=== PATIENT | female | born 1950 | race African-American/Black ===

== ENCOUNTER 2016-11-18 20:04 | Inpatient (IN) | payer MEDICAID ==
[~2016-11-18] VITALS: Ht 167.6 cm; Wt 60.0 kg
[~2016-11-18 20:04] MED LIST: BENZ1TAB10 PO; DIVA500T35 PO; ESCI20TA36 PO; GABA-533 PO; LOSA100T29 PO; MIRT30TA6 PO; OLAN15TA18 PO; OXCA300T PO; SIMV10TA6 PO
[2016-11-18] MEDS ORDERED: CEPH500 PO (20:32)
[2016-11-18] MEDS ORDERED: CLON.1 PO (20:32)
[2016-11-18] MEDS ORDERED: FERR-89 PO (20:32)
[2016-11-18 21:22] LABS: ADD UA MICROSCOPIC YES; APPEARANCE,URINE CLOUDY (CLEAR); GLUCOSE, URINE (UA) NEGATIVE (NEGATIVE); KETONES,URINE NEGATIVE (NEGATIVE); LEUKOCYTE ESTERASE ,URINE MODERATE (NEGATIVE); OCCULT BLOOD,URINE LARGE (NEGATIVE); PH,URINE 5.5 (5.0-8.0); PROTEIN,URINE SEE CONFIRM (NEGATIVE)
[2016-11-18 21:39] LABS: SULFOSALICYLIC ACID,URINE 2+ (Negative)
[2016-11-18 21:40] LABS: SQUAMOUS EPITHELIAL CELL,UR Moderate /LPF (None Seen)
[2016-11-18 21:41] LABS: RBC,URINE 51-100 /HPF (0-2); WBC,URINE 26-50 /HPF (0-5)
[2016-11-18 21:42] LABS: CREATININE 1.41 mg/dL (0.60-1.30); POTASSIUM 3.6 mmol/L (3.5-5.1)
[2016-11-18 21:50] LABS: ALBUMIN 3.2 g/dL (3.4-5.0); BILIRUBIN,TOTAL 0.1 mg/dL (0.1-1.0); TOTAL PROTEIN, SERUM 8.3 g/dL (6.4-8.2)
[2016-11-18 21:51] LABS: BASOPHILS % (AUTO) 0.1 % (0.0-2.0); EOSINOPHILS # (AUTO) 0.08 K/uL (0.00-0.70); EOSINOPHILS % (AUTO) 1.57 % (1.0-6.0); HEMATOCRIT 33.4 % (36-46); HEMOGLOBIN 10.5 g/dL (12.0-16.0); LYMPHOCYTES # (AUTO) 2.6 K/uL (1.0-4.8); LYMPHOCYTES % (AUTO) 48.9 % (22.0-44.0); MEAN CORPUSCULAR HGB CONC 31.5 G/dL (31.0-37.0); MEAN CORPUSCULAR VOLUME 70 fL (80-100); MONOCYTES # (AUTO) 0.4 K/uL (0.1-1.0); MONOCYTES % (AUTO) 8.3 % (2.0-9.0); NEUTROPHILS # (AUTO) 2.2 K/uL (1.8-7.7); NEUTROPHILS % (AUTO) 41.2 % (40.0-70.0); PLATELET COUNT (AUTO) 141 K/uL (150-450); RED BLOOD CELL COUNT(AUTO) 4.77 MIL/uL (4.00-5.20); RED CELL DISTRIBUTION WIDTH 21.5 % (11.5-14.5); WHITE BLOOD COUNT (AUTO) 5.3 K/uL (4.5-11.0)
[2016-11-18] MEDS ORDERED: 0.9% SODIUM CHLORIDE 10 ML SYRINGE IVP PRN (23:45)
[2016-11-18] MEDS ORDERED: LORazepam 2 MG/ML VIAL IVP ONE (23:45)
[2016-11-18] MEDS ORDERED: ACETAMINOPHEN 325 MG TABLET PO PRN (23:45)
[2016-11-18] MEDS ORDERED: CefTRIAXone 1 GM/DEXTROSE 50 ML IV ONE (23:45)
[2016-11-18] MEDS ORDERED: ONDANSETRON HCL 4 MG/2 ML VIAL IVP PRN (23:45)
[2016-11-19] VITALS (7 sets, daily range): BP systolic 110–150; BP diastolic 67–80
[2016-11-19] MEDS ORDERED: IPRATROPIUM BROMIDE 0.5 MG/2.5 ML NEB SOLUTION NEB PRN (00:30)
[2016-11-19] MEDS ORDERED: ALBUTEROL SULFATE 2.5 MG/0.5 ML NEB SOLUTION NEB PRN (00:30)
[2016-11-19] MEDS ORDERED: ACETAMINOPHEN 325 MG TABLET PO PRN (00:30)
[2016-11-19] MEDS ORDERED: BISACODYL 10 MG RECTAL RECTAL SUPPOSITORY PR PRN (00:30)
[2016-11-19] MEDS: ZOLPIDEM TARTRATE 5 MG TABLET PO PRN (00:57)
[2016-11-19] MEDS: SODIUM CHLORIDE 0.9% 1,000 ML IV SCH ×2 (00:58→14:52)
[2016-11-19] MEDS: GABAPENTIN 400 MG CAPSULE PO SCH ×3 (08:04→19:39)
[2016-11-19] MEDS: HYDROCODONE/ACETAMINOPHEN 5-325 MG TABLET PO PRN ×3 (08:05→19:40)
[2016-11-19] MEDS: BENZTROPINE MESYLATE 1 MG TABLET PO SCH ×2 (08:05→19:39)
[2016-11-19] MEDS: DIVALPROEX SODIUM 500 MG DR TABLET PO SCH ×3 (08:05→19:40)
[2016-11-19] MEDS: ESCITALOPRAM OXALATE 20 MG TABLET PO SCH (08:05)
[2016-11-19] MEDS: PANTOPRAZOLE SODIUM 40 MG DR TABLET PO SCH (08:06)
[2016-11-19] MEDS: OXcarbazepine 300 MG TABLET PO SCH (08:06)
[2016-11-19] MEDS: HEPARIN SODIUM,PORCINE 5,000 UNITS/ML VIAL SQ SCH ×2 (08:06→19:40)
[2016-11-19] MEDS ORDERED: PHENAZOPYRIDINE HCL 200 MG TABLET PO PRN (17:45)
[2016-11-19] MEDS: MIRTAZAPINE 30 MG TABLET PO SCH (19:41)
[2016-11-19] MEDS: CefTRIAXone 1 GM/DEXTROSE 50 ML IV SCH (23:21)
[2016-11-20] VITALS (7 sets, daily range): BP systolic 139–157; BP diastolic 69–85
[2016-11-20] MEDS: SODIUM CHLORIDE 0.9% 1,000 ML IV SCH ×3 (05:15→15:45)
[2016-11-20 05:54] LABS: BASOPHILS # (AUTO) 0.03 K/uL (0.00-0.20); BASOPHILS % (AUTO) 0.7 % (0.0-2.0); EOSINOPHILS # (AUTO) 0.07 K/uL (0.00-0.70); EOSINOPHILS % (AUTO) 1.51 % (1.0-6.0); HEMATOCRIT 30.6 % (36-46); HEMOGLOBIN 9.5 g/dL (12.0-16.0); LYMPHOCYTES # (AUTO) 3.1 K/uL (1.0-4.8); LYMPHOCYTES % (AUTO) 69.5 % (22.0-44.0); MEAN CORPUSCULAR HEMOGLOBIN 21.8 pg (26.0-34.0); MEAN CORPUSCULAR HGB CONC 30.9 G/dL (31.0-37.0); MEAN CORPUSCULAR VOLUME 71 fL (80-100); MONOCYTES # (AUTO) 0.3 K/uL (0.1-1.0); NEUTROPHILS % (AUTO) 21.3 % (40.0-70.0); PLATELET COUNT (AUTO) 113 K/uL (150-450); RED BLOOD CELL COUNT(AUTO) 4.33 MIL/uL (4.00-5.20); RED CELL DISTRIBUTION WIDTH 21.4 % (11.5-14.5); WHITE BLOOD COUNT (AUTO) 4.5 K/uL (4.5-11.0)
[2016-11-20 06:12] LABS: ALBUMIN 2.5 g/dL (3.4-5.0); BILIRUBIN,TOTAL 0.2 mg/dL (0.1-1.0); CALCIUM, TOTAL 8.3 mg/dL (8.8-10.5); CREATININE 1.14 mg/dL (0.60-1.30); MAGNESIUM 1.6 mg/dL (1.80-2.40); POTASSIUM 4.1 mmol/L (3.5-5.1); TOTAL PROTEIN, SERUM 6.8 g/dL (6.4-8.2)
[2016-11-20] MEDS: HEPARIN SODIUM,PORCINE 5,000 UNITS/ML VIAL SQ SCH ×2 (08:39→20:12)
[2016-11-20] MEDS: DIVALPROEX SODIUM 500 MG DR TABLET PO SCH ×3 (08:39→20:11)
[2016-11-20] MEDS: PANTOPRAZOLE SODIUM 40 MG DR TABLET PO SCH (08:39)
[2016-11-20] MEDS: BENZTROPINE MESYLATE 1 MG TABLET PO SCH ×2 (08:39→20:11)
[2016-11-20] MEDS: GABAPENTIN 400 MG CAPSULE PO SCH ×3 (08:39→20:11)
[2016-11-20] MEDS: ESCITALOPRAM OXALATE 20 MG TABLET PO SCH (08:39)
[2016-11-20] MEDS: OXcarbazepine 300 MG TABLET PO SCH (08:39)
[2016-11-20 09:35] LABS: RBC MORPHOLOGY COMMENT ABNORMAL RBC MORPH
[2016-11-20] MEDS: PHENAZOPYRIDINE HCL 200 MG TABLET PO SCH ×3 (10:29→20:11)
[2016-11-20] MEDS: HYDROCODONE/ACETAMINOPHEN 5-325 MG TABLET PO PRN (10:29)
[2016-11-20] MEDS: MIRTAZAPINE 30 MG TABLET PO SCH (20:12)
[2016-11-20] MEDS: CefTRIAXone 1 GM/DEXTROSE 50 ML IV SCH (22:02)
[2016-11-20] MEDS: ZOLPIDEM TARTRATE 5 MG TABLET PO PRN (22:02)
[2016-11-21 04:32] VITALS: BP 127/70
[2016-11-21 08:08] VITALS: BP 135/78
[2016-11-21] MEDS: DIVALPROEX SODIUM 500 MG DR TABLET PO SCH ×3 (08:17→20:12)
[2016-11-21] MEDS: ESCITALOPRAM OXALATE 20 MG TABLET PO SCH (08:17)
[2016-11-21] MEDS: HEPARIN SODIUM,PORCINE 5,000 UNITS/ML VIAL SQ SCH ×2 (08:17→20:13)
[2016-11-21] MEDS: PHENAZOPYRIDINE HCL 200 MG TABLET PO SCH ×3 (08:17→20:13)
[2016-11-21] MEDS: OXcarbazepine 300 MG TABLET PO SCH (08:17)
[2016-11-21] MEDS: GABAPENTIN 400 MG CAPSULE PO SCH ×3 (08:17→20:13)
[2016-11-21] MEDS: PANTOPRAZOLE SODIUM 40 MG DR TABLET PO SCH (08:17)
[2016-11-21] MEDS: BENZTROPINE MESYLATE 1 MG TABLET PO SCH ×2 (08:17→20:13)
[2016-11-21 08:44] LABS: EOSINOPHILS % (AUTO) 1.9 % (1.0-6.0); HEMATOCRIT 33.5 % (36-46); HEMOGLOBIN 10.3 g/dL (12.0-16.0); LYMPHOCYTES # (AUTO) 2.6 K/uL (1.0-4.8); LYMPHOCYTES % (AUTO) 72.6 % (22.0-44.0); MEAN CORPUSCULAR HEMOGLOBIN 21.7 pg (26.0-34.0); MEAN CORPUSCULAR HGB CONC 30.8 G/dL (31.0-37.0); MEAN CORPUSCULAR VOLUME 71 fL (80-100); MONOCYTES # (AUTO) 0.4 K/uL (0.1-1.0); MONOCYTES % (AUTO) 10.1 % (2.0-9.0); NEUTROPHILS # (AUTO) 0.6 K/uL (1.8-7.7); NEUTROPHILS % (AUTO) 15.4 % (40.0-70.0); PLATELET COUNT (AUTO) 118 K/uL (150-450); RED BLOOD CELL COUNT(AUTO) 4.73 MIL/uL (4.00-5.20); WHITE BLOOD COUNT (AUTO) 3.6 K/uL (4.5-11.0)
[2016-11-21 08:57] LABS: CALCIUM, TOTAL 9.1 mg/dL (8.8-10.5); CREATININE 1.26 mg/dL (0.60-1.30); POTASSIUM 4.1 mmol/L (3.5-5.1)
[2016-11-21 09:03] LABS: ALBUMIN 2.9 g/dL (3.4-5.0); BILIRUBIN,TOTAL 0.2 mg/dL (0.1-1.0); TOTAL PROTEIN, SERUM 7.6 g/dL (6.4-8.2)
[2016-11-21] MEDS: ONDANSETRON HCL 4 MG/2 ML VIAL IVP PRN ×2 (09:33→18:33)
[2016-11-21 09:52] LABS: RBC MORPHOLOGY COMMENT ABNORMAL RBC MORPH
[2016-11-21 11:25] VITALS: BP 142/68
[2016-11-21] MEDS: SODIUM CHLORIDE 0.9% 1,000 ML IV SCH (13:11)
[2016-11-21 15:13] VITALS: BP 120/72
[2016-11-21 19:55] VITALS: BP 151/62
[2016-11-21] MEDS: MIRTAZAPINE 30 MG TABLET PO SCH (20:14)
[2016-11-21] MEDS: HYDROCODONE/ACETAMINOPHEN 5-325 MG TABLET PO PRN (20:15)
[2016-11-21] MEDS: ZOLPIDEM TARTRATE 5 MG TABLET PO PRN (22:02)
[2016-11-21] MEDS: CefTRIAXone 1 GM/DEXTROSE 50 ML IV SCH (23:22)
[2016-11-21 23:30] VITALS: BP 134/70
[2016-11-22] MEDS ORDERED: PROPOFOL 1% 20 ML VIAL IVP ONE (01:02)
[2016-11-22] MEDS ORDERED: NEOSTIGMINE METHYLSULFATE 1 MG/ML 10 ML VIAL IVP ONE (01:02)
[2016-11-22] MEDS ORDERED: PHENYLEPHRINE HCL 10 MG/ML VIAL IVP ONE (01:02)
[2016-11-22] MEDS ORDERED: GLYCOPYRROLATE 0.2 MG/ML VIAL IM ONE (01:02)
[2016-11-22] MEDS ORDERED: ONDANSETRON HCL 4 MG/2 ML VIAL IVP ONE (01:02)
[2016-11-22] MEDS ORDERED: FentaNYL CITRATE-PF 100 MCG/2 ML VIAL IVP ONE (01:02)
[2016-11-22] MEDS ORDERED: KETOROLAC TROMETHAMINE 60 MG/2 ML VIAL IM ONE (01:02)
[2016-11-22] MEDS ORDERED: ROCURONIUM BROMIDE 10 MG/ML 5 ML VIAL IVP ONE (01:02)
[2016-11-22] MEDS ORDERED: LIDOCAINE HCL/PF 2% 5 ML VIAL IM ONE (01:02)
[2016-11-22] MEDS ORDERED: MIDAZOLAM HCL 2 MG/2 ML VIAL IVP ONE (01:02)
[2016-11-22] MEDS ORDERED: EPHEDrine SULFATE 50 MG/ML VIAL IM ONE (01:02)
[2016-11-22] MEDS: SODIUM CHLORIDE 0.9% 1,000 ML IV SCH (02:27)
[2016-11-22 04:56] VITALS: BP 145/81
[2016-11-22] MEDS ORDERED: RINGERS SOLUTION,LACTATED 1,000 ML IV ONE (06:30)
[2016-11-22] MEDS ORDERED: IOHEXOL 240 MG/ML 20 ML VIAL ONE ×2 (06:50)
[2016-11-22] MEDS ORDERED: SODIUM CL IRRIG SOLN BAG 3,000 ML IRRIG ONE (06:50)
[2016-11-22 06:53] LABS: HEMATOCRIT 28.9 % (36-46); HEMOGLOBIN 9.2 g/dL (12.0-16.0); MEAN CORPUSCULAR HEMOGLOBIN 22.1 pg (26.0-34.0); MEAN CORPUSCULAR HGB CONC 31.8 G/dL (31.0-37.0); MEAN CORPUSCULAR VOLUME 69 fL (80-100); PLATELET COUNT (AUTO) 121 K/uL (150-450); RED BLOOD CELL COUNT(AUTO) 4.16 MIL/uL (4.00-5.20); RED CELL DISTRIBUTION WIDTH 21.3 % (11.5-14.5); WHITE BLOOD COUNT (AUTO) 3.8 K/uL (4.5-11.0)
[2016-11-22 07:14] LABS: ALBUMIN 2.5 g/dL (3.4-5.0); CALCIUM, TOTAL 8.7 mg/dL (8.8-10.5); CREATININE 1.35 mg/dL (0.60-1.30); POTASSIUM 4.4 mmol/L (3.5-5.1); TOTAL PROTEIN, SERUM 6.8 g/dL (6.4-8.2)
[2016-11-22 07:46] LABS: BILIRUBIN,TOTAL 0.1 mg/dL (0.1-1.0)
[2016-11-22] MEDS ORDERED: RINGERS SOLUTION,LACTATED 500 ML IV ONE (09:02)
[2016-11-22] MEDS ORDERED: FentaNYL CITRATE-PF 100 MCG/2 ML VIAL IVP PRN (09:15)
[2016-11-22] MEDS ORDERED: MEPERIDINE-PF 25 MG/ML SYRINGE IVP PRN (09:15)
[2016-11-22] MEDS ORDERED: OXYGEN THERAPY IH SCH (09:26)
[2016-11-22] MEDS: DIVALPROEX SODIUM 500 MG DR TABLET PO SCH ×3 (10:05→20:46)
[2016-11-22] MEDS: GABAPENTIN 400 MG CAPSULE PO SCH ×3 (10:05→20:46)
[2016-11-22] MEDS: PANTOPRAZOLE SODIUM 40 MG DR TABLET PO SCH (10:06)
[2016-11-22] MEDS: BENZTROPINE MESYLATE 1 MG TABLET PO SCH ×2 (10:06→20:46)
[2016-11-22] MEDS: ESCITALOPRAM OXALATE 20 MG TABLET PO SCH (10:06)
[2016-11-22] MEDS: OXcarbazepine 300 MG TABLET PO SCH (10:06)
[2016-11-22] MEDS: HEPARIN SODIUM,PORCINE 5,000 UNITS/ML VIAL SQ SCH ×2 (10:06→20:46)
[2016-11-22] MEDS: FERROUS SULFATE 325 MG EC TABLET PO SCH ×3 (10:06→20:45)
[2016-11-22] MEDS: CloNIDine HCL 0.1 MG TABLET PO SCH ×2 (10:06→20:45)
[2016-11-22] MEDS: PHENAZOPYRIDINE HCL 200 MG TABLET PO SCH ×3 (10:07→20:45)
[2016-11-22] MEDS: HYDROCODONE/ACETAMINOPHEN 5-325 MG TABLET PO PRN (10:18)
[2016-11-22 10:48] LABS: BAND NEUTROPHILS % (MANUAL) 7 % (1-5); LYMPHOCYTES % (MANUAL) 57 % (22-44); RBC MORPHOLOGY COMMENT ABNORMAL RBC MORPH; TOTAL CELLS COUNTED 100
[2016-11-22 11:06] VITALS: BP 184/87
[2016-11-22 15:09] VITALS: BP 169/92
[2016-11-22 16:22] VITALS: BP 147/82
[2016-11-22 19:29] VITALS: BP 133/61
[2016-11-22] MEDS: SIMVASTATIN 10 MG TABLET PO SCH (20:45)
[2016-11-22] MEDS: MIRTAZAPINE 30 MG TABLET PO SCH (20:46)
[2016-11-22] MEDS: CefTRIAXone 1 GM/DEXTROSE 50 ML IV SCH (22:52)
[2016-11-22 22:58] VITALS: BP 148/74
[2016-11-23 05:20] VITALS: BP 124/74
[2016-11-23] MEDS: HYDROCODONE/ACETAMINOPHEN 5-325 MG TABLET PO PRN ×3 (05:39→20:37)
[2016-11-23] MEDS: SODIUM CHLORIDE 0.9% 1,000 ML IV SCH ×2 (05:39→15:49)
[2016-11-23 06:51] LABS: HEMATOCRIT 27.3 % (36-46); HEMOGLOBIN 8.7 g/dL (12.0-16.0); MEAN CORPUSCULAR HEMOGLOBIN 22.4 pg (26.0-34.0); MEAN CORPUSCULAR HGB CONC 31.9 G/dL (31.0-37.0); MEAN CORPUSCULAR VOLUME 70 fL (80-100); PLATELET COUNT (AUTO) 88 K/uL (150-450); RED BLOOD CELL COUNT(AUTO) 3.89 MIL/uL (4.00-5.20); RED CELL DISTRIBUTION WIDTH 21.4 % (11.5-14.5); WHITE BLOOD COUNT (AUTO) 4.3 K/uL (4.5-11.0)
[2016-11-23 07:15] VITALS: BP 131/78
[2016-11-23 07:19] LABS: ALBUMIN 2.5 g/dL (3.4-5.0); BILIRUBIN,TOTAL 0.2 mg/dL (0.1-1.0); CALCIUM, TOTAL 8.5 mg/dL (8.8-10.5); CREATININE 1.29 mg/dL (0.60-1.30); POTASSIUM 4.3 mmol/L (3.5-5.1); TOTAL PROTEIN, SERUM 6.5 g/dL (6.4-8.2)
[2016-11-23 08:03] LABS: BAND NEUTROPHILS % (MANUAL) 9 % (1-5); LYMPHOCYTES % (MANUAL) 62 % (22-44); RBC MORPHOLOGY COMMENT ABNORMAL RBC MORPH; TOTAL CELLS COUNTED 100
[2016-11-23] MEDS: HEPARIN SODIUM,PORCINE 5,000 UNITS/ML VIAL SQ SCH ×2 (08:35→21:12)
[2016-11-23] MEDS: GABAPENTIN 400 MG CAPSULE PO SCH ×3 (08:35→20:38)
[2016-11-23] MEDS: FERROUS SULFATE 325 MG EC TABLET PO SCH ×4 (08:35→20:38)
[2016-11-23] MEDS: ESCITALOPRAM OXALATE 20 MG TABLET PO SCH (08:36)
[2016-11-23] MEDS: PANTOPRAZOLE SODIUM 40 MG DR TABLET PO SCH (08:36)
[2016-11-23] MEDS: DIVALPROEX SODIUM 500 MG DR TABLET PO SCH ×3 (08:36→20:38)
[2016-11-23] MEDS: BENZTROPINE MESYLATE 1 MG TABLET PO SCH ×2 (08:36→20:38)
[2016-11-23] MEDS: PHENAZOPYRIDINE HCL 200 MG TABLET PO SCH ×3 (08:36→20:38)
[2016-11-23] MEDS: CloNIDine HCL 0.1 MG TABLET PO SCH ×2 (08:37→20:38)
[2016-11-23] MEDS: OXcarbazepine 300 MG TABLET PO SCH (08:37)
[2016-11-23 11:27] VITALS: BP 134/66
[2016-11-23 15:15] VITALS: BP 142/65
[2016-11-23] MEDS: MAGNESIUM HYDROXIDE SUSPENSION 30 ML UDCUP PO PRN (17:21)
[2016-11-23 20:01] VITALS: BP 148/73
[2016-11-23] MEDS: SIMVASTATIN 10 MG TABLET PO SCH (20:38)
[2016-11-23] MEDS: MIRTAZAPINE 30 MG TABLET PO SCH (20:38)
[2016-11-23] MEDS: CefTRIAXone 1 GM/DEXTROSE 50 ML IV SCH (22:30)
[2016-11-24 00:05] VITALS: BP 142/74
[2016-11-24] MEDS: HYDROCODONE/ACETAMINOPHEN 5-325 MG TABLET PO PRN ×2 (00:34→08:03)
[2016-11-24] MEDS: ZOLPIDEM TARTRATE 5 MG TABLET PO PRN (00:34)
[2016-11-24] MEDS: SODIUM CHLORIDE 0.9% 1,000 ML IV SCH (00:34)
[2016-11-24 06:14] VITALS: BP 142/71
[2016-11-24 07:09] LABS: HEMATOCRIT 28.8 % (36-46); HEMOGLOBIN 8.9 g/dL (12.0-16.0); MEAN CORPUSCULAR VOLUME 71 fL (80-100); PLATELET COUNT (AUTO) 92 K/uL (150-450); RED BLOOD CELL COUNT(AUTO) 4.06 MIL/uL (4.00-5.20); RED CELL DISTRIBUTION WIDTH 20.6 % (11.5-14.5)
[2016-11-24 08:01] LABS: ALBUMIN 2.7 g/dL (3.4-5.0); BILIRUBIN,TOTAL 0.2 mg/dL (0.1-1.0); CALCIUM, TOTAL 8.6 mg/dL (8.8-10.5); CREATININE 1.25 mg/dL (0.60-1.30); POTASSIUM 4.5 mmol/L (3.5-5.1)
[2016-11-24] MEDS: FERROUS SULFATE 325 MG EC TABLET PO SCH ×2 (08:03→11:22)
[2016-11-24] MEDS: DIVALPROEX SODIUM 500 MG DR TABLET PO SCH (08:03)
[2016-11-24] MEDS: PHENAZOPYRIDINE HCL 200 MG TABLET PO SCH (08:03)
[2016-11-24] MEDS: BENZTROPINE MESYLATE 1 MG TABLET PO SCH (08:03)
[2016-11-24] MEDS: PANTOPRAZOLE SODIUM 40 MG DR TABLET PO SCH (08:03)
[2016-11-24] MEDS: HEPARIN SODIUM,PORCINE 5,000 UNITS/ML VIAL SQ SCH (08:03)
[2016-11-24] MEDS: CloNIDine HCL 0.1 MG TABLET PO SCH (08:03)
[2016-11-24] MEDS: GABAPENTIN 400 MG CAPSULE PO SCH (08:03)
[2016-11-24] MEDS: OXcarbazepine 300 MG TABLET PO SCH (08:04)
[2016-11-24] MEDS: ESCITALOPRAM OXALATE 20 MG TABLET PO SCH (08:04)
[2016-11-24 08:06] VITALS: BP 144/80
[2016-11-24 08:48] LABS: LYMPHOCYTES % (MANUAL) 53 % (22-44); TOTAL CELLS COUNTED 100
[2016-11-24] MEDS: MAGNESIUM HYDROXIDE SUSPENSION 30 ML UDCUP PO PRN (11:22)
[2016-11-24 12:08] VITALS: BP 148/77
[2016-11-24] MEDS ORDERED: FERR-89 PO (14:33)
[2016-11-29 09:33] LABS: STONE COLOR RED; STONE COMMENT Comment:
[2017-03-19] MEDS ORDERED: QUET25TA PO (13:59)
[2017-03-19] MEDS ORDERED: DIVA500T35 PO (13:59)
[2017-03-19] MEDS ORDERED: CLON.1 PO (14:00)
[2017-03-19] MEDS ORDERED: CIP250 PO (14:01)
[2017-03-19] MEDS ORDERED: AMLO-511 PO (14:02)
[2017-03-19] MEDS ORDERED: FERR-89 PO (14:02)
[2017-03-19] MEDS ORDERED: PROP10 PO (14:02)
== END 2016-11-24 15:25 | disposition home or self-care (01) | DRG 710 ==
LOC: EMS 20:08 → 6N 23:49
PROVIDERS: ADMIT Internal Medicine; ATTEND Internal Medicine
PROC: BT1F1ZZ Fluoroscopy of Left Kidney, Ureter and Bladder using Low Osmolar Contrast (ICD-10-PCS; 2016-11-22)
PROC: 0T778DZ Dilation of Left Ureter with Intraluminal Device, Via Natural or Artificial Opening Endoscopic (ICD-10-PCS; 2016-11-22)
PROC: 0TP98DZ Removal of Intraluminal Device from Ureter, Via Natural or Artificial Opening Endoscopic (ICD-10-PCS; 2016-11-22)
PROC: 0TC78ZZ Extirpation of Matter from Left Ureter, Via Natural or Artificial Opening Endoscopic (ICD-10-PCS; principal; 2016-11-22 07:30)
DX: A41.9 Sepsis, unspecified organism (principal); N17.9 Acute kidney failure, unspecified; E44.1 Mild protein-calorie malnutrition; J44.9 Chronic obstructive pulmonary disease, unspecified; N20.2 Calculus of kidney with calculus of ureter; N13.9 Obstructive and reflux uropathy, unspecified; N39.0 Urinary tract infection, site not specified; I10 Essential (primary) hypertension; M19.90 Unspecified osteoarthritis, unspecified site; K59.00 Constipation, unspecified; D64.9 Anemia, unspecified; E78.00 Pure hypercholesterolemia, unspecified; E78.5 Hyperlipidemia, unspecified; F17.210 Nicotine dependence, cigarettes, uncomplicated; I25.10 Atherosclerotic heart disease of native coronary artery without angina pectoris; F41.8 Other specified anxiety disorders; Z96.649 Presence of unspecified artificial hip joint; Z59.0 Homelessness; Z87.442 Personal history of urinary calculi; Z90.710 Acquired absence of both cervix and uterus; Z98.890 Other specified postprocedural states; Z68.21 Body mass index [BMI] 21.0-21.9, adult; Z88.0 Allergy status to penicillin; Z88.8 Allergy status to other drugs, medicaments and biological substances; Z79.899 Other long term (current) drug therapy; Z87.440 Personal history of urinary (tract) infections; Z71.6 Tobacco abuse counseling
CPT/HCPCS: 70450; 74000; 74010; 74176; 74430; 83735; 84100; 87040; 87086; 88300; 93005; 96365; 96375; 99285; J0696; J1644; J1885; J2060; J2250; J2370; J2405; J2704; J3010; J3490; J7030; J7120; Q9966

== ENCOUNTER 2016-11-26 13:29 | Emergency (ER) | payer MEDICAID ==
[~2016-11-26] VITALS: Ht 165.1 cm; Wt 54.5 kg
[~2016-11-26 13:29] MED LIST changes: +CLON.1 PO; +FERR-89 PO
[2016-11-26 16:39] VITALS: BP 140/80
[2016-11-26] MEDS ORDERED: LORazepam 2 MG TABLET PO ONE (16:45)
[2017-03-19] MEDS ORDERED: DIVA500T35 PO (13:59)
[2017-03-19] MEDS ORDERED: QUET25TA PO (13:59)
[2017-03-19] MEDS ORDERED: CLON.1 PO (14:00)
[2017-03-19] MEDS ORDERED: CIP250 PO (14:01)
[2017-03-19] MEDS ORDERED: PROP10 PO (14:02)
[2017-03-19] MEDS ORDERED: FERR-89 PO (14:02)
[2017-03-19] MEDS ORDERED: AMLO-511 PO (14:02)
== END 2016-11-26 17:37 | disposition home or self-care (01) ==
LOC: EMS 13:31
DX: F41.9 Anxiety disorder, unspecified (principal); M79.2 Neuralgia and neuritis, unspecified; E78.00 Pure hypercholesterolemia, unspecified; I10 Essential (primary) hypertension; F17.210 Nicotine dependence, cigarettes, uncomplicated; F11.90 Opioid use, unspecified, uncomplicated; Z88.5 Allergy status to narcotic agent; Z88.0 Allergy status to penicillin
CPT/HCPCS: 99283

== ENCOUNTER 2016-12-04 13:05 | Emergency (ER) | payer MEDICAID ==
[~2016-12-04] VITALS: Ht 167.6 cm; Wt 66.0 kg
[2016-12-04 13:30] VITALS: BP 120/87
[2016-12-04] MEDS ORDERED: HydrOXYzine PAMOATE 50 MG CAPSULE PO ONE (15:45)
[2017-03-19] MEDS ORDERED: DIVA500T35 PO (13:59)
[2017-03-19] MEDS ORDERED: QUET25TA PO (13:59)
[2017-03-19] MEDS ORDERED: CLON.1 PO (14:00)
[2017-03-19] MEDS ORDERED: CIP250 PO (14:01)
[2017-03-19] MEDS ORDERED: FERR-89 PO (14:02)
[2017-03-19] MEDS ORDERED: PROP10 PO (14:02)
[2017-03-19] MEDS ORDERED: AMLO-511 PO (14:02)
== END 2016-12-04 18:09 | disposition home or self-care (01) ==
LOC: EMS 13:06
DX: F41.9 Anxiety disorder, unspecified (principal); I10 Essential (primary) hypertension; E78.00 Pure hypercholesterolemia, unspecified; F17.210 Nicotine dependence, cigarettes, uncomplicated; F11.90 Opioid use, unspecified, uncomplicated; Z88.8 Allergy status to other drugs, medicaments and biological substances; Z88.0 Allergy status to penicillin
CPT/HCPCS: 99283; 99284

== ENCOUNTER 2016-12-27 09:11 | Emergency (ER) | payer MEDICAID ==
[~2016-12-27] VITALS: Ht 167.6 cm; Wt 59.1 kg
[~2016-12-27 09:11] MED LIST changes: -FERR-89 PO; +FERS325 PO
[2016-12-27] MEDS ORDERED: LORazepam 2 MG/ML VIAL IM ONE (09:30)
[2016-12-27 11:19] VITALS: BP 139/90
== END 2016-12-27 11:20 | disposition home or self-care (01) ==
LOC: EMS 09:13
DX: F41.9 Anxiety disorder, unspecified (principal); I10 Essential (primary) hypertension; E78.00 Pure hypercholesterolemia, unspecified; F17.210 Nicotine dependence, cigarettes, uncomplicated; Z88.0 Allergy status to penicillin; Z88.8 Allergy status to other drugs, medicaments and biological substances
CPT/HCPCS: 96372; 99284; 99406; J2060

== ENCOUNTER 2016-12-29 08:00 | Emergency (ER) | payer MEDICAID ==
[~2016-12-29] VITALS: Ht 167.6 cm; Wt 63.6 kg
[~2016-12-29 08:00] MED LIST changes: +FERR-89 PO; -FERS325 PO
[2016-12-29] MEDS ORDERED: LORazepam 2 MG/ML VIAL IM ONE (08:30)
[2016-12-29 09:23] VITALS: BP 116/76
[2017-03-19] MEDS ORDERED: DIVA500T35 PO (13:59)
[2017-03-19] MEDS ORDERED: QUET25TA PO (13:59)
[2017-03-19] MEDS ORDERED: CLON.1 PO (14:00)
[2017-03-19] MEDS ORDERED: CIP250 PO (14:01)
[2017-03-19] MEDS ORDERED: PROP10 PO (14:02)
[2017-03-19] MEDS ORDERED: AMLO-511 PO (14:02)
[2017-03-19] MEDS ORDERED: FERR-89 PO (14:02)
== END 2016-12-29 09:28 | disposition home or self-care (01) ==
LOC: EMS 08:01
DX: F41.9 Anxiety disorder, unspecified (principal); E78.00 Pure hypercholesterolemia, unspecified; I10 Essential (primary) hypertension; F17.210 Nicotine dependence, cigarettes, uncomplicated; F11.90 Opioid use, unspecified, uncomplicated; Z88.0 Allergy status to penicillin; Z88.5 Allergy status to narcotic agent
CPT/HCPCS: 96372; 99284; J2060

== ENCOUNTER 2016-12-30 09:24 | Emergency (ER) | payer MEDICAID ==
[~2016-12-30] VITALS: Ht 167.6 cm; Wt 63.6 kg
[2016-12-30] MEDS ORDERED: LORazepam 2 MG TABLET PO ONE (10:30)
[2016-12-30 10:45] LABS: APPEARANCE,URINE TURBID (CLEAR); GLUCOSE, URINE (UA) NEGATIVE (NEGATIVE); KETONES,URINE TRACE mg/dL (NEGATIVE); LEUKOCYTE ESTERASE ,URINE SMALL (NEGATIVE); OCCULT BLOOD,URINE LARGE (NEGATIVE); PH,URINE 5.5 (5.0-8.0); PROTEIN,URINE SEE CONFIRM (NEGATIVE)
[2016-12-30 11:04] LABS: SULFOSALICYLIC ACID,URINE 2+ (Negative)
[2016-12-30 11:06] LABS: RBC,URINE >100 /HPF (0-2)
[2016-12-30 11:07] LABS: SQUAMOUS EPITHELIAL CELL,UR Few /LPF (None Seen)
[2016-12-30] MEDS ORDERED: CIPROFLOXACIN HCL 250 MG TABLET PO ONE (11:45)
[2016-12-30 12:01] VITALS: BP 148/78
[2017-03-19] MEDS ORDERED: QUET25TA PO (13:59)
[2017-03-19] MEDS ORDERED: DIVA500T35 PO (13:59)
[2017-03-19] MEDS ORDERED: CLON.1 PO (14:00)
[2017-03-19] MEDS ORDERED: CIP250 PO (14:01)
[2017-03-19] MEDS ORDERED: PROP10 PO (14:02)
[2017-03-19] MEDS ORDERED: FERR-89 PO (14:02)
[2017-03-19] MEDS ORDERED: AMLO-511 PO (14:02)
== END 2016-12-30 12:06 | disposition home or self-care (01) ==
LOC: EMS 09:26
DX: F41.9 Anxiety disorder, unspecified (principal); N39.0 Urinary tract infection, site not specified; I10 Essential (primary) hypertension; E78.00 Pure hypercholesterolemia, unspecified; F17.210 Nicotine dependence, cigarettes, uncomplicated; F11.90 Opioid use, unspecified, uncomplicated; Z88.0 Allergy status to penicillin; Z88.8 Allergy status to other drugs, medicaments and biological substances
CPT/HCPCS: 87086; 93005; 99285

== ENCOUNTER 2016-12-31 10:32 | Emergency (ER) | payer MEDICAID ==
[~2016-12-31] VITALS: Ht 167.6 cm; Wt 63.6 kg
[~2016-12-31 10:32] MED LIST changes: -FERR-89 PO; +FERS325 PO
[2016-12-31] MEDS ORDERED: LORazepam 2 MG TABLET PO ONE (12:30)
[2016-12-31 13:12] LABS: BASOPHILS % (AUTO) 0.3 % (0.0-2.0); EOSINOPHILS % (AUTO) 0.5 % (1.0-6.0); HEMATOCRIT 32.8 % (36-46); HEMOGLOBIN 10.2 g/dL (12.0-16.0); MEAN CORPUSCULAR HEMOGLOBIN 21.7 pg (26.0-34.0); MEAN CORPUSCULAR VOLUME 70 fL (80-100); MONOCYTES # (AUTO) 0.3 K/uL (0.1-1.0); MONOCYTES % (AUTO) 6.4 % (2.0-9.0); NEUTROPHILS # (AUTO) 2.7 K/uL (1.8-7.7); NEUTROPHILS % (AUTO) 53.8 % (40.0-70.0); PLATELET COUNT (AUTO) 198 K/uL (150-450); RED BLOOD CELL COUNT(AUTO) 4.69 MIL/uL (4.00-5.20); RED CELL DISTRIBUTION WIDTH 20.7 % (11.5-14.5); WHITE BLOOD COUNT (AUTO) 5.1 K/uL (4.5-11.0)
[2016-12-31 13:13] LABS: RBC MORPHOLOGY COMMENT ABNORMAL RBC MORPH
[2016-12-31 13:22] LABS: ANION GAP 8 mmol/L (8-16); CALCIUM, TOTAL 9.3 mg/dL (8.8-10.5); CARBON DIOXIDE 29 mmol/L (22-29); CHLORIDE 105 mmol/L (98-107); CREATININE 1.32 mg/dL (0.60-1.30); GLOMERULAR FILTR. RATE CALC 49 mL/min (>60); SODIUM SERUM 142 mmol/L (136-145); UREA NITROGEN, BLOOD 25 mg/dL (7-18)
[2016-12-31 13:28] LABS: ALANINE AMINOTRANSFERASE 14 U/L (12-78); ALBUMIN 3.1 g/dL (3.4-5.0); ASPARTATE AMINOTRANSFERASE 16 U/L (15-37); BILIRUBIN,TOTAL 0.2 mg/dL (0.1-1.0); TOTAL PROTEIN, SERUM 8.3 g/dL (6.4-8.2)
[2016-12-31 15:42] VITALS: BP 120/65
== END 2016-12-31 15:51 | disposition home or self-care (01) ==
LOC: EMS 10:37
DX: F41.9 Anxiety disorder, unspecified (principal); I10 Essential (primary) hypertension; F17.210 Nicotine dependence, cigarettes, uncomplicated; F11.90 Opioid use, unspecified, uncomplicated; Z88.0 Allergy status to penicillin; Z88.8 Allergy status to other drugs, medicaments and biological substances
CPT/HCPCS: 36415; 80053; 85025; 99284; G0480

== ENCOUNTER 2017-01-01 14:08 | Emergency (ER) | payer MEDICAID ==
[~2017-01-01] VITALS: Ht 167.6 cm; Wt 59.1 kg
[~2017-01-01 14:08] MED LIST changes: +FERR-89 PO; -FERS325 PO
[2017-01-01] MEDS ORDERED: LORazepam 1 MG TABLET PO ONE (15:00)
[2017-01-01 16:22] VITALS: BP 117/71
[2017-03-19] MEDS ORDERED: QUET25TA PO (13:59)
[2017-03-19] MEDS ORDERED: DIVA500T35 PO (13:59)
[2017-03-19] MEDS ORDERED: CLON.1 PO (14:00)
[2017-03-19] MEDS ORDERED: CIP250 PO (14:01)
[2017-03-19] MEDS ORDERED: FERR-89 PO (14:02)
[2017-03-19] MEDS ORDERED: PROP10 PO (14:02)
[2017-03-19] MEDS ORDERED: AMLO-511 PO (14:02)
== END 2017-01-01 16:23 | disposition home or self-care (01) ==
LOC: EMS 14:10
DX: F41.1 Generalized anxiety disorder (principal); F31.9 Bipolar disorder, unspecified; F17.210 Nicotine dependence, cigarettes, uncomplicated; E78.00 Pure hypercholesterolemia, unspecified; I10 Essential (primary) hypertension; Z87.442 Personal history of urinary calculi; Z88.0 Allergy status to penicillin; Z88.1 Allergy status to other antibiotic agents
CPT/HCPCS: 99284; 99406

== ENCOUNTER 2017-01-03 08:17 | Emergency (ER) | payer MEDICAID ==
[~2017-01-03] VITALS: Ht 167.6 cm; Wt 59.0 kg
[~2017-01-03 08:17] MED LIST changes: -FERR-89 PO; +FERS325 PO
[2017-01-03] MEDS ORDERED: LORazepam 2 MG/ML VIAL IM ONE (11:00)
[2017-01-03 11:20] VITALS: BP 122/83
== END 2017-01-03 11:44 | disposition home or self-care (01) ==
LOC: EMS 08:19
DX: F41.9 Anxiety disorder, unspecified (principal); I10 Essential (primary) hypertension; G89.29 Other chronic pain; E78.00 Pure hypercholesterolemia, unspecified; F17.210 Nicotine dependence, cigarettes, uncomplicated; F11.90 Opioid use, unspecified, uncomplicated; F13.20 Sedative, hypnotic or anxiolytic dependence, uncomplicated; Z88.5 Allergy status to narcotic agent; Z88.0 Allergy status to penicillin
CPT/HCPCS: 96372; 99284; J2060

== ENCOUNTER 2017-01-04 06:30 | Emergency (ER) | payer MEDICAID ==
[~2017-01-04] VITALS: Ht 167.6 cm; Wt 63.0 kg
[2017-01-04 07:22] LABS: ANION GAP 9 mmol/L (8-16); CALCIUM, TOTAL 9.5 mg/dL (8.8-10.5); CARBON DIOXIDE 29 mmol/L (22-29); CHLORIDE 106 mmol/L (98-107); CREATININE 1.13 mg/dL (0.60-1.30); GLOMERULAR FILTR. RATE CALC 59 mL/min (>60); POTASSIUM 3.7 mmol/L (3.5-5.1); SODIUM SERUM 144 mmol/L (136-145); UREA NITROGEN, BLOOD 17 mg/dL (7-18)
[2017-01-04 07:27] LABS: ALANINE AMINOTRANSFERASE 15 U/L (12-78); ALBUMIN 3.4 g/dL (3.4-5.0); ASPARTATE AMINOTRANSFERASE 18 U/L (15-37); BILIRUBIN,TOTAL 0.2 mg/dL (0.1-1.0); TOTAL PROTEIN, SERUM 8.6 g/dL (6.4-8.2)
[2017-01-04 07:28] LABS: EOSINOPHILS % (AUTO) 0.8 % (1.0-6.0); HEMATOCRIT 34.3 % (36-46); HEMOGLOBIN 10.5 g/dL (12.0-16.0); LYMPHOCYTES # (AUTO) 1.2 K/uL (1.0-4.8); LYMPHOCYTES % (AUTO) 31.5 % (22.0-44.0); MEAN CORPUSCULAR HEMOGLOBIN 21.7 pg (26.0-34.0); MEAN CORPUSCULAR HGB CONC 30.7 G/dL (31.0-37.0); MEAN CORPUSCULAR VOLUME 71 fL (80-100); MONOCYTES # (AUTO) 0.3 K/uL (0.1-1.0); MONOCYTES % (AUTO) 9.2 % (2.0-9.0); NEUTROPHILS # (AUTO) 2.2 K/uL (1.8-7.7); NEUTROPHILS % (AUTO) 58.5 % (40.0-70.0); PLATELET COUNT (AUTO) 137 K/uL (150-450); RED BLOOD CELL COUNT(AUTO) 4.85 MIL/uL (4.00-5.20); RED CELL DISTRIBUTION WIDTH 21.4 % (11.5-14.5); WHITE BLOOD COUNT (AUTO) 3.7 K/uL (4.5-11.0)
[2017-01-04 07:50] LABS: RBC MORPHOLOGY COMMENT ABNORMAL RBC MORPH
[2017-01-04] MEDS ORDERED: LORazepam 1 MG TABLET PO ONE (08:00)
[2017-01-04 09:10] VITALS: BP 141/62
[2017-01-04] MEDS ORDERED: LORazepam 2 MG/ML VIAL IM ONE (09:15)
[2017-01-04] MEDS ORDERED: HALOPERIDOL LACTATE 5 MG/ML VIAL IM ONE (09:15)
== END 2017-01-04 10:45 | disposition home or self-care (01) ==
LOC: EMS 06:31
DX: F41.9 Anxiety disorder, unspecified (principal); Z88.0 Allergy status to penicillin; F17.210 Nicotine dependence, cigarettes, uncomplicated; F11.10 Opioid abuse, uncomplicated; E78.00 Pure hypercholesterolemia, unspecified; I10 Essential (primary) hypertension; Z87.442 Personal history of urinary calculi
CPT/HCPCS: 36415; 80053; 80307; 85025; 96372; 99284; G0480; J1630; J2060

== ENCOUNTER 2017-01-05 10:17 | Emergency (ER) | payer MEDICAID ==
[~2017-01-05] VITALS: Ht 167.6 cm; Wt 63.6 kg
[2017-01-05 11:17] LABS: HEMATOCRIT 33.4 % (36-46); HEMOGLOBIN 10.7 g/dL (12.0-16.0); MEAN CORPUSCULAR HEMOGLOBIN 22.2 pg (26.0-34.0); MEAN CORPUSCULAR HGB CONC 32.1 G/dL (31.0-37.0); MEAN CORPUSCULAR VOLUME 69 fL (80-100); PLATELET COUNT (AUTO) 118 K/uL (150-450); RED BLOOD CELL COUNT(AUTO) 4.83 MIL/uL (4.00-5.20); RED CELL DISTRIBUTION WIDTH 21.9 % (11.5-14.5); WHITE BLOOD COUNT (AUTO) 3.2 K/uL (4.5-11.0)
[2017-01-05 11:33] LABS: APPEARANCE,URINE CLOUDY (CLEAR); GLUCOSE, URINE (UA) NEGATIVE (NEGATIVE); KETONES,URINE NEGATIVE (NEGATIVE); LEUKOCYTE ESTERASE ,URINE SMALL (NEGATIVE); OCCULT BLOOD,URINE MODERATE (NEGATIVE); PROTEIN,URINE SEE CONFIRM (NEGATIVE)
[2017-01-05 11:34] LABS: ADD UA MICROSCOPIC YES
[2017-01-05 11:38] LABS: SULFOSALICYLIC ACID,URINE 2+ (Negative)
[2017-01-05 11:38] LABS: LYMPHOCYTES % (MANUAL) 28 % (22-44); REACTIVE LYMPHOCYTES 1 % (0-0); TOTAL CELLS COUNTED 100
[2017-01-05 11:39] LABS: SQUAMOUS EPITHELIAL CELL,UR Few /LPF (None Seen); WBC,URINE 26-50 /HPF (0-5)
[2017-01-05 11:40] LABS: CALCIUM OXALATE CRYSTALS,UR Few /LPF (None Seen)
[2017-01-05 11:42] LABS: ANION GAP 8 mmol/L (8-16); CALCIUM, TOTAL 9.4 mg/dL (8.8-10.5); CARBON DIOXIDE 29 mmol/L (22-29); CHLORIDE 106 mmol/L (98-107); CREATININE 1.06 mg/dL (0.60-1.30); GLOMERULAR FILTR. RATE CALC > 60 mL/min (>60); POTASSIUM 3.7 mmol/L (3.5-5.1); SODIUM SERUM 143 mmol/L (136-145); UREA NITROGEN, BLOOD 12 mg/dL (7-18)
[2017-01-05 11:47] LABS: ALANINE AMINOTRANSFERASE 16 U/L (12-78); ALBUMIN 3.3 g/dL (3.4-5.0); ASPARTATE AMINOTRANSFERASE 21 U/L (15-37); BILIRUBIN,TOTAL 0.2 mg/dL (0.1-1.0); TOTAL PROTEIN, SERUM 8.3 g/dL (6.4-8.2)
[2017-01-05] MEDS ORDERED: IBUPROFEN 600 MG TABLET PO ONE (13:00)
[2017-01-05] MEDS ORDERED: LORazepam 1 MG TABLET PO ONE (13:00)
[2017-01-05] MEDS ORDERED: LEVOFLOXACIN 500 MG TABLET PO ONE (13:00)
[2017-01-05 14:41] VITALS: BP 150/78
== END 2017-01-05 14:52 | disposition home or self-care (01) ==
LOC: EMS 10:18
DX: N39.0 Urinary tract infection, site not specified (principal); F11.10 Opioid abuse, uncomplicated; F17.210 Nicotine dependence, cigarettes, uncomplicated; F41.9 Anxiety disorder, unspecified; I10 Essential (primary) hypertension; E78.00 Pure hypercholesterolemia, unspecified; Z87.442 Personal history of urinary calculi; Z88.0 Allergy status to penicillin; Z88.1 Allergy status to other antibiotic agents; Z91.19 Patient's noncompliance with other medical treatment and regimen
CPT/HCPCS: 87086; 99284

== ENCOUNTER 2017-01-09 09:19 | Emergency (ER) | payer MEDICAID ==
[~2017-01-09] VITALS: Ht 167.6 cm; Wt 63.6 kg
[2017-01-09] MEDS ORDERED: CefTRIAXone 1 GM/DEXTROSE 50 ML IV ONE (11:45)
[2017-01-09] MEDS ORDERED: PHENAZOPYRIDINE HCL 100 MG TABLET PO ONE (11:45)
[2017-01-09] MEDS ORDERED: CefTRIAXone SODIUM 1 GM/VIAL IM ONE (11:45)
[2017-01-09] MEDS ORDERED: KETOROLAC TROMETHAMINE 30 MG/ML VIAL IVP ONE (11:45)
[2017-01-09] MEDS ORDERED: LIDOCAINE HCL/PF 1% 2 ML VIAL IM ONE (11:45)
[2017-01-09 12:50] VITALS: BP 163/89
== END 2017-01-09 12:55 | disposition home or self-care (01) ==
LOC: EMS 09:21
DX: N39.0 Urinary tract infection, site not specified (principal); I10 Essential (primary) hypertension; E78.00 Pure hypercholesterolemia, unspecified; F17.210 Nicotine dependence, cigarettes, uncomplicated; Z88.0 Allergy status to penicillin; Z88.8 Allergy status to other drugs, medicaments and biological substances
CPT/HCPCS: 96365; 96375; 99284; J0696; J1885; J3490

== ENCOUNTER 2017-01-11 07:38 | Emergency (ER) | payer MEDICAID ==
[~2017-01-11] VITALS: Ht 177.8 cm; Wt 77.3 kg
[~2017-01-11 07:38] MED LIST changes: +FERR-89 PO; -FERS325 PO
[2017-01-11] MEDS ORDERED: PHEN-853 PO (08:08)
[2017-01-11] MEDS ORDERED: CEFU250T87 PO (08:08)
[2017-01-11] MEDS ORDERED: KETOROLAC TROMETHAMINE 30 MG/ML VIAL IVP ONE (08:15)
[2017-01-11] MEDS ORDERED: SODIUM CHLORIDE 0.9% 1,000 ML IV ONE (08:15)
[2017-01-11 08:57] LABS: ANION GAP 10 mmol/L (8-16); CALCIUM, TOTAL 9.4 mg/dL (8.8-10.5); CARBON DIOXIDE 29 mmol/L (22-29); CHLORIDE 106 mmol/L (98-107); GLOMERULAR FILTR. RATE CALC > 60 mL/min (>60); SODIUM SERUM 145 mmol/L (136-145); UREA NITROGEN, BLOOD 17 mg/dL (7-18)
[2017-01-11 09:04] LABS: ALANINE AMINOTRANSFERASE 14 U/L (12-78); ALBUMIN 3.8 g/dL (3.4-5.0); ASPARTATE AMINOTRANSFERASE 17 U/L (15-37); BILIRUBIN,TOTAL 0.2 mg/dL (0.1-1.0); TOTAL PROTEIN, SERUM 8.6 g/dL (6.4-8.2)
[2017-01-11 09:07] LABS: HEMATOCRIT 37.8 % (36-46); HEMOGLOBIN 11.5 g/dL (12.0-16.0); MEAN CORPUSCULAR HEMOGLOBIN 21.6 pg (26.0-34.0); MEAN CORPUSCULAR HGB CONC 30.4 G/dL (31.0-37.0); MEAN CORPUSCULAR VOLUME 71 fL (80-100); PLATELET COUNT (AUTO) 123 K/uL (150-450); RED BLOOD CELL COUNT(AUTO) 5.34 MIL/uL (4.00-5.20); RED CELL DISTRIBUTION WIDTH 21.9 % (11.5-14.5); WHITE BLOOD COUNT (AUTO) 3.1 K/uL (4.5-11.0)
[2017-01-11 09:18] LABS: APPEARANCE,URINE CLOUDY (CLEAR); GLUCOSE, URINE (UA) NEGATIVE (NEGATIVE); KETONES,URINE NEGATIVE (NEGATIVE); LEUKOCYTE ESTERASE ,URINE NEGATIVE (NEGATIVE); OCCULT BLOOD,URINE SMALL (NEGATIVE); PH,URINE 5.5 (5.0-8.0); PROTEIN,URINE SEE CONFIRM (NEGATIVE)
[2017-01-11 09:19] LABS: ADD UA MICROSCOPIC YES
[2017-01-11 09:22] LABS: SULFOSALICYLIC ACID,URINE 2+ (Negative)
[2017-01-11 09:26] LABS: SQUAMOUS EPITHELIAL CELL,UR Few /LPF (None Seen)
[2017-01-11 09:27] LABS: EOSINOPHILS % (MANUAL) 2 % (1-6); LYMPHOCYTES % (MANUAL) 38 % (22-44); TOTAL CELLS COUNTED 100
[2017-01-11 09:42] LABS: VALPROIC ACID < 3 mcg/mL (50-100)
[2017-01-11] MEDS ORDERED: POTASSIUM CHLORIDE 20 MEQ ER TABLET PO ONE (11:15)
[2017-01-11] MEDS ORDERED: CefTRIAXone 1 GM/DEXTROSE 50 ML IV ONE (11:15)
[2017-01-11 11:52] VITALS: BP 153/89
[2017-03-19] MEDS ORDERED: QUET25TA PO (13:59)
[2017-03-19] MEDS ORDERED: DIVA500T35 PO (13:59)
[2017-03-19] MEDS ORDERED: CLON.1 PO (14:00)
[2017-03-19] MEDS ORDERED: CIP250 PO (14:01)
[2017-03-19] MEDS ORDERED: FERR-89 PO (14:02)
[2017-03-19] MEDS ORDERED: AMLO-511 PO (14:02)
[2017-03-19] MEDS ORDERED: PROP10 PO (14:02)
== END 2017-01-11 12:11 | disposition home or self-care (01) ==
LOC: EMS 07:39
DX: N39.0 Urinary tract infection, site not specified (principal); F41.9 Anxiety disorder, unspecified; F11.90 Opioid use, unspecified, uncomplicated; F19.90 Other psychoactive substance use, unspecified, uncomplicated; F17.210 Nicotine dependence, cigarettes, uncomplicated; Z88.0 Allergy status to penicillin; Z88.8 Allergy status to other drugs, medicaments and biological substances
CPT/HCPCS: 36415; 80053; 80164; 80307; 81001; 81002; 85025; 87086; 96361; 96365; 96375; 99285; J0696; J1885; J7030

== ENCOUNTER 2017-01-12 09:43 | Emergency (ER) | payer MEDICAID ==
[~2017-01-12] VITALS: Ht 162.6 cm; Wt 64.0 kg
[~2017-01-12 09:43] MED LIST changes: +CEFU250T87 PO; -FERR-89 PO; +FERS325 PO; +PHEN-853 PO
[2017-01-12 09:54] VITALS: BP 134/81
== END 2017-01-12 10:01 | disposition left against medical advice (07) ==
LOC: EMS 09:46
DX: F41.9 Anxiety disorder, unspecified (principal); N39.0 Urinary tract infection, site not specified; I10 Essential (primary) hypertension; E78.00 Pure hypercholesterolemia, unspecified; F17.210 Nicotine dependence, cigarettes, uncomplicated; F11.90 Opioid use, unspecified, uncomplicated; F19.90 Other psychoactive substance use, unspecified, uncomplicated; Z88.0 Allergy status to penicillin; Z88.8 Allergy status to other drugs, medicaments and biological substances
CPT/HCPCS: 99284; 99406

== ENCOUNTER 2017-01-17 08:29 | Emergency (ER) | payer MEDICAID ==
[~2017-01-17] VITALS: Ht 167.6 cm; Wt 63.6 kg
[2017-01-17] MEDS ORDERED: LORazepam 2 MG/ML VIAL IM ONE (08:45)
[2017-01-17] MEDS ORDERED: KETOROLAC TROMETHAMINE 30 MG/ML VIAL IVP ONE (09:00)
[2017-01-17] MEDS ORDERED: SODIUM CHLORIDE 0.9% 1,000 ML IV ONE (09:00)
[2017-01-17] MEDS ORDERED: ONDANSETRON HCL 4 MG/2 ML VIAL IVP ONE (09:00)
[2017-01-17 09:32] LABS: HEMATOCRIT 33.7 % (36-46); HEMOGLOBIN 10.3 g/dL (12.0-16.0); MEAN CORPUSCULAR HEMOGLOBIN 21.8 pg (26.0-34.0); MEAN CORPUSCULAR HGB CONC 30.5 G/dL (31.0-37.0); MEAN CORPUSCULAR VOLUME 71 fL (80-100); PLATELET COUNT (AUTO) 142 K/uL (150-450); RED BLOOD CELL COUNT(AUTO) 4.73 MIL/uL (4.00-5.20); RED CELL DISTRIBUTION WIDTH 21.7 % (11.5-14.5); WHITE BLOOD COUNT (AUTO) 5.9 K/uL (4.5-11.0)
[2017-01-17 09:41] LABS: CALCIUM, TOTAL 9.4 mg/dL (8.8-10.5); CREATININE 1.21 mg/dL (0.60-1.30); POTASSIUM 3.6 mmol/L (3.5-5.1)
[2017-01-17 09:47] LABS: ALBUMIN 3.5 g/dL (3.4-5.0); BILIRUBIN,TOTAL 0.1 mg/dL (0.1-1.0); TOTAL PROTEIN, SERUM 7.7 g/dL (6.4-8.2)
[2017-01-17] MEDS ORDERED: LORazepam 2 MG/ML VIAL IVP ONE (10:00)
[2017-01-17 10:43] LABS: APPEARANCE,URINE CLOUDY (CLEAR); GLUCOSE, URINE (UA) NEGATIVE (NEGATIVE); KETONES,URINE NEGATIVE (NEGATIVE); LEUKOCYTE ESTERASE ,URINE MODERATE (NEGATIVE); OCCULT BLOOD,URINE LARGE (NEGATIVE); PROTEIN,URINE SEE CONFIRM (NEGATIVE)
[2017-01-17 10:45] VITALS: BP 136/55
[2017-01-17 10:46] LABS: EOSINOPHILS % (MANUAL) 1 % (1-6); LYMPHOCYTES % (MANUAL) 30 % (22-44); TOTAL CELLS COUNTED 100
[2017-01-17 10:48] LABS: RBC MORPHOLOGY COMMENT ABNORMAL R
[2017-01-17 10:59] LABS: RBC,URINE 26-50 /HPF (0-2)
[2017-01-17 11:00] LABS: WBC,URINE 51-100 /HPF (0-5)
[2017-01-17 11:01] LABS: SQUAMOUS EPITHELIAL CELL,UR Moderate /LPF (None Seen); SULFOSALICYLIC ACID,URINE 3+ (Negative)
[2017-01-17] MEDS ORDERED: PHENAZOPYRIDINE HCL 100 MG TABLET PO ONE (11:15)
== END 2017-01-17 11:39 | disposition home or self-care (01) ==
LOC: EMS 08:30
DX: F41.9 Anxiety disorder, unspecified (principal); N39.0 Urinary tract infection, site not specified; I10 Essential (primary) hypertension; E78.00 Pure hypercholesterolemia, unspecified; F17.210 Nicotine dependence, cigarettes, uncomplicated; F11.90 Opioid use, unspecified, uncomplicated; Z88.0 Allergy status to penicillin; Z88.8 Allergy status to other drugs, medicaments and biological substances
CPT/HCPCS: 36415; 80053; 81001; 81002; 83690; 85025; 87086; 96361; 96374; 96375; 99285; J1885; J2060; J2405; J7030

== ENCOUNTER 2017-01-18 08:14 | Emergency (ER) | payer MEDICAID ==
[~2017-01-18] VITALS: Ht 167.6 cm; Wt 63.6 kg
[2017-01-18] MEDS ORDERED: HYDROCODONE/ACETAMINOPHEN 5-325 MG TABLET PO ONE (09:00)
[2017-01-18 09:25] LABS: ADD UA MICROSCOPIC YES; APPEARANCE,URINE CLOUDY (CLEAR); GLUCOSE, URINE (UA) NEGATIVE (NEGATIVE); KETONES,URINE NEGATIVE (NEGATIVE); LEUKOCYTE ESTERASE ,URINE MODERATE (NEGATIVE); OCCULT BLOOD,URINE MODERATE (NEGATIVE); PH,URINE 5.5 (5.0-8.0)
[2017-01-18] MEDS ORDERED: LORazepam 1 MG TABLET PO ONE (09:30)
[2017-01-18 09:31] LABS: WBC,URINE 26-50 /HPF (0-5)
[2017-01-18 09:32] LABS: SQUAMOUS EPITHELIAL CELL,UR Moderate /LPF (None Seen)
[2017-01-18 09:34] LABS: PROTEIN,URINE SEE CONFIRM (NEGATIVE)
[2017-01-18] MEDS ORDERED: CefTRIAXone SODIUM 1 GM/VIAL IM ONE (10:00)
[2017-01-18] MEDS ORDERED: LIDOCAINE HCL/PF 1% 2 ML VIAL IM ONE (10:00)
[2017-01-18 10:50] VITALS: BP 175/97
== END 2017-01-18 11:07 | disposition home or self-care (01) ==
LOC: EMS 08:15
DX: N39.0 Urinary tract infection, site not specified (principal); I10 Essential (primary) hypertension; E78.00 Pure hypercholesterolemia, unspecified; F11.90 Opioid use, unspecified, uncomplicated; F19.90 Other psychoactive substance use, unspecified, uncomplicated; F17.210 Nicotine dependence, cigarettes, uncomplicated; Z88.0 Allergy status to penicillin; Z88.8 Allergy status to other drugs, medicaments and biological substances
CPT/HCPCS: 81001; 87086; 96372; 99284; J0696; J3490

== ENCOUNTER 2017-01-19 08:09 | Emergency (ER) | payer MEDICAID ==
[~2017-01-19] VITALS: Ht 167.6 cm; Wt 63.0 kg
[~2017-01-19 08:09] MED LIST changes: +FERR-89 PO; -FERS325 PO
[2017-01-19] MEDS ORDERED: CloNIDine HCL 0.2 MG TABLET PO ONE (08:45)
[2017-01-19] MEDS ORDERED: LORazepam 2 MG TABLET PO ONE (08:45)
[2017-01-19 09:44] LABS: APPEARANCE,URINE TURBID (CLEAR); GLUCOSE, URINE (UA) NEGATIVE (NEGATIVE); KETONES,URINE TRACE mg/dL (NEGATIVE); LEUKOCYTE ESTERASE ,URINE MODERATE (NEGATIVE); OCCULT BLOOD,URINE LARGE (NEGATIVE); PROTEIN,URINE SEE CONFIRM (NEGATIVE)
[2017-01-19 09:46] LABS: ADD UA MICROSCOPIC YES
[2017-01-19 09:49] LABS: SULFOSALICYLIC ACID,URINE 4+ (Negative)
[2017-01-19 09:52] LABS: RBC,URINE Full Field /HPF (0-2); SQUAMOUS EPITHELIAL CELL,UR Few /LPF (None Seen)
[2017-01-19 10:03] LABS: HEMATOCRIT 33.8 % (36-46); HEMOGLOBIN 10.4 g/dL (12.0-16.0); MEAN CORPUSCULAR HEMOGLOBIN 21.7 pg (26.0-34.0); MEAN CORPUSCULAR HGB CONC 30.7 G/dL (31.0-37.0); MEAN CORPUSCULAR VOLUME 71 fL (80-100); PLATELET COUNT (AUTO) 136 K/uL (150-450); RED BLOOD CELL COUNT(AUTO) 4.78 MIL/uL (4.00-5.20); RED CELL DISTRIBUTION WIDTH 21.4 % (11.5-14.5)
[2017-01-19 10:08] LABS: WHITE BLOOD COUNT (AUTO) 3.3 K/uL (4.5-11.0)
[2017-01-19 10:13] LABS: ANION GAP 13 mmol/L (8-16); CALCIUM, TOTAL 9.1 mg/dL (8.8-10.5); CARBON DIOXIDE 26 mmol/L (22-29); CHLORIDE 105 mmol/L (98-107); CREATININE 1.09 mg/dL (0.60-1.30); GLOMERULAR FILTR. RATE CALC > 60 mL/min (>60); POTASSIUM 3.6 mmol/L (3.5-5.1); SODIUM SERUM 144 mmol/L (136-145); UREA NITROGEN, BLOOD 20 mg/dL (7-18)
[2017-01-19 10:16] LABS: PROTHROMBIN TIME 10.8 SEC (9.4-11.6)
[2017-01-19 10:21] LABS: LYMPHOCYTES % (MANUAL) 25 % (22-44); TOTAL CELLS COUNTED 100
[2017-01-19 10:33] LABS: B-TYPE NATRIURETIC PEPTIDE 76 pg/mL (0-100)
[2017-01-19 10:38] LABS: ALANINE AMINOTRANSFERASE 15 U/L (12-78); ALBUMIN 3.7 g/dL (3.4-5.0); ASPARTATE AMINOTRANSFERASE 17 U/L (15-37); BILIRUBIN,TOTAL 0.2 mg/dL (0.1-1.0); CREATINE KINASE MB 1.5 ng/mL (0-5); CREATINE KINASE, TOTAL 227 U/L (26-192)
[2017-01-19] MEDS ORDERED: BARIUM SULFATE 0.1% SUSPENSION 450 ML BOTTLE PO ONE (10:45)
[2017-01-19] MEDS ORDERED: HYDROCODONE/ACETAMINOPHEN 5-325 MG TABLET PO ONE (12:00)
[2017-01-19] MEDS ORDERED: SODIUM CHLORIDE 0.9% 100 ML ONE (12:01)
[2017-01-19] MEDS ORDERED: IOVERSOL 350 MG/ML 100 ML VIAL ONE (12:01)
[2017-01-19 13:04] VITALS: BP 127/87
[2017-01-19] MEDS ORDERED: LEVOFLOXACIN 500 MG/D5% WATER 100 ML IV ONE (14:15)
[2017-03-19] MEDS ORDERED: DIVA500T35 PO (13:59)
[2017-03-19] MEDS ORDERED: QUET25TA PO (13:59)
[2017-03-19] MEDS ORDERED: CLON.1 PO (14:00)
[2017-03-19] MEDS ORDERED: CIP250 PO (14:01)
[2017-03-19] MEDS ORDERED: AMLO-511 PO (14:02)
[2017-03-19] MEDS ORDERED: PROP10 PO (14:02)
[2017-03-19] MEDS ORDERED: FERR-89 PO (14:02)
== END 2017-01-19 15:12 | disposition home or self-care (01) ==
LOC: EMS 08:10
DX: N39.0 Urinary tract infection, site not specified (principal); F41.9 Anxiety disorder, unspecified; I10 Essential (primary) hypertension; E78.00 Pure hypercholesterolemia, unspecified; F17.210 Nicotine dependence, cigarettes, uncomplicated; F11.90 Opioid use, unspecified, uncomplicated; F13.20 Sedative, hypnotic or anxiolytic dependence, uncomplicated; Z88.0 Allergy status to penicillin; Z88.5 Allergy status to narcotic agent
CPT/HCPCS: 36415; 51702; 71010; 74177; 80053; 81001; 81002; 82550; 82553; 83690; 83880; 84484; 85025; 85610; 85730; 86850; 86900; 86901; 87086; 93005; 96365; 99285; J1956; J7050; Q9967; Z7610

== ENCOUNTER 2017-01-24 12:56 | Emergency (ER) | payer MEDICAID ==
[~2017-01-24] VITALS: Ht 167.6 cm; Wt 63.6 kg
[~2017-01-24 12:56] MED LIST changes: -FERR-89 PO; +FERS325 PO
[2017-01-24 13:47] LABS: HEMATOCRIT 35.6 % (36-46); HEMOGLOBIN 10.9 g/dL (12.0-16.0); MEAN CORPUSCULAR HGB CONC 30.7 G/dL (31.0-37.0); MEAN CORPUSCULAR VOLUME 72 fL (80-100); PLATELET COUNT (AUTO) 223 K/uL (150-450); RED BLOOD CELL COUNT(AUTO) 4.96 MIL/uL (4.00-5.20); WHITE BLOOD COUNT (AUTO) 3.9 K/uL (4.5-11.0)
[2017-01-24 13:53] LABS: ANION GAP 8 mmol/L (8-16); CALCIUM, TOTAL 8.7 mg/dL (8.8-10.5); CARBON DIOXIDE 31 mmol/L (22-29); CHLORIDE 110 mmol/L (98-107); CREATININE 1.01 mg/dL (0.60-1.30); GLOMERULAR FILTR. RATE CALC > 60 mL/min (>60); POTASSIUM 3.6 mmol/L (3.5-5.1); SODIUM SERUM 149 mmol/L (136-145); UREA NITROGEN, BLOOD 17 mg/dL (7-18)
[2017-01-24 14:01] LABS: ALANINE AMINOTRANSFERASE 10 U/L (12-78); ALBUMIN 3.4 g/dL (3.4-5.0); ASPARTATE AMINOTRANSFERASE 12 U/L (15-37); BILIRUBIN,TOTAL 0.2 mg/dL (0.1-1.0); TOTAL PROTEIN, SERUM 7.5 g/dL (6.4-8.2); VALPROIC ACID 53 mcg/mL (50-100)
[2017-01-24 14:17] LABS: BAND NEUTROPHILS % (MANUAL) 1 % (1-5); LYMPHOCYTES % (MANUAL) 24 % (22-44); TOTAL CELLS COUNTED 100
[2017-01-24 14:18] LABS: RBC MORPHOLOGY COMMENT ABNORMAL R
[2017-01-24] MEDS ORDERED: LORazepam 2 MG TABLET PO ONE (15:00)
[2017-01-24 15:30] VITALS: BP 144/88
[2017-01-25] MEDS ORDERED: DOXY100C PO (16:12)
[2017-01-25] MEDS ORDERED: LEVO500 PO (16:12)
[2017-01-25] MEDS ORDERED: VIST50 PO (16:12)
[2017-01-25] MEDS ORDERED: MACR100 PO (16:12)
== END 2017-01-24 16:34 | disposition home or self-care (01) ==
LOC: EMS 12:57
DX: F41.9 Anxiety disorder, unspecified (principal); I10 Essential (primary) hypertension; E78.00 Pure hypercholesterolemia, unspecified; F17.210 Nicotine dependence, cigarettes, uncomplicated; F11.90 Opioid use, unspecified, uncomplicated; Z88.0 Allergy status to penicillin; Z88.8 Allergy status to other drugs, medicaments and biological substances
CPT/HCPCS: 36415; 80053; 80164; 80307; 85025; 99284; G0480

== ENCOUNTER 2017-01-25 16:03 | Emergency (ER) | payer MEDICAID ==
[~2017-01-25] VITALS: Ht 167.6 cm; Wt 63.0 kg
[~2017-01-25 16:03] MED LIST changes: +FERR-89 PO; -FERS325 PO
[2017-01-25] MEDS ORDERED: MACR100 PO (16:12)
[2017-01-25] MEDS ORDERED: DOXY100C PO (16:12)
[2017-01-25] MEDS ORDERED: VIST50 PO (16:12)
[2017-01-25] MEDS ORDERED: LEVO500 PO (16:12)
[2017-01-25] MEDS ORDERED: LORazepam 2 MG TABLET PO ONE (18:30)
[2017-01-25 18:38] LABS: APPEARANCE,URINE CLOUDY (CLEAR); GLUCOSE, URINE (UA) NEGATIVE (NEGATIVE); KETONES,URINE NEGATIVE (NEGATIVE); LEUKOCYTE ESTERASE ,URINE MODERATE (NEGATIVE); OCCULT BLOOD,URINE SMALL (NEGATIVE); PROTEIN,URINE POS 1+ (NEGATIVE)
[2017-01-25 18:45] LABS: ADD UA MICROSCOPIC YES
[2017-01-25 18:48] LABS: RBC,URINE 0-2 /HPF (0-2); SQUAMOUS EPITHELIAL CELL,UR Rare /LPF (None Seen)
[2017-01-25 19:23] VITALS: BP 117/74
[2017-03-19] MEDS ORDERED: QUET25TA PO (13:59)
[2017-03-19] MEDS ORDERED: DIVA500T35 PO (13:59)
[2017-03-19] MEDS ORDERED: CLON.1 PO (14:00)
[2017-03-19] MEDS ORDERED: CIP250 PO (14:01)
[2017-03-19] MEDS ORDERED: AMLO-511 PO (14:02)
[2017-03-19] MEDS ORDERED: PROP10 PO (14:02)
[2017-03-19] MEDS ORDERED: FERR-89 PO (14:02)
== END 2017-01-25 19:24 | disposition home or self-care (01) ==
LOC: EMS 16:04
DX: K59.00 Constipation, unspecified (principal); F41.9 Anxiety disorder, unspecified; I10 Essential (primary) hypertension; E78.00 Pure hypercholesterolemia, unspecified; F17.210 Nicotine dependence, cigarettes, uncomplicated; Z88.0 Allergy status to penicillin; Z88.8 Allergy status to other drugs, medicaments and biological substances
CPT/HCPCS: 87086; 99284

== ENCOUNTER 2017-01-28 10:37 | Emergency (ER) | payer MEDICAID ==
[~2017-01-28] VITALS: Ht 167.6 cm; Wt 63.6 kg
[~2017-01-28 10:37] MED LIST changes: -CEFU250T87 PO; +DOXY100C PO; -FERR-89 PO; +FERS325 PO; +LEVO500 PO; +MACR100 PO; -OLAN15TA18 PO; -OXCA300T PO; -PHEN-853 PO; -SIMV10TA6 PO; +VIST50 PO
[2017-01-28 11:12] LABS: APPEARANCE,URINE CLOUDY (CLEAR); GLUCOSE, URINE (UA) NEGATIVE (NEGATIVE); KETONES,URINE NEGATIVE (NEGATIVE); LEUKOCYTE ESTERASE ,URINE MODERATE (NEGATIVE); OCCULT BLOOD,URINE LARGE (NEGATIVE); PH,URINE 6.5 (5.0-8.0); PROTEIN,URINE SEE CONFIRM (NEGATIVE)
[2017-01-28 11:19] LABS: HEMATOCRIT 34.3 % (36-46); HEMOGLOBIN 10.7 g/dL (12.0-16.0); MEAN CORPUSCULAR HEMOGLOBIN 22.6 pg (26.0-34.0); MEAN CORPUSCULAR HGB CONC 31.2 G/dL (31.0-37.0); MEAN CORPUSCULAR VOLUME 72 fL (80-100); PLATELET COUNT (AUTO) 167 K/uL (150-450); RED BLOOD CELL COUNT(AUTO) 4.74 MIL/uL (4.00-5.20); RED CELL DISTRIBUTION WIDTH 21.7 % (11.5-14.5)
[2017-01-28 11:19] LABS: ADD UA MICROSCOPIC YES
[2017-01-28 11:22] LABS: ANION GAP 9 mmol/L (8-16); CALCIUM, TOTAL 8.9 mg/dL (8.8-10.5); CARBON DIOXIDE 30 mmol/L (22-29); CHLORIDE 108 mmol/L (98-107); GLOMERULAR FILTR. RATE CALC > 60 mL/min (>60); POTASSIUM 3.8 mmol/L (3.5-5.1); SODIUM SERUM 147 mmol/L (136-145); UREA NITROGEN, BLOOD 19 mg/dL (7-18)
[2017-01-28 11:27] LABS: SULFOSALICYLIC ACID,URINE 3+ (Negative)
[2017-01-28 11:28] LABS: RBC,URINE 26-50 /HPF (0-2); SQUAMOUS EPITHELIAL CELL,UR Few /LPF (None Seen)
[2017-01-28 11:29] LABS: ALANINE AMINOTRANSFERASE 15 U/L (12-78); ALBUMIN 3.4 g/dL (3.4-5.0); ASPARTATE AMINOTRANSFERASE 11 U/L (15-37); BILIRUBIN,TOTAL 0.2 mg/dL (0.1-1.0); TOTAL PROTEIN, SERUM 7.8 g/dL (6.4-8.2); VALPROIC ACID 78 mcg/mL (50-100)
[2017-01-28 11:41] LABS: WHITE BLOOD COUNT (AUTO) 3.3 K/uL (4.5-11.0)
[2017-01-28 11:54] LABS: TOTAL CELLS COUNTED 100
[2017-01-28 11:55] LABS: EOSINOPHILS % (MANUAL) 1 % (1-6); LYMPHOCYTES % (MANUAL) 36 % (22-44); RBC MORPHOLOGY COMMENT ABNORMAL RBC MORPH
[2017-01-28] MEDS ORDERED: NITROFURANTOIN/NITROFURAN MAC 100 MG CAPSULE [MACROBID] PO ONE (12:00)
[2017-01-28] MEDS ORDERED: ONDANSETRON HCL 4 MG TABLET PO ONE (12:00)
[2017-01-28 12:26] VITALS: BP 155/75
== END 2017-01-28 12:41 | disposition home or self-care (01) ==
LOC: EMS 10:44
DX: F41.9 Anxiety disorder, unspecified (principal); N39.0 Urinary tract infection, site not specified; F17.210 Nicotine dependence, cigarettes, uncomplicated; E78.00 Pure hypercholesterolemia, unspecified; I10 Essential (primary) hypertension; F11.90 Opioid use, unspecified, uncomplicated; F13.90 Sedative, hypnotic, or anxiolytic use, unspecified, uncomplicated; Z88.0 Allergy status to penicillin; Z88.5 Allergy status to narcotic agent
CPT/HCPCS: 36415; 80053; 80164; 80307; 81001; 81002; 85025; 87086; 99284; 99406; G0480; Q0162

== ENCOUNTER 2017-02-12 11:34 | Emergency (ER) | payer MEDICAID ==
[~2017-02-12] VITALS: Ht 167.6 cm; Wt 63.6 kg
[~2017-02-12 11:34] MED LIST changes: +FERR-89 PO; -FERS325 PO
[2017-02-12] MEDS ORDERED: HydrOXYzine HCL 25 MG TABLET PO ONE (14:00)
[2017-02-12] MEDS ORDERED: ZINC OXIDE PASTE 60 GM TUBE TP ONE (14:00)
[2017-02-12 14:58] VITALS: BP 119/63
[2017-03-19] MEDS ORDERED: QUET25TA PO (13:59)
[2017-03-19] MEDS ORDERED: DIVA500T35 PO (13:59)
[2017-03-19] MEDS ORDERED: CLON.1 PO (14:00)
[2017-03-19] MEDS ORDERED: CIP250 PO (14:01)
[2017-03-19] MEDS ORDERED: PROP10 PO (14:02)
[2017-03-19] MEDS ORDERED: AMLO-511 PO (14:02)
[2017-03-19] MEDS ORDERED: FERR-89 PO (14:02)
== END 2017-02-12 15:00 | disposition home or self-care (01) ==
LOC: EEVIPCON 11:36 → EMS 11:36
DX: S30.23XA Contusion of vagina and vulva, initial encounter (principal); F41.9 Anxiety disorder, unspecified; I10 Essential (primary) hypertension; E78.00 Pure hypercholesterolemia, unspecified; F11.90 Opioid use, unspecified, uncomplicated; F19.90 Other psychoactive substance use, unspecified, uncomplicated; F17.210 Nicotine dependence, cigarettes, uncomplicated; Z88.0 Allergy status to penicillin; Z88.8 Allergy status to other drugs, medicaments and biological substances; W19.XXXA Unspecified fall, initial encounter; Y93.89 Activity, other specified; Y92.89 Other specified places as the place of occurrence of the external cause; Y99.8 Other external cause status
CPT/HCPCS: 99284

== ENCOUNTER 2017-02-13 13:11 | Emergency (ER) | payer MEDICAID ==
[~2017-02-13] VITALS: Ht 167.6 cm; Wt 54.5 kg
[2017-02-13] MEDS: LORazepam 2 MG TABLET PO ONE (13:51)
[2017-02-13] MEDS: IBUPROFEN 600 MG TABLET PO ONE (13:51)
[2017-02-13 14:04] LABS: BASOPHILS % (AUTO) 0.1 % (0.0-2.0); EOSINOPHILS % (AUTO) 0.5 % (1.0-6.0); HEMATOCRIT 34.8 % (36-46); HEMOGLOBIN 10.7 g/dL (12.0-16.0); LYMPHOCYTES # (AUTO) 1.2 K/uL (1.0-4.8); LYMPHOCYTES % (AUTO) 30.5 % (22.0-44.0); MEAN CORPUSCULAR HEMOGLOBIN 22.2 pg (26.0-34.0); MEAN CORPUSCULAR HGB CONC 30.8 G/dL (31.0-37.0); MEAN CORPUSCULAR VOLUME 72 fL (80-100); MONOCYTES # (AUTO) 0.2 K/uL (0.1-1.0); MONOCYTES % (AUTO) 5.3 % (2.0-9.0); NEUTROPHILS # (AUTO) 2.5 K/uL (1.8-7.7); NEUTROPHILS % (AUTO) 63.6 % (40.0-70.0); RED BLOOD CELL COUNT(AUTO) 4.82 MIL/uL (4.00-5.20); RED CELL DISTRIBUTION WIDTH 19.3 % (11.5-14.5); WHITE BLOOD COUNT (AUTO) 3.9 K/uL (4.5-11.0)
[2017-02-13 14:12] LABS: CALCIUM, TOTAL 9.2 mg/dL (8.8-10.5); CREATININE 1.35 mg/dL (0.60-1.30); POTASSIUM 4.1 mmol/L (3.5-5.1)
[2017-02-13 14:19] LABS: ALBUMIN 3.4 g/dL (3.4-5.0); BILIRUBIN,TOTAL 0.2 mg/dL (0.1-1.0); TOTAL PROTEIN, SERUM 7.7 g/dL (6.4-8.2)
[2017-02-13 14:24] LABS: PLATELET COUNT (AUTO) 106 K/uL (150-450); RBC MORPHOLOGY COMMENT ABNORMAL RBC MORPH
[2017-02-13 16:13] LABS: APPEARANCE,URINE TURBID (CLEAR); GLUCOSE, URINE (UA) NEGATIVE (NEGATIVE); KETONES,URINE NEGATIVE (NEGATIVE); LEUKOCYTE ESTERASE ,URINE LARGE (NEGATIVE); OCCULT BLOOD,URINE LARGE (NEGATIVE); PROTEIN,URINE SEE CONFIRM (NEGATIVE)
[2017-02-13 16:21] LABS: ADD UA MICROSCOPIC YES; RBC,URINE 26-50 /HPF (0-2); SQUAMOUS EPITHELIAL CELL,UR Moderate /LPF (None Seen); SULFOSALICYLIC ACID,URINE 2+ (Negative); WBC,URINE >100 /HPF (0-5)
[2017-02-13] MEDS: CefTRIAXone SODIUM 1 GM/VIAL IM ONE (16:39)
[2017-02-13] MEDS: LIDOCAINE HCL/PF 1% 2 ML VIAL IM ONE (16:39)
[2017-02-13 17:00] VITALS: BP 136/82
== END 2017-02-13 17:12 | disposition home or self-care (01) ==
LOC: EMS 13:13
DX: N39.0 Urinary tract infection, site not specified (principal); F41.9 Anxiety disorder, unspecified; R07.89 Other chest pain; I10 Essential (primary) hypertension; E78.00 Pure hypercholesterolemia, unspecified; F17.210 Nicotine dependence, cigarettes, uncomplicated; F11.90 Opioid use, unspecified, uncomplicated; Z88.0 Allergy status to penicillin; Z88.8 Allergy status to other drugs, medicaments and biological substances
CPT/HCPCS: 36415; 71010; 80053; 81001; 81002; 83880; 84484; 85025; 87077; 87086; 93005; 96372; 99285; J0696; J3490

== ENCOUNTER 2017-02-17 10:24 | Emergency (ER) | payer MEDICAID ==
[~2017-02-17] VITALS: Ht 167.6 cm; Wt 63.6 kg
[~2017-02-17 10:24] MED LIST changes: -DOXY100C PO; -LEVO500 PO; -MACR100 PO
[2017-02-17] MEDS ORDERED: PHEN-857 PO (10:49)
[2017-02-17 11:48] LABS: BASOPHILS % (AUTO) 0.2 % (0.0-2.0); EOSINOPHILS % (AUTO) 0.3 % (1.0-6.0); HEMATOCRIT 37.7 % (36-46); HEMOGLOBIN 11.4 g/dL (12.0-16.0); LYMPHOCYTES # (AUTO) 1.4 K/uL (1.0-4.8); LYMPHOCYTES % (AUTO) 29.7 % (22.0-44.0); MEAN CORPUSCULAR HEMOGLOBIN 21.8 pg (26.0-34.0); MEAN CORPUSCULAR HGB CONC 30.3 G/dL (31.0-37.0); MEAN CORPUSCULAR VOLUME 72 fL (80-100); MONOCYTES # (AUTO) 0.2 K/uL (0.1-1.0); MONOCYTES % (AUTO) 5.4 % (2.0-9.0); NEUTROPHILS % (AUTO) 64.4 % (40.0-70.0); PLATELET COUNT (AUTO) 130 K/uL (150-450); RED BLOOD CELL COUNT(AUTO) 5.24 MIL/uL (4.00-5.20); RED CELL DISTRIBUTION WIDTH 18.8 % (11.5-14.5); WHITE BLOOD COUNT (AUTO) 4.6 K/uL (4.5-11.0)
[2017-02-17 12:41] LABS: RBC MORPHOLOGY COMMENT ABNORMAL RBC MORPH
[2017-02-17 12:58] VITALS: BP 175/85
[2017-02-17] MEDS ORDERED: OxyCODONE HCL/ACETAMINOPHEN 5-325 MG TABLET PO ONE (13:00)
== END 2017-02-17 13:45 | disposition home or self-care (01) ==
LOC: EMS 10:26
DX: R30.0 Dysuria (principal); R31.9 Hematuria, unspecified; I10 Essential (primary) hypertension; E78.00 Pure hypercholesterolemia, unspecified; F11.90 Opioid use, unspecified, uncomplicated; F19.90 Other psychoactive substance use, unspecified, uncomplicated; F17.210 Nicotine dependence, cigarettes, uncomplicated; Z88.0 Allergy status to penicillin; Z88.8 Allergy status to other drugs, medicaments and biological substances
CPT/HCPCS: 99283

== ENCOUNTER 2017-02-17 15:31 | Emergency (ER) | payer MEDICAID ==
[~2017-02-17] VITALS: Ht 167.6 cm; Wt 63.0 kg
[~2017-02-17 15:31] MED LIST changes: +PHEN-857 PO
[2017-02-17 16:57] VITALS: BP 136/70
[2017-02-17 18:29] LABS: APPEARANCE,URINE CLOUDY (CLEAR); GLUCOSE, URINE (UA) NEGATIVE (NEGATIVE); KETONES,URINE 15 mg/dL (NEGATIVE); LEUKOCYTE ESTERASE ,URINE LARGE (NEGATIVE); OCCULT BLOOD,URINE LARGE (NEGATIVE); PROTEIN,URINE SEE CONFIRM (NEGATIVE)
[2017-02-17 19:11] LABS: ADD UA MICROSCOPIC YES
[2017-02-17 19:12] LABS: RBC,URINE 26-50 /HPF (0-2); SULFOSALICYLIC ACID,URINE 4+ (Negative); WBC,URINE 26-50 /HPF (0-5)
[2017-02-17 19:13] LABS: SQUAMOUS EPITHELIAL CELL,UR Moderate /LPF (None Seen)
== END 2017-02-17 18:18 | disposition left against medical advice (07) ==
LOC: EMS 15:34
DX: N39.0 Urinary tract infection, site not specified (principal); I10 Essential (primary) hypertension; E78.00 Pure hypercholesterolemia, unspecified; F11.90 Opioid use, unspecified, uncomplicated; F19.90 Other psychoactive substance use, unspecified, uncomplicated; F17.210 Nicotine dependence, cigarettes, uncomplicated; Z88.0 Allergy status to penicillin; Z88.8 Allergy status to other drugs, medicaments and biological substances
CPT/HCPCS: 87086; 99284

== ENCOUNTER 2017-02-19 07:28 | Inpatient (IN) | payer MEDICAID ==
[~2017-02-19] VITALS: Ht 167.6 cm; Wt 56.3 kg
[2017-02-19 08:14] LABS: BASOPHILS # (AUTO) 0.04 K/uL (0.00-0.20); BASOPHILS % (AUTO) 0.9 % (0.0-2.0); EOSINOPHILS # (AUTO) 0.03 K/uL (0.00-0.70); EOSINOPHILS % (AUTO) 0.72 % (1.0-6.0); HEMATOCRIT 38.6 % (36-46); HEMOGLOBIN 11.8 g/dL (12.0-16.0); LYMPHOCYTES # (AUTO) 1.4 K/uL (1.0-4.8); LYMPHOCYTES % (AUTO) 30.6 % (22.0-44.0); MEAN CORPUSCULAR HEMOGLOBIN 22.4 pg (26.0-34.0); MEAN CORPUSCULAR HGB CONC 30.6 G/dL (31.0-37.0); MEAN CORPUSCULAR VOLUME 73 fL (80-100); MONOCYTES # (AUTO) 0.3 K/uL (0.1-1.0); MONOCYTES % (AUTO) 5.6 % (2.0-9.0); NEUTROPHILS # (AUTO) 2.8 K/uL (1.8-7.7); NEUTROPHILS % (AUTO) 62.3 % (40.0-70.0); PLATELET COUNT (AUTO) 132 K/uL (150-450); RED BLOOD CELL COUNT(AUTO) 5.27 MIL/uL (4.00-5.20); RED CELL DISTRIBUTION WIDTH 18.8 % (11.5-14.5); WHITE BLOOD COUNT (AUTO) 4.4 K/uL (4.5-11.0)
[2017-02-19] MEDS ORDERED: LORazepam 2 MG/ML VIAL IM ONE (08:15)
[2017-02-19 08:18] LABS: RBC MORPHOLOGY COMMENT ABNORMAL RBC MORPH
[2017-02-19 08:24] LABS: ANION GAP 12 mmol/L (8-16); CALCIUM, TOTAL 9.6 mg/dL (8.8-10.5); CARBON DIOXIDE 28 mmol/L (22-29); CHLORIDE 106 mmol/L (98-107); GLOMERULAR FILTR. RATE CALC 46 mL/min (>60); POTASSIUM 3.1 mmol/L (3.5-5.1); SODIUM SERUM 146 mmol/L (136-145); UREA NITROGEN, BLOOD 18 mg/dL (7-18)
[2017-02-19 08:29] LABS: ALANINE AMINOTRANSFERASE 19 U/L (12-78); ALBUMIN 4.1 g/dL (3.4-5.0); ASPARTATE AMINOTRANSFERASE 16 U/L (15-37); BILIRUBIN,TOTAL 0.3 mg/dL (0.1-1.0); TOTAL PROTEIN, SERUM 8.5 g/dL (6.4-8.2)
[2017-02-19 11:34] LABS: APPEARANCE,URINE CLOUDY (CLEAR); GLUCOSE, URINE (UA) NEGATIVE (NEGATIVE); KETONES,URINE NEGATIVE (NEGATIVE); LEUKOCYTE ESTERASE ,URINE MODERATE (NEGATIVE); OCCULT BLOOD,URINE LARGE (NEGATIVE); PH,URINE 5.5 (5.0-8.0); PROTEIN,URINE POS 1+ (NEGATIVE)
[2017-02-19 11:39] LABS: SQUAMOUS EPITHELIAL CELL,UR Moderate /LPF (None Seen)
[2017-02-19] MEDS: LORazepam 2 MG TABLET PO PRN ×2 (11:41→18:06)
[2017-02-19] MEDS: HALOPERIDOL 5 MG TABLET PO PRN (11:41)
[2017-02-19 16:35] VITALS: BP 121/84
[2017-02-19] MEDS ORDERED: POTASSIUM CHLORIDE 20 MEQ ER TABLET PO ONE (19:00)
[2017-02-19] MEDS: CIPROFLOXACIN HCL 500 MG TABLET PO SCH (20:56)
[2017-02-20 02:55] VITALS: BP 125/80
[2017-02-20] MEDS: LORazepam 2 MG TABLET PO PRN ×3 (02:57→14:50)
[2017-02-20] MEDS: FERROUS SULFATE 325 MG EC TABLET PO SCH ×2 (06:52→18:46)
[2017-02-20 07:43] LABS: CHOL/HDL RATIO 4.3 (3.9-5.7)
[2017-02-20 07:48] LABS: POTASSIUM 3.5 mmol/L (3.5-5.1)
[2017-02-20] MEDS: ONDANSETRON HCL 4 MG TABLET PO PRN (07:52)
[2017-02-20] MEDS: HALOPERIDOL 5 MG TABLET PO PRN (07:52)
[2017-02-20 08:01] VITALS: BP 144/100
[2017-02-20] MEDS: GABAPENTIN 400 MG CAPSULE PO SCH ×3 (09:18→16:45)
[2017-02-20] MEDS: CIPROFLOXACIN HCL 500 MG TABLET PO SCH ×2 (09:18→16:45)
[2017-02-20] MEDS: LOSARTAN POTASSIUM 50 MG TABLET PO SCH (09:18)
[2017-02-20] MEDS: ESCITALOPRAM OXALATE 20 MG TABLET PO SCH (09:18)
[2017-02-20] MEDS: PHENAZOPYRIDINE HCL 200 MG TABLET PO SCH ×3 (09:18→16:45)
[2017-02-20] MEDS: CloNIDine HCL 0.1 MG TABLET PO SCH ×2 (09:19→16:45)
[2017-02-20 19:01] VITALS: BP 115/76
[2017-02-20] MEDS: ZOLPIDEM TARTRATE 10 MG TABLET PO PRN (23:58)
[2017-02-21 00:55] VITALS: BP 129/65
[2017-02-21] MEDS: LORazepam 1 MG TABLET PO PRN ×3 (03:20→12:13)
[2017-02-21] MEDS: FERROUS SULFATE 325 MG EC TABLET PO SCH ×2 (06:40→16:02)
[2017-02-21 07:40] LABS: HEMOGLOBIN A1C 5.6 % (4.5-6.2)
[2017-02-21] MEDS: ONDANSETRON HCL 4 MG TABLET PO PRN (07:52)
[2017-02-21] MEDS: HALOPERIDOL 5 MG TABLET PO PRN (07:52)
[2017-02-21 07:56] LABS: CHOL/HDL RATIO 5.3 (3.9-5.7)
[2017-02-21 08:03] VITALS: BP 155/90
[2017-02-21] MEDS: LOSARTAN POTASSIUM 50 MG TABLET PO SCH (08:44)
[2017-02-21] MEDS: CIPROFLOXACIN HCL 250 MG TABLET PO SCH ×2 (08:45→16:04)
[2017-02-21] MEDS: CloNIDine HCL 0.1 MG TABLET PO SCH ×2 (08:45→16:02)
[2017-02-21] MEDS: ESCITALOPRAM OXALATE 20 MG TABLET PO SCH (08:45)
[2017-02-21] MEDS: GABAPENTIN 400 MG CAPSULE PO SCH ×3 (08:45→16:02)
[2017-02-21] MEDS: PHENAZOPYRIDINE HCL 200 MG TABLET PO SCH ×3 (08:45→16:02)
[2017-02-21 09:05] LABS: THYROID STIMULATING HORMONE 0.9 uIU/mL (0.36-3.74)
[2017-02-21 17:04] VITALS: BP 114/75
[2017-02-21] MEDS: ACETAMINOPHEN 325 MG TABLET PO PRN (19:38)
[2017-02-22] MEDS: IBUPROFEN 400 MG TABLET PO PRN ×2 (00:17→11:29)
[2017-02-22 00:33] VITALS: BP 107/59
[2017-02-22] MEDS: LORazepam 1 MG TABLET PO PRN ×5 (00:51→17:42)
[2017-02-22] MEDS: MAG HYDROX/AL HYDROX/SIMETH 30 ML SUSP UDCUP PO PRN (03:58)
[2017-02-22 04:55] VITALS: BP 148/90
[2017-02-22] MEDS: ONDANSETRON HCL 4 MG TABLET PO PRN (07:45)
[2017-02-22] MEDS: FERROUS SULFATE 325 MG EC TABLET PO SCH ×2 (07:45→16:17)
[2017-02-22] MEDS: HALOPERIDOL 5 MG TABLET PO PRN ×2 (07:47→11:49)
[2017-02-22 08:00] VITALS: BP 151/73
[2017-02-22 08:04] VITALS: BP 151/73
[2017-02-22] MEDS: LOSARTAN POTASSIUM 50 MG TABLET PO SCH (08:16)
[2017-02-22] MEDS: GABAPENTIN 400 MG CAPSULE PO SCH ×3 (08:16→16:17)
[2017-02-22] MEDS: CIPROFLOXACIN HCL 250 MG TABLET PO SCH ×2 (08:16→16:17)
[2017-02-22] MEDS: ESCITALOPRAM OXALATE 20 MG TABLET PO SCH (08:16)
[2017-02-22] MEDS: PHENAZOPYRIDINE HCL 200 MG TABLET PO SCH ×3 (08:16→16:17)
[2017-02-22] MEDS: CloNIDine HCL 0.1 MG TABLET PO SCH ×2 (08:16→16:17)
[2017-02-22] MEDS: ACETAMINOPHEN 325 MG TABLET PO PRN (11:29)
[2017-02-22 18:47] VITALS: BP 126/75
[2017-02-23] MEDS: MAG HYDROX/AL HYDROX/SIMETH 30 ML SUSP UDCUP PO PRN (03:18)
[2017-02-23 04:30] VITALS: BP 135/76
[2017-02-23] MEDS: IBUPROFEN 400 MG TABLET PO PRN ×3 (04:32→23:57)
[2017-02-23] MEDS: LORazepam 1 MG TABLET PO PRN ×4 (06:35→16:14)
[2017-02-23] MEDS: FERROUS SULFATE 325 MG EC TABLET PO SCH ×2 (06:37→16:31)
[2017-02-23] MEDS: HALOPERIDOL 5 MG TABLET PO PRN ×3 (07:42→16:13)
[2017-02-23] MEDS: ONDANSETRON HCL 4 MG TABLET PO PRN (07:42)
[2017-02-23 08:05] VITALS: BP 133/84
[2017-02-23] MEDS: ESCITALOPRAM OXALATE 20 MG TABLET PO SCH (08:09)
[2017-02-23] MEDS: ACETAMINOPHEN 325 MG TABLET PO PRN (08:09)
[2017-02-23] MEDS: CloNIDine HCL 0.1 MG TABLET PO SCH ×2 (08:09→16:14)
[2017-02-23] MEDS: GABAPENTIN 400 MG CAPSULE PO SCH ×3 (08:09→16:14)
[2017-02-23] MEDS: LOSARTAN POTASSIUM 50 MG TABLET PO SCH (08:09)
[2017-02-23] MEDS: CIPROFLOXACIN HCL 250 MG TABLET PO SCH ×2 (08:09→16:14)
[2017-02-23] MEDS: PHENAZOPYRIDINE HCL 200 MG TABLET PO SCH ×3 (08:09→16:14)
[2017-02-23 11:14] LABS: APPEARANCE,URINE TURBID (CLEAR); GLUCOSE, URINE (UA) NEGATIVE (NEGATIVE); KETONES,URINE TRACE mg/dL (NEGATIVE); LEUKOCYTE ESTERASE ,URINE LARGE (NEGATIVE); OCCULT BLOOD,URINE LARGE (NEGATIVE); PH,URINE 6.5 (5.0-8.0); PROTEIN,URINE SEE CONFIRM (NEGATIVE)
[2017-02-23 11:27] LABS: ADD UA MICROSCOPIC YES
[2017-02-23 11:28] LABS: SQUAMOUS EPITHELIAL CELL,UR Moderate /LPF (None Seen); SULFOSALICYLIC ACID,URINE 3+ (Negative); WBC,URINE >100 /HPF (0-5)
[2017-02-23 19:19] VITALS: BP 110/65
[2017-02-23 23:55] VITALS: BP 114/68
[2017-02-24 02:30] VITALS: BP 119/70
[2017-02-24 03:52] VITALS: BP 115/63
[2017-02-24] MEDS: ACETAMINOPHEN 325 MG TABLET PO PRN (03:53)
[2017-02-24] MEDS: FERROUS SULFATE 325 MG EC TABLET PO SCH ×2 (06:35→16:49)
[2017-02-24] MEDS: MAG HYDROX/AL HYDROX/SIMETH 30 ML SUSP UDCUP PO PRN (06:40)
[2017-02-24 08:20] VITALS: BP 144/97
[2017-02-24] MEDS: CIPROFLOXACIN HCL 250 MG TABLET PO SCH ×2 (08:52→16:02)
[2017-02-24] MEDS: ESCITALOPRAM OXALATE 20 MG TABLET PO SCH (08:52)
[2017-02-24] MEDS: GABAPENTIN 400 MG CAPSULE PO SCH ×3 (08:52→16:02)
[2017-02-24] MEDS: LOSARTAN POTASSIUM 50 MG TABLET PO SCH (08:52)
[2017-02-24] MEDS: CloNIDine HCL 0.1 MG TABLET PO SCH ×2 (08:52→16:02)
[2017-02-24] MEDS: PHENAZOPYRIDINE HCL 200 MG TABLET PO SCH ×3 (08:53→16:02)
[2017-02-24 08:54] VITALS: BP 144/97
[2017-02-24] MEDS: LORazepam 1 MG TABLET PO PRN ×3 (08:54→20:30)
[2017-02-24] MEDS: IBUPROFEN 400 MG TABLET PO PRN (08:54)
[2017-02-24 09:55] VITALS: BP 135/89
[2017-02-24 17:29] VITALS: BP 146/83
[2017-02-25 00:05] VITALS: BP 146/70
[2017-02-25] MEDS: IBUPROFEN 400 MG TABLET PO PRN ×3 (00:08→19:25)
[2017-02-25] MEDS: MAG HYDROX/AL HYDROX/SIMETH 30 ML SUSP UDCUP PO PRN (03:27)
[2017-02-25] MEDS: FERROUS SULFATE 325 MG EC TABLET PO SCH ×2 (07:00→17:10)
[2017-02-25] MEDS: ESCITALOPRAM OXALATE 20 MG TABLET PO SCH (09:09)
[2017-02-25] MEDS: LOSARTAN POTASSIUM 50 MG TABLET PO SCH (09:09)
[2017-02-25] MEDS: CIPROFLOXACIN HCL 250 MG TABLET PO SCH (09:10)
[2017-02-25] MEDS: PHENAZOPYRIDINE HCL 200 MG TABLET PO SCH ×3 (09:10→16:12)
[2017-02-25] MEDS: GABAPENTIN 400 MG CAPSULE PO SCH ×3 (09:10→16:13)
[2017-02-25] MEDS: CloNIDine HCL 0.1 MG TABLET PO SCH ×2 (09:10→17:09)
[2017-02-25] MEDS: LORazepam 1 MG TABLET PO PRN ×2 (09:11→18:25)
[2017-02-25 09:13] VITALS: BP 139/94
[2017-02-25 10:12] VITALS: BP 130/90
[2017-02-25] MEDS: NITROFURANTOIN/NITROFURAN MAC 100 MG CAPSULE [MACROBID] PO SCH ×2 (14:38→16:12)
[2017-02-25] MEDS: ACETAMINOPHEN 325 MG TABLET PO PRN (14:38)
[2017-02-25 15:39] VITALS: BP 131/79
[2017-02-25 19:27] VITALS: BP 119/65
[2017-02-25 20:24] VITALS: BP 127/78
[2017-02-25] MEDS: ZOLPIDEM TARTRATE 10 MG TABLET PO PRN (21:23)
[2017-02-26 01:36] VITALS: BP 127/67
[2017-02-26] MEDS: ACETAMINOPHEN 325 MG TABLET PO PRN (01:36)
[2017-02-26] MEDS: IBUPROFEN 400 MG TABLET PO PRN (04:05)
[2017-02-26] MEDS: LORazepam 1 MG TABLET PO PRN ×2 (04:48→12:39)
[2017-02-26] MEDS: FERROUS SULFATE 325 MG EC TABLET PO SCH ×2 (07:03→16:43)
[2017-02-26 08:04] VITALS: BP 119/75
[2017-02-26] MEDS: CloNIDine HCL 0.1 MG TABLET PO SCH ×2 (08:55→16:41)
[2017-02-26] MEDS: ESCITALOPRAM OXALATE 20 MG TABLET PO SCH (08:55)
[2017-02-26] MEDS: PHENAZOPYRIDINE HCL 200 MG TABLET PO SCH ×3 (08:55→16:41)
[2017-02-26] MEDS: GABAPENTIN 400 MG CAPSULE PO SCH ×3 (08:55→16:41)
[2017-02-26] MEDS: NITROFURANTOIN/NITROFURAN MAC 100 MG CAPSULE [MACROBID] PO SCH ×2 (08:56→16:41)
[2017-02-26] MEDS: LOSARTAN POTASSIUM 50 MG TABLET PO SCH (08:56)
[2017-02-26] MEDS ORDERED: DOCUSATE SODIUM 100 MG CAPSULE PO PRN (17:00)
[2017-02-26 17:09] VITALS: BP 132/73
[2017-02-26] MEDS: ZOLPIDEM TARTRATE 10 MG TABLET PO PRN (20:06)
[2017-02-27 03:34] VITALS: BP 129/76
[2017-02-27] MEDS: IBUPROFEN 400 MG TABLET PO PRN (03:34)
[2017-02-27 03:35] VITALS: BP 128/70
[2017-02-27] MEDS: LORazepam 1 MG TABLET PO PRN ×2 (04:46→14:09)
[2017-02-27] MEDS: FERROUS SULFATE 325 MG EC TABLET PO SCH ×2 (06:32→17:09)
[2017-02-27] MEDS: GABAPENTIN 400 MG CAPSULE PO SCH ×3 (08:06→16:12)
[2017-02-27] MEDS: CloNIDine HCL 0.1 MG TABLET PO SCH ×2 (08:07→16:12)
[2017-02-27] MEDS: ESCITALOPRAM OXALATE 20 MG TABLET PO SCH (08:07)
[2017-02-27] MEDS: PHENAZOPYRIDINE HCL 200 MG TABLET PO SCH ×3 (08:07→16:12)
[2017-02-27] MEDS: NITROFURANTOIN/NITROFURAN MAC 100 MG CAPSULE [MACROBID] PO SCH ×2 (08:07→16:12)
[2017-02-27] MEDS: LOSARTAN POTASSIUM 50 MG TABLET PO SCH (08:08)
[2017-02-27 09:32] VITALS: BP 169/80
[2017-02-27] MEDS: ZOLPIDEM TARTRATE 10 MG TABLET PO PRN (21:14)
[2017-02-27 21:22] VITALS: BP 131/82
[2017-02-28] MEDS: IBUPROFEN 400 MG TABLET PO PRN ×2 (00:12→10:11)
[2017-02-28 00:13] VITALS: BP 127/64
[2017-02-28 06:15] VITALS: BP 132/70
[2017-02-28] MEDS: ACETAMINOPHEN 325 MG TABLET PO PRN (06:19)
[2017-02-28] MEDS: FERROUS SULFATE 325 MG EC TABLET PO SCH ×2 (07:01→16:10)
[2017-02-28 08:08] VITALS: BP 165/93
[2017-02-28] MEDS: PHENAZOPYRIDINE HCL 200 MG TABLET PO SCH ×3 (09:01→16:10)
[2017-02-28] MEDS: NITROFURANTOIN/NITROFURAN MAC 100 MG CAPSULE [MACROBID] PO SCH ×2 (09:01→16:10)
[2017-02-28] MEDS: GABAPENTIN 400 MG CAPSULE PO SCH ×3 (09:01→16:10)
[2017-02-28] MEDS: ESCITALOPRAM OXALATE 20 MG TABLET PO SCH (09:01)
[2017-02-28] MEDS: LOSARTAN POTASSIUM 50 MG TABLET PO SCH (09:02)
[2017-02-28] MEDS: CloNIDine HCL 0.1 MG TABLET PO SCH ×2 (09:02→16:10)
[2017-02-28] MEDS: LORazepam 1 MG TABLET PO PRN (09:02)
[2017-02-28 10:11] VITALS: BP 135/89
[2017-02-28 11:10] VITALS: BP 130/82
[2017-02-28 17:10] VITALS: BP 132/78
[2017-02-28] MEDS: ZOLPIDEM TARTRATE 10 MG TABLET PO PRN (20:07)
[2017-03-01] MEDS: IBUPROFEN 400 MG TABLET PO PRN (01:50)
[2017-03-01 01:52] VITALS: BP 113/82
[2017-03-01] MEDS: LORazepam 1 MG TABLET PO PRN ×2 (03:04→07:10)
[2017-03-01] MEDS: FERROUS SULFATE 325 MG EC TABLET PO SCH (06:46)
[2017-03-01 08:30] VITALS: BP 120/70
[2017-03-01] MEDS: CloNIDine HCL 0.1 MG TABLET PO SCH (08:54)
[2017-03-01] MEDS: NITROFURANTOIN/NITROFURAN MAC 100 MG CAPSULE [MACROBID] PO SCH (08:55)
[2017-03-01] MEDS: ESCITALOPRAM OXALATE 20 MG TABLET PO SCH (08:55)
[2017-03-01] MEDS: PHENAZOPYRIDINE HCL 200 MG TABLET PO SCH ×2 (08:56→12:18)
[2017-03-01] MEDS: GABAPENTIN 400 MG CAPSULE PO SCH ×2 (08:56→12:18)
[2017-03-01] MEDS: LOSARTAN POTASSIUM 50 MG TABLET PO SCH (08:57)
[2017-03-01] MEDS ORDERED: CLON.1 PO (09:27)
[2017-03-01] MEDS ORDERED: PHEN-857 PO (09:27)
[2017-03-01] MEDS ORDERED: MACR100 PO (09:27)
[2017-03-01] MEDS ORDERED: FERR-89 PO (09:27)
[2017-03-01] MEDS ORDERED: LOSA50TA37 PO (09:27)
[2017-03-01] MEDS ORDERED: ESCI20TA PO (09:27)
[2017-03-01] MEDS ORDERED: GABA-533 PO (09:27)
[2017-03-19] MEDS ORDERED: DIVA500T35 PO (13:59)
[2017-03-19] MEDS ORDERED: QUET25TA PO (13:59)
[2017-03-19] MEDS ORDERED: CLON.1 PO (14:00)
[2017-03-19] MEDS ORDERED: CIP250 PO (14:01)
[2017-03-19] MEDS ORDERED: FERR-89 PO (14:02)
[2017-03-19] MEDS ORDERED: PROP10 PO (14:02)
[2017-03-19] MEDS ORDERED: AMLO-511 PO (14:02)
== END 2017-03-01 13:30 | disposition home or self-care (01) | DRG 751 ==
LOC: EEVIPCON 07:39 → EMS 07:39 → 3EI 14:55
PROVIDERS: ADMIT Psychiatry & Neurology Psychiatry; ATTEND Psychiatry & Neurology Psychiatry
DX: F33.2 Major depressive disorder, recurrent severe without psychotic features (principal); E87.0 Hyperosmolality and hypernatremia; N18.3 Chronic kidney disease, stage 3 (moderate); F41.9 Anxiety disorder, unspecified; E78.5 Hyperlipidemia, unspecified; N39.0 Urinary tract infection, site not specified; E87.6 Hypokalemia; I12.9 Hypertensive chronic kidney disease with stage 1 through stage 4 chronic kidney disease, or unspecified chronic kidney disease; M19.90 Unspecified osteoarthritis, unspecified site; Z88.0 Allergy status to penicillin; Z88.8 Allergy status to other drugs, medicaments and biological substances
CPT/HCPCS: 76770; 83036; 84132; 84443; 87086; 96372; 99285; G0480; J2060; Q0162

== ENCOUNTER 2017-03-04 08:51 | Emergency (ER) | payer MEDICAID ==
[~2017-03-04] VITALS: Ht 167.6 cm; Wt 63.6 kg
[~2017-03-04 08:51] MED LIST changes: -BENZ1TAB10 PO; -DIVA500T35 PO; +ESCI20TA PO; -ESCI20TA36 PO; -LOSA100T29 PO; +LOSA50TA37 PO; +MACR100 PO; -MIRT30TA6 PO; -VIST50 PO
[2017-03-04] MEDS ORDERED: LORazepam 1 MG TABLET PO ONE (10:15)
[2017-03-04 10:31] LABS: APPEARANCE,URINE TURBID (CLEAR); GLUCOSE, URINE (UA) NEGATIVE (NEGATIVE); KETONES,URINE NEGATIVE (NEGATIVE); LEUKOCYTE ESTERASE ,URINE LARGE (NEGATIVE); OCCULT BLOOD,URINE LARGE (NEGATIVE); PH,URINE 5.5 (5.0-8.0); PROTEIN,URINE SEE CONFIRM (NEGATIVE)
[2017-03-04 10:35] LABS: ADD UA MICROSCOPIC YES
[2017-03-04 10:37] LABS: SULFOSALICYLIC ACID,URINE 2+ (Negative)
[2017-03-04 10:40] LABS: WBC,URINE 51-100 /HPF (0-5)
[2017-03-04 10:41] LABS: SQUAMOUS EPITHELIAL CELL,UR Few /LPF (None Seen)
[2017-03-04 11:45] VITALS: BP 159/85
[2017-03-04] MEDS ORDERED: HYDROCODONE/ACETAMINOPHEN 5-325 MG TABLET PO ONE (11:45)
[2017-03-05] MEDS ORDERED: HYDR-309 PO (08:14)
[2017-03-05] MEDS ORDERED: LORA-192 PO (08:14)
[2017-03-05] MEDS ORDERED: CIPR-279 PO (08:14)
== END 2017-03-04 11:52 | disposition home or self-care (01) ==
LOC: EEVIPCON 08:57 → EMS 08:57
DX: F41.9 Anxiety disorder, unspecified (principal); N39.0 Urinary tract infection, site not specified; I10 Essential (primary) hypertension; E78.00 Pure hypercholesterolemia, unspecified; F11.90 Opioid use, unspecified, uncomplicated; F19.90 Other psychoactive substance use, unspecified, uncomplicated; F17.210 Nicotine dependence, cigarettes, uncomplicated; Z88.0 Allergy status to penicillin; Z88.8 Allergy status to other drugs, medicaments and biological substances
CPT/HCPCS: 87086; 99284

== ENCOUNTER 2017-03-04 14:39 | Emergency (ER) | payer MEDICAID ==
[~2017-03-04] VITALS: Ht 167.6 cm; Wt 63.6 kg
[2017-03-04 14:58] VITALS: BP 126/97
[2017-03-04] MEDS ORDERED: LORazepam 1 MG TABLET PO ONE (15:45)
[2017-03-05] MEDS ORDERED: CIPR-279 PO (08:14)
[2017-03-05] MEDS ORDERED: LORA-192 PO (08:14)
[2017-03-05] MEDS ORDERED: HYDR-309 PO (08:14)
== END 2017-03-04 17:05 | disposition home or self-care (01) ==
LOC: EMS 14:41
DX: F41.9 Anxiety disorder, unspecified (principal); E78.00 Pure hypercholesterolemia, unspecified; I10 Essential (primary) hypertension; F17.210 Nicotine dependence, cigarettes, uncomplicated; Z88.0 Allergy status to penicillin; Z88.8 Allergy status to other drugs, medicaments and biological substances; Z90.710 Acquired absence of both cervix and uterus; Z87.442 Personal history of urinary calculi; Z96.649 Presence of unspecified artificial hip joint; Z98.890 Other specified postprocedural states
CPT/HCPCS: 99284

== ENCOUNTER 2017-03-05 07:53 | Emergency (ER) | payer MEDICAID ==
[~2017-03-05] VITALS: Ht 167.6 cm; Wt 56.8 kg
[2017-03-05] MEDS ORDERED: LORA-192 PO (08:14)
[2017-03-05] MEDS ORDERED: CIPR-279 PO (08:14)
[2017-03-05] MEDS ORDERED: HYDR-309 PO (08:14)
[2017-03-05 08:20] VITALS: BP 121/77
== END 2017-03-05 08:59 | disposition home or self-care (01) ==
LOC: EMS 07:57
DX: F41.9 Anxiety disorder, unspecified (principal); I10 Essential (primary) hypertension; E78.00 Pure hypercholesterolemia, unspecified; F11.90 Opioid use, unspecified, uncomplicated; F19.90 Other psychoactive substance use, unspecified, uncomplicated; F17.210 Nicotine dependence, cigarettes, uncomplicated; Z88.0 Allergy status to penicillin; Z88.8 Allergy status to other drugs, medicaments and biological substances
CPT/HCPCS: 99284

== ENCOUNTER 2017-03-05 09:55 | Inpatient (IN) | payer MEDICAID ==
[~2017-03-05] VITALS: Ht 167.6 cm; Wt 56.8 kg
[~2017-03-05 09:55] MED LIST changes: +CIPR-279 PO; +HYDR-309 PO; +LORA-192 PO
[2017-03-05 10:21] LABS: BASOPHILS # (AUTO) 0.06 K/uL (0.00-0.20); BASOPHILS % (AUTO) 1.4 % (0.0-2.0); EOSINOPHILS # (AUTO) 0.01 K/uL (0.00-0.70); EOSINOPHILS % (AUTO) 0.16 % (1.0-6.0); HEMATOCRIT 34.8 % (36-46); HEMOGLOBIN 10.9 g/dL (12.0-16.0); LYMPHOCYTES # (AUTO) 1.2 K/uL (1.0-4.8); LYMPHOCYTES % (AUTO) 29.7 % (22.0-44.0); MEAN CORPUSCULAR HEMOGLOBIN 22.9 pg (26.0-34.0); MEAN CORPUSCULAR HGB CONC 31.4 G/dL (31.0-37.0); MEAN CORPUSCULAR VOLUME 73 fL (80-100); MONOCYTES # (AUTO) 0.2 K/uL (0.1-1.0); MONOCYTES % (AUTO) 5.2 % (2.0-9.0); NEUTROPHILS # (AUTO) 2.6 K/uL (1.8-7.7); NEUTROPHILS % (AUTO) 63.6 % (40.0-70.0); PLATELET COUNT (AUTO) 268 K/uL (150-450); RED BLOOD CELL COUNT(AUTO) 4.77 MIL/uL (4.00-5.20); RED CELL DISTRIBUTION WIDTH 16.9 % (11.5-14.5); WHITE BLOOD COUNT (AUTO) 4.1 K/uL (4.5-11.0)
[2017-03-05 10:27] LABS: ANION GAP 9 mmol/L (8-16); CALCIUM, TOTAL 9.3 mg/dL (8.8-10.5); CARBON DIOXIDE 28 mmol/L (22-29); CHLORIDE 104 mmol/L (98-107); CREATININE 1.22 mg/dL (0.60-1.30); GLOMERULAR FILTR. RATE CALC 54 mL/min (>60); SODIUM SERUM 141 mmol/L (136-145); UREA NITROGEN, BLOOD 23 mg/dL (7-18)
[2017-03-05 10:33] LABS: ALANINE AMINOTRANSFERASE 19 U/L (12-78); ALBUMIN 3.8 g/dL (3.4-5.0); ASPARTATE AMINOTRANSFERASE 14 U/L (15-37); BILIRUBIN,TOTAL 0.4 mg/dL (0.1-1.0); TOTAL PROTEIN, SERUM 8.1 g/dL (6.4-8.2)
[2017-03-05 10:36] LABS: RBC MORPHOLOGY COMMENT ABNORMAL RBC MORPH
[2017-03-05] MEDS: HALOPERIDOL 5 MG TABLET PO PRN (10:46)
[2017-03-05] MEDS: LORazepam 2 MG TABLET PO PRN ×2 (10:46→20:06)
[2017-03-05 11:28] VITALS: BP 119/65
[2017-03-05] MEDS: PHENAZOPYRIDINE HCL 200 MG TABLET PO SCH ×2 (13:55→15:58)
[2017-03-05] MEDS: NITROFURANTOIN/NITROFURAN MAC 100 MG CAPSULE [MACROBID] PO SCH (15:58)
[2017-03-05] MEDS: IBUPROFEN 600 MG TABLET PO PRN (16:57)
[2017-03-05] MEDS: CloNIDine HCL 0.1 MG TABLET PO SCH (16:59)
[2017-03-05] MEDS: DIVALPROEX SODIUM 500 MG DR TABLET PO SCH (16:59)
[2017-03-05 17:00] VITALS: BP 126/78
[2017-03-05] MEDS: FERROUS SULFATE 325 MG EC TABLET PO SCH (17:05)
[2017-03-05] MEDS: PROPRANOLOL HCL 10 MG TABLET PO SCH (17:31)
[2017-03-06] MEDS: ZOLPIDEM TARTRATE 10 MG TABLET PO PRN ×2 (00:24→21:16)
[2017-03-06 06:25] VITALS: BP 130/72
[2017-03-06] MEDS: IBUPROFEN 600 MG TABLET PO PRN ×2 (06:29→12:30)
[2017-03-06 07:03] LABS: CHOL/HDL RATIO 4.1 (3.9-5.7); THYROID STIMULATING HORMONE 1.01 uIU/mL (0.36-3.74)
[2017-03-06] MEDS: FERROUS SULFATE 325 MG EC TABLET PO SCH ×2 (07:06→16:07)
[2017-03-06 07:13] LABS: BASOPHILS # (AUTO) 0.03 K/uL (0.00-0.20); BASOPHILS % (AUTO) 0.8 % (0.0-2.0); EOSINOPHILS # (AUTO) 0.04 K/uL (0.00-0.70); EOSINOPHILS % (AUTO) 1.18 % (1.0-6.0); HEMATOCRIT 30.4 % (36-46); HEMOGLOBIN 9.6 g/dL (12.0-16.0); MEAN CORPUSCULAR HEMOGLOBIN 22.8 pg (26.0-34.0); MEAN CORPUSCULAR HGB CONC 31.6 G/dL (31.0-37.0); MEAN CORPUSCULAR VOLUME 72 fL (80-100); MONOCYTES # (AUTO) 0.3 K/uL (0.1-1.0); MONOCYTES % (AUTO) 7.6 % (2.0-9.0); NEUTROPHILS # (AUTO) 1.2 K/uL (1.8-7.7); NEUTROPHILS % (AUTO) 33.5 % (40.0-70.0); PLATELET COUNT (AUTO) 209 K/uL (150-450); RED BLOOD CELL COUNT(AUTO) 4.23 MIL/uL (4.00-5.20); RED CELL DISTRIBUTION WIDTH 16.7 % (11.5-14.5); WHITE BLOOD COUNT (AUTO) 3.5 K/uL (4.5-11.0)
[2017-03-06] MEDS: LORazepam 2 MG TABLET PO PRN ×2 (07:44→17:59)
[2017-03-06 08:10] VITALS: BP 125/90
[2017-03-06] MEDS: DIVALPROEX SODIUM 500 MG DR TABLET PO SCH ×2 (08:35→16:08)
[2017-03-06] MEDS: PHENAZOPYRIDINE HCL 200 MG TABLET PO SCH ×3 (08:35→16:08)
[2017-03-06] MEDS: CloNIDine HCL 0.1 MG TABLET PO SCH ×2 (08:35→16:08)
[2017-03-06] MEDS: NITROFURANTOIN/NITROFURAN MAC 100 MG CAPSULE [MACROBID] PO SCH ×2 (08:35→16:08)
[2017-03-06] MEDS: PROPRANOLOL HCL 10 MG TABLET PO SCH ×2 (08:35→16:07)
[2017-03-06] MEDS: HALOPERIDOL 5 MG TABLET PO PRN (08:37)
[2017-03-06 09:48] LABS: APPEARANCE,URINE CLEAR (CLEAR); GLUCOSE, URINE (UA) NEGATIVE (NEGATIVE); KETONES,URINE NEGATIVE (NEGATIVE); LEUKOCYTE ESTERASE ,URINE TRACE (NEGATIVE); OCCULT BLOOD,URINE SMALL (NEGATIVE); PH,URINE 6.5 (5.0-8.0); PROTEIN,URINE NEGATIVE (NEGATIVE)
[2017-03-06 09:49] LABS: ADD UA MICROSCOPIC YES
[2017-03-06 10:00] LABS: SQUAMOUS EPITHELIAL CELL,UR Few /LPF (None Seen)
[2017-03-06] MEDS: ACETAMINOPHEN 325 MG TABLET PO PRN (13:49)
[2017-03-06 16:39] VITALS: BP 152/89
[2017-03-07] MEDS: IBUPROFEN 600 MG TABLET PO PRN ×2 (00:22→10:10)
[2017-03-07 00:23] VITALS: BP 135/80
[2017-03-07] MEDS: LORazepam 2 MG TABLET PO PRN ×2 (01:28→08:30)
[2017-03-07] MEDS: ACETAMINOPHEN 325 MG TABLET PO PRN ×2 (04:19→11:26)
[2017-03-07] MEDS: FERROUS SULFATE 325 MG EC TABLET PO SCH ×2 (06:43→16:04)
[2017-03-07] MEDS: CloNIDine HCL 0.1 MG TABLET PO SCH ×2 (08:29→16:03)
[2017-03-07] MEDS: PROPRANOLOL HCL 10 MG TABLET PO SCH ×2 (08:29→16:04)
[2017-03-07] MEDS: DIVALPROEX SODIUM 500 MG DR TABLET PO SCH ×2 (08:29→16:03)
[2017-03-07] MEDS: NITROFURANTOIN/NITROFURAN MAC 100 MG CAPSULE [MACROBID] PO SCH ×2 (08:30→16:03)
[2017-03-07] MEDS: PHENAZOPYRIDINE HCL 200 MG TABLET PO SCH ×3 (08:30→16:03)
[2017-03-07 10:10] VITALS: BP 132/80
[2017-03-07] MEDS ORDERED: LORazepam 2 MG TABLET PO PRN (10:45)
[2017-03-07] MEDS: LORazepam 1 MG TABLET PO PRN (16:03)
[2017-03-07 18:06] VITALS: BP 150/94
[2017-03-07] MEDS: ZOLPIDEM TARTRATE 10 MG TABLET PO PRN (22:35)
[2017-03-08 04:00] VITALS: BP 129/79
[2017-03-08] MEDS: ACETAMINOPHEN 325 MG TABLET PO PRN ×2 (04:02→13:30)
[2017-03-08] MEDS: LORazepam 1 MG TABLET PO PRN (04:50)
[2017-03-08 06:00] VITALS: BP 130/78
[2017-03-08] MEDS: IBUPROFEN 600 MG TABLET PO PRN ×2 (06:03→16:18)
[2017-03-08] MEDS: FERROUS SULFATE 325 MG EC TABLET PO SCH ×2 (06:56→16:17)
[2017-03-08] MEDS: DIVALPROEX SODIUM 500 MG DR TABLET PO SCH ×2 (08:13→16:17)
[2017-03-08] MEDS: HALOPERIDOL 5 MG TABLET PO PRN (08:14)
[2017-03-08] MEDS: CloNIDine HCL 0.1 MG TABLET PO SCH ×2 (08:14→16:17)
[2017-03-08] MEDS: PROPRANOLOL HCL 10 MG TABLET PO SCH ×2 (08:14→16:17)
[2017-03-08] MEDS: PHENAZOPYRIDINE HCL 200 MG TABLET PO SCH ×3 (08:14→16:17)
[2017-03-08] MEDS: NITROFURANTOIN/NITROFURAN MAC 100 MG CAPSULE [MACROBID] PO SCH ×2 (08:15→16:17)
[2017-03-08 12:29] VITALS: BP 155/84
[2017-03-08 13:30] VITALS: BP 156/77
[2017-03-08 14:30] VITALS: BP 152/78
[2017-03-08 16:18] VITALS: BP 152/99
[2017-03-08] MEDS: ZOLPIDEM TARTRATE 10 MG TABLET PO PRN (20:16)
[2017-03-08] MEDS ORDERED: ONDANSETRON HCL 4 MG TABLET PO PRN (20:30)
[2017-03-09] MEDS: LORazepam 1 MG TABLET PO PRN ×2 (01:50→06:24)
[2017-03-09 02:33] VITALS: BP 174/92
[2017-03-09] MEDS: ACETAMINOPHEN 325 MG TABLET PO PRN (02:51)
[2017-03-09 03:04] VITALS: BP 183/90
[2017-03-09] MEDS ORDERED: CloNIDine HCL 0.1 MG TABLET PO PRN (03:15)
[2017-03-09 04:29] VITALS: BP 140/72
[2017-03-09 08:13] VITALS: BP 154/81
[2017-03-09] MEDS: IBUPROFEN 600 MG TABLET PO PRN (08:13)
[2017-03-09] MEDS: DIVALPROEX SODIUM 500 MG DR TABLET PO SCH (08:13)
[2017-03-09] MEDS: FERROUS SULFATE 325 MG EC TABLET PO SCH (08:13)
[2017-03-09] MEDS: HALOPERIDOL 5 MG TABLET PO PRN (08:13)
[2017-03-09] MEDS: CloNIDine HCL 0.1 MG TABLET PO SCH (08:13)
[2017-03-09] MEDS: NITROFURANTOIN/NITROFURAN MAC 100 MG CAPSULE [MACROBID] PO SCH (08:14)
[2017-03-09] MEDS: PHENAZOPYRIDINE HCL 200 MG TABLET PO SCH ×2 (08:14→11:59)
[2017-03-09] MEDS: PROPRANOLOL HCL 10 MG TABLET PO SCH (08:14)
[2017-03-09 09:15] VITALS: BP 149/78
[2017-03-09] MEDS ORDERED: DIVA500T35 PO (11:18)
[2017-03-09] MEDS ORDERED: PROP10 PO (11:18)
[2017-03-09] MEDS ORDERED: CIP250 PO (17:23)
[2017-03-09] MEDS ORDERED: LORA1TAB3 PO (17:23)
[2017-03-09] MEDS ORDERED: HYDR-309 PO (17:23)
[2017-03-09] MEDS ORDERED: METF500T4 PO (18:05)
[2017-03-09] MEDS ORDERED: TRAZ-144 PO (18:05)
[2017-03-09] MEDS ORDERED: HYDR-3112 PO (18:05)
[2017-03-19] MEDS ORDERED: DIVA500T35 PO (13:59)
[2017-03-19] MEDS ORDERED: QUET25TA PO (13:59)
[2017-03-19] MEDS ORDERED: CLON.1 PO (14:00)
[2017-03-19] MEDS ORDERED: CIP250 PO (14:01)
[2017-03-19] MEDS ORDERED: FERR-89 PO (14:02)
[2017-03-19] MEDS ORDERED: AMLO-511 PO (14:02)
[2017-03-19] MEDS ORDERED: PROP10 PO (14:02)
== END 2017-03-09 13:10 | disposition home or self-care (01) | DRG 754 ==
LOC: EMS 09:57 → 3EI 10:43
PROVIDERS: ADMIT Psychiatry & Neurology Psychiatry; ATTEND Psychiatry & Neurology Psychiatry
DX: F32.9 Major depressive disorder, single episode, unspecified (principal); I10 Essential (primary) hypertension; Z88.0 Allergy status to penicillin; E78.5 Hyperlipidemia, unspecified; M19.90 Unspecified osteoarthritis, unspecified site; D72.819 Decreased white blood cell count, unspecified; D64.9 Anemia, unspecified; F19.10 Other psychoactive substance abuse, uncomplicated; F17.200 Nicotine dependence, unspecified, uncomplicated
CPT/HCPCS: 84436; 84439; 84443; 86592; 87081; 99285; G0480; Q0162

== ENCOUNTER 2017-03-09 16:54 | Emergency (ER) | payer MEDICAID ==
[~2017-03-09] VITALS: Ht 167.6 cm; Wt 56.8 kg
[~2017-03-09 16:54] MED LIST changes: +DIVA500T35 PO; +PROP10 PO
[2017-03-09] MEDS ORDERED: HYDR-309 PO (17:23)
[2017-03-09] MEDS ORDERED: CIP250 PO (17:23)
[2017-03-09] MEDS ORDERED: LORA1TAB3 PO (17:23)
[2017-03-09] MEDS ORDERED: HYDR-3112 PO (18:05)
[2017-03-09] MEDS ORDERED: TRAZ-144 PO (18:05)
[2017-03-09] MEDS ORDERED: METF500T4 PO (18:05)
[2017-03-09 18:12] LABS: APPEARANCE,URINE CLOUDY (CLEAR); GLUCOSE, URINE (UA) NEGATIVE (NEGATIVE); KETONES,URINE 15 mg/dL (NEGATIVE); LEUKOCYTE ESTERASE ,URINE MODERATE (NEGATIVE); OCCULT BLOOD,URINE LARGE (NEGATIVE); PH,URINE 5.5 (5.0-8.0); PROTEIN,URINE SEE CONFIRM (NEGATIVE)
[2017-03-09 18:13] LABS: ADD UA MICROSCOPIC YES
[2017-03-09 18:16] LABS: RBC,URINE 26-50 /HPF (0-2); SULFOSALICYLIC ACID,URINE 3+ (Negative)
[2017-03-09 18:17] LABS: SQUAMOUS EPITHELIAL CELL,UR Few /LPF (None Seen); WBC,URINE 26-50 /HPF (0-5)
[2017-03-09] MEDS ORDERED: NITROFURANTOIN/NITROFURAN MAC 100 MG CAPSULE [MACROBID] PO ONE (19:15)
[2017-03-09] MEDS ORDERED: PHENAZOPYRIDINE HCL 100 MG TABLET PO ONE (19:15)
[2017-03-09] MEDS ORDERED: ACETAMINOPHEN 500 MG TABLET PO ONE (19:15)
[2017-03-09 20:15] VITALS: BP 179/92
[2017-03-19] MEDS ORDERED: QUET25TA PO (13:59)
[2017-03-19] MEDS ORDERED: DIVA500T35 PO (13:59)
[2017-03-19] MEDS ORDERED: CLON.1 PO (14:00)
[2017-03-19] MEDS ORDERED: CIP250 PO (14:01)
[2017-03-19] MEDS ORDERED: FERR-89 PO (14:02)
[2017-03-19] MEDS ORDERED: AMLO-511 PO (14:02)
[2017-03-19] MEDS ORDERED: PROP10 PO (14:02)
== END 2017-03-09 20:56 | disposition home or self-care (01) ==
LOC: EMS 16:56
DX: N39.0 Urinary tract infection, site not specified (principal); F17.210 Nicotine dependence, cigarettes, uncomplicated; F11.10 Opioid abuse, uncomplicated; E78.00 Pure hypercholesterolemia, unspecified; I10 Essential (primary) hypertension; Z87.442 Personal history of urinary calculi; Z88.0 Allergy status to penicillin; Z88.1 Allergy status to other antibiotic agents
CPT/HCPCS: 87086; 99284

== ENCOUNTER 2017-03-14 09:52 | Emergency (ER) | payer MEDICAID ==
[~2017-03-14] VITALS: Ht 167.6 cm; Wt 70.5 kg
[~2017-03-14 09:52] MED LIST changes: +CIP250 PO; +HYDR-3112 PO; +LORA1TAB3 PO; +METF500T4 PO; +TRAZ-144 PO
[2017-03-14] MEDS ORDERED: NITR50 PO (10:10)
[2017-03-14] MEDS ORDERED: PHEN-857 PO (10:10)
[2017-03-14] MEDS ORDERED: HYDR-3965 PO (10:10)
[2017-03-14] MEDS ORDERED: HydrOXYzine HCL 25 MG TABLET PO ONE (10:30)
[2017-03-14] MEDS ORDERED: HydrOXYzine HCL 50 MG TABLET PO ONE (10:30)
[2017-03-14] MEDS ORDERED: ACETAMINOPHEN 325 MG TABLET PO ONE (11:15)
[2017-03-14] MEDS ORDERED: LORazepam 2 MG/ML VIAL IM ONE (11:45)
[2017-03-14 12:14] VITALS: BP 170/95
[2017-03-14 13:50] LABS: APPEARANCE,URINE CLOUDY (CLEAR); GLUCOSE, URINE (UA) NEGATIVE (NEGATIVE); KETONES,URINE 15 mg/dL (NEGATIVE); LEUKOCYTE ESTERASE ,URINE MODERATE (NEGATIVE); OCCULT BLOOD,URINE TRACE (NEGATIVE); PROTEIN,URINE SEE CONFIRM (NEGATIVE)
[2017-03-14 14:01] LABS: ADD UA MICROSCOPIC YES
[2017-03-14 14:05] LABS: SULFOSALICYLIC ACID,URINE 1+ (Negative)
[2017-03-14 14:06] LABS: SQUAMOUS EPITHELIAL CELL,UR Moderate /LPF (None Seen); WBC,URINE 51-100 /HPF (0-5)
[2017-03-19] MEDS ORDERED: DIVA500T35 PO (13:59)
[2017-03-19] MEDS ORDERED: QUET25TA PO (13:59)
[2017-03-19] MEDS ORDERED: CLON.1 PO (14:00)
[2017-03-19] MEDS ORDERED: CIP250 PO (14:01)
[2017-03-19] MEDS ORDERED: AMLO-511 PO (14:02)
[2017-03-19] MEDS ORDERED: FERR-89 PO (14:02)
[2017-03-19] MEDS ORDERED: PROP10 PO (14:02)
== END 2017-03-14 13:30 | disposition home or self-care (01) ==
LOC: EMS 09:54
DX: F41.9 Anxiety disorder, unspecified (principal); N39.0 Urinary tract infection, site not specified; R30.0 Dysuria; K59.00 Constipation, unspecified; F17.210 Nicotine dependence, cigarettes, uncomplicated; F11.10 Opioid abuse, uncomplicated; E78.00 Pure hypercholesterolemia, unspecified; I10 Essential (primary) hypertension; Z87.442 Personal history of urinary calculi; Z88.0 Allergy status to penicillin; Z88.1 Allergy status to other antibiotic agents
CPT/HCPCS: 87086; 99284

== ENCOUNTER 2017-03-15 07:37 | Emergency (ER) | payer MEDICAID ==
[~2017-03-15] VITALS: Ht 167.6 cm; Wt 59.0 kg
[~2017-03-15 07:37] MED LIST changes: -CIP250 PO; -CIPR-279 PO; -CLON.1 PO; -DIVA500T35 PO; -ESCI20TA PO; -FERR-89 PO; -GABA-533 PO; -HYDR-309 PO; +HYDR-3965 PO; -LORA-192 PO; -LORA1TAB3 PO; -LOSA50TA37 PO; -MACR100 PO; +NITR50 PO; -PROP10 PO
[2017-03-15] MEDS ORDERED: QUEtiapine FUMARATE 25 MG TABLET PO ONE (08:30)
[2017-03-15] MEDS ORDERED: HydrOXYzine HCL 50 MG TABLET PO ONE (08:30)
[2017-03-15] MEDS ORDERED: QUEtiapine FUMARATE 200 MG TABLET PO ONE (08:30)
[2017-03-15] MEDS ORDERED: HydrOXYzine HCL 25 MG TABLET PO ONE (08:30)
[2017-03-15] MEDS ORDERED: SODIUM CHLORIDE 0.9% 1,000 ML IV ONE (11:45)
[2017-03-15] MEDS ORDERED: CefTRIAXone 1 GM/DEXTROSE 50 ML IV ONE (11:45)
[2017-03-15 11:54] LABS: APPEARANCE,URINE CLOUDY (CLEAR); GLUCOSE, URINE (UA) NEGATIVE (NEGATIVE); KETONES,URINE 15 mg/dL (NEGATIVE); LEUKOCYTE ESTERASE ,URINE MODERATE (NEGATIVE); OCCULT BLOOD,URINE NEGATIVE (NEGATIVE); PROTEIN,URINE SEE CONFIRM (NEGATIVE)
[2017-03-15 11:57] LABS: ADD UA MICROSCOPIC YES
[2017-03-15 12:07] LABS: CALCIUM OXALATE CRYSTALS,UR Moderate /LPF (None Seen); SQUAMOUS EPITHELIAL CELL,UR Few /LPF (None Seen)
[2017-03-15 12:16] LABS: BASOPHILS # (AUTO) 0.01 K/uL (0.00-0.20); BASOPHILS % (AUTO) 0.3 % (0.0-2.0); EOSINOPHILS # (AUTO) 0.02 K/uL (0.00-0.70); EOSINOPHILS % (AUTO) 0.34 % (1.0-6.0); HEMATOCRIT 33.7 % (36-46); HEMOGLOBIN 10.1 g/dL (12.0-16.0); LYMPHOCYTES # (AUTO) 1.8 K/uL (1.0-4.8); LYMPHOCYTES % (AUTO) 33.2 % (22.0-44.0); MEAN CORPUSCULAR HEMOGLOBIN 22.3 pg (26.0-34.0); MEAN CORPUSCULAR VOLUME 74 fL (80-100); MONOCYTES # (AUTO) 0.4 K/uL (0.1-1.0); MONOCYTES % (AUTO) 6.8 % (2.0-9.0); NEUTROPHILS # (AUTO) 3.3 K/uL (1.8-7.7); NEUTROPHILS % (AUTO) 59.4 % (40.0-70.0); PLATELET COUNT (AUTO) 263 K/uL (150-450); RED BLOOD CELL COUNT(AUTO) 4.53 MIL/uL (4.00-5.20); RED CELL DISTRIBUTION WIDTH 16.7 % (11.5-14.5); WHITE BLOOD COUNT (AUTO) 5.5 K/uL (4.5-11.0)
[2017-03-15 12:18] LABS: CALCIUM, TOTAL 9.4 mg/dL (8.8-10.5); CREATININE 1.17 mg/dL (0.60-1.30); POTASSIUM 3.2 mmol/L (3.5-5.1)
[2017-03-15 12:25] LABS: ALBUMIN 3.4 g/dL (3.4-5.0); BILIRUBIN,TOTAL 0.3 mg/dL (0.1-1.0)
[2017-03-15 13:14] LABS: RBC MORPHOLOGY COMMENT ABNORMAL RBC MORPH
[2017-03-15 14:06] VITALS: BP 168/78
== END 2017-03-15 14:18 | disposition home or self-care (01) ==
LOC: EMS 07:39
DX: F41.9 Anxiety disorder, unspecified (principal); R10.30 Lower abdominal pain, unspecified; I10 Essential (primary) hypertension; E78.00 Pure hypercholesterolemia, unspecified; F19.90 Other psychoactive substance use, unspecified, uncomplicated; F11.90 Opioid use, unspecified, uncomplicated; F17.210 Nicotine dependence, cigarettes, uncomplicated; Z88.0 Allergy status to penicillin; Z88.8 Allergy status to other drugs, medicaments and biological substances; Z87.440 Personal history of urinary (tract) infections
CPT/HCPCS: 36415; 80053; 81001; 85025; 96365; 99284; J0696; J7030

== ENCOUNTER 2017-03-27 06:51 | Emergency (ER) | payer MEDICAID ==
[~2017-03-27] VITALS: Ht 167.6 cm; Wt 59.0 kg
[~2017-03-27 06:51] MED LIST changes: +AMLO-511 PO; +CIP250 PO; +CLON.1 PO; +DIVA500T35 PO; +FERR-89 PO; -HYDR-3112 PO; -HYDR-3965 PO; -METF500T4 PO; +PROP10 PO; +QUET25TA PO; -TRAZ-144 PO
[2017-03-27] MEDS ORDERED: IBUPROFEN 600 MG TABLET PO ONE (07:15)
[2017-03-27] MEDS ORDERED: HydrOXYzine PAMOATE 50 MG CAPSULE PO ONE (07:15)
[2017-03-27 07:54] LABS: APPEARANCE,URINE TURBID (CLEAR); GLUCOSE, URINE (UA) NEGATIVE (NEGATIVE); KETONES,URINE NEGATIVE (NEGATIVE); LEUKOCYTE ESTERASE ,URINE LARGE (NEGATIVE); OCCULT BLOOD,URINE LARGE (NEGATIVE); PROTEIN,URINE SEE CONFIRM (NEGATIVE)
[2017-03-27 07:56] LABS: SULFOSALICYLIC ACID,URINE 3+ (Negative)
[2017-03-27 07:57] LABS: RBC,URINE 51-100 /HPF (0-2)
[2017-03-27] MEDS ORDERED: LIDOCAINE HCL/PF 1% 2 ML VIAL IM ONE (08:00)
[2017-03-27] MEDS ORDERED: CefTRIAXone SODIUM 1 GM/VIAL IM ONE (08:00)
[2017-03-27 08:15] VITALS: BP 125/72
== END 2017-03-27 08:33 | disposition home or self-care (01) ==
LOC: EMS 06:53
DX: N39.0 Urinary tract infection, site not specified (principal); F41.9 Anxiety disorder, unspecified; I10 Essential (primary) hypertension; E78.00 Pure hypercholesterolemia, unspecified; F15.90 Other stimulant use, unspecified, uncomplicated; F19.90 Other psychoactive substance use, unspecified, uncomplicated; F17.210 Nicotine dependence, cigarettes, uncomplicated; Z88.0 Allergy status to penicillin; Z88.8 Allergy status to other drugs, medicaments and biological substances
CPT/HCPCS: 51701; 81001; 87077; 87086; 87186; 96372; 99284; J0696; J3490

== ENCOUNTER 2017-04-19 07:30 | Emergency (ER) | payer MEDICAID ==
[~2017-04-19] VITALS: Ht 167.6 cm; Wt 63.6 kg
[2017-04-19 07:37] VITALS: BP 139/69
[2017-04-19] MEDS ORDERED: QUEtiapine FUMARATE 25 MG TABLET PO ONE (08:00)
[2017-04-19] MEDS ORDERED: HydrOXYzine HCL 50 MG TABLET PO ONE (08:00)
[2017-04-19 09:18] LABS: APPEARANCE,URINE TURBID (CLEAR); GLUCOSE, URINE (UA) NEGATIVE (NEGATIVE); KETONES,URINE NEGATIVE (NEGATIVE); LEUKOCYTE ESTERASE ,URINE MODERATE (NEGATIVE); OCCULT BLOOD,URINE LARGE (NEGATIVE); PH,URINE 5.5 (5.0-8.0); PROTEIN,URINE SEE CONFIRM (NEGATIVE)
[2017-04-19 09:21] LABS: RBC,URINE 51-100 /HPF (0-2); SULFOSALICYLIC ACID,URINE 3+ (Negative); WBC,URINE 26-50 /HPF (0-5)
[2017-04-19 09:22] LABS: SQUAMOUS EPITHELIAL CELL,UR Many /LPF (None Seen)
[2017-04-19] MEDS ORDERED: NITROFURANTOIN/NITROFURAN MAC 100 MG CAPSULE [MACROBID] PO ONE (09:45)
== END 2017-04-19 10:08 | disposition home or self-care (01) ==
LOC: EMS 07:31
DX: F41.9 Anxiety disorder, unspecified (principal); N39.0 Urinary tract infection, site not specified; E78.00 Pure hypercholesterolemia, unspecified; I10 Essential (primary) hypertension; F17.210 Nicotine dependence, cigarettes, uncomplicated; F11.90 Opioid use, unspecified, uncomplicated; F13.20 Sedative, hypnotic or anxiolytic dependence, uncomplicated; Z87.442 Personal history of urinary calculi; Z88.0 Allergy status to penicillin; Z88.5 Allergy status to narcotic agent
CPT/HCPCS: 87086; 99284

== ENCOUNTER 2017-04-26 14:57 | Emergency (ER) | payer MEDICAID ==
[~2017-04-26] VITALS: Ht 167.6 cm; Wt 63.6 kg
[2017-04-26] MEDS ORDERED: ACETAMINOPHEN 325 MG TABLET PO ONE (15:45)
[2017-04-26] MEDS ORDERED: LORazepam 1 MG TABLET PO ONE (16:00)
[2017-04-26 16:04] LABS: APPEARANCE,URINE CLOUDY (CLEAR); GLUCOSE, URINE (UA) NEGATIVE (NEGATIVE); KETONES,URINE NEGATIVE (NEGATIVE); OCCULT BLOOD,URINE LARGE (NEGATIVE); PROTEIN,URINE SEE CONFIRM (NEGATIVE)
[2017-04-26 16:16] LABS: LEUKOCYTE ESTERASE ,URINE MODERATE (NEGATIVE)
[2017-04-26 16:17] LABS: RBC,URINE 51-100 /HPF (0-2); SQUAMOUS EPITHELIAL CELL,UR Moderate /LPF (None Seen); SULFOSALICYLIC ACID,URINE 3+ (Negative); WBC,URINE 51-100 /HPF (0-5)
[2017-04-26 16:18] LABS: CALCIUM OXALATE CRYSTALS,UR Moderate /LPF (None Seen)
[2017-04-26 16:19] LABS: BASOPHILS % (AUTO) 0.1 % (0.0-2.0); EOSINOPHILS % (AUTO) 0.5 % (1.0-6.0); HEMATOCRIT 34.3 % (36-46); LYMPHOCYTES # (AUTO) 1.6 K/uL (1.0-4.8); LYMPHOCYTES % (AUTO) 30.6 % (22.0-44.0); MEAN CORPUSCULAR VOLUME 72 fL (80-100); MONOCYTES # (AUTO) 0.3 K/uL (0.1-1.0); MONOCYTES % (AUTO) 5.5 % (2.0-9.0); NEUTROPHILS # (AUTO) 3.4 K/uL (1.8-7.7); NEUTROPHILS % (AUTO) 63.3 % (40.0-70.0); PLATELET COUNT (AUTO) 305 K/uL (150-450); RED BLOOD CELL COUNT(AUTO) 4.77 MIL/uL (4.00-5.20); RED CELL DISTRIBUTION WIDTH 18.5 % (11.5-14.5); WHITE BLOOD COUNT (AUTO) 5.4 K/uL (4.5-11.0)
[2017-04-26 16:34] LABS: ANION GAP 8 mmol/L (8-16); CALCIUM, TOTAL 9.9 mg/dL (8.8-10.5); CARBON DIOXIDE 28 mmol/L (22-29); CHLORIDE 107 mmol/L (98-107); GLOMERULAR FILTR. RATE CALC > 60 mL/min (>60); POTASSIUM 3.5 mmol/L (3.5-5.1); SODIUM SERUM 143 mmol/L (136-145); UREA NITROGEN, BLOOD 14 mg/dL (7-18)
[2017-04-26 16:40] LABS: ALANINE AMINOTRANSFERASE 18 U/L (12-78); ALBUMIN 3.6 g/dL (3.4-5.0); ASPARTATE AMINOTRANSFERASE 20 U/L (15-37); BILIRUBIN,TOTAL 0.2 mg/dL (0.1-1.0); TOTAL PROTEIN, SERUM 8.4 g/dL (6.4-8.2)
[2017-04-26 16:43] LABS: RBC MORPHOLOGY COMMENT ABNORMAL RBC MORPH
[2017-04-26] MEDS ORDERED: CIPROFLOXACIN HCL 250 MG TABLET PO ONE (16:45)
[2017-04-26] MEDS ORDERED: CefTRIAXone 1 GM/DEXTROSE 50 ML IV ONE (16:45)
[2017-04-26] MEDS ORDERED: KETOROLAC TROMETHAMINE 30 MG/ML VIAL IVP ONE (16:45)
[2017-04-26 17:44] VITALS: BP 137/88
== END 2017-04-26 17:46 | disposition home or self-care (01) ==
LOC: EMS 15:00
DX: N39.0 Urinary tract infection, site not specified (principal); F41.9 Anxiety disorder, unspecified; R07.9 Chest pain, unspecified; E78.00 Pure hypercholesterolemia, unspecified; I10 Essential (primary) hypertension; F17.210 Nicotine dependence, cigarettes, uncomplicated; F11.90 Opioid use, unspecified, uncomplicated; F13.90 Sedative, hypnotic, or anxiolytic use, unspecified, uncomplicated; Z87.442 Personal history of urinary calculi; Z88.5 Allergy status to narcotic agent; Z88.0 Allergy status to penicillin
CPT/HCPCS: 36415; 80053; 81001; 84484; 85025; 87077; 87086; 87186; 93005; 96365; 96375; 99285; J0696; J1885

== ENCOUNTER 2017-05-11 07:35 | Emergency (ER) | payer MEDICAID ==
[~2017-05-11] VITALS: Ht 167.6 cm; Wt 63.6 kg
[2017-05-11] MEDS ORDERED: QUEtiapine FUMARATE 25 MG TABLET PO ONE (08:15)
[2017-05-11] MEDS ORDERED: HydrOXYzine HCL 50 MG TABLET PO ONE (08:15)
[2017-05-11 09:14] LABS: APPEARANCE,URINE CLOUDY (CLEAR); GLUCOSE, URINE (UA) NEGATIVE (NEGATIVE); KETONES,URINE NEGATIVE (NEGATIVE); LEUKOCYTE ESTERASE ,URINE LARGE (NEGATIVE); OCCULT BLOOD,URINE SMALL (NEGATIVE); PROTEIN,URINE TRACE (NEGATIVE)
[2017-05-11 09:23] LABS: ADD UA MICROSCOPIC YES
[2017-05-11 09:30] LABS: WBC,URINE >100 /HPF (0-5)
[2017-05-11 09:31] LABS: SQUAMOUS EPITHELIAL CELL,UR Moderate /LPF (None Seen)
[2017-05-11 09:55] VITALS: BP 114/68
== END 2017-05-11 09:58 | disposition home or self-care (01) ==
LOC: EMS 07:37
DX: F41.9 Anxiety disorder, unspecified (principal); N39.0 Urinary tract infection, site not specified; E78.00 Pure hypercholesterolemia, unspecified; I10 Essential (primary) hypertension; F17.210 Nicotine dependence, cigarettes, uncomplicated; F11.90 Opioid use, unspecified, uncomplicated; F13.90 Sedative, hypnotic, or anxiolytic use, unspecified, uncomplicated; Z88.5 Allergy status to narcotic agent; Z88.0 Allergy status to penicillin; Z87.442 Personal history of urinary calculi
CPT/HCPCS: 87086; 99284; 99406

== ENCOUNTER 2017-07-31 10:44 | Emergency (ER) | payer MEDICAID ==
[~2017-07-31] VITALS: Ht 167.6 cm; Wt 63.6 kg
[2017-07-31] MEDS ORDERED: HydrOXYzine HCL 50 MG TABLET PO ONE (11:15)
[2017-07-31] MEDS ORDERED: QUEtiapine FUMARATE 25 MG TABLET PO ONE (11:15)
[2017-07-31] MEDS ORDERED: LORazepam 1 MG TABLET PO ONE (12:15)
[2017-07-31 13:51] VITALS: BP 140/68
== END 2017-07-31 14:24 | disposition home or self-care (01) ==
LOC: EMS 10:47
DX: F41.9 Anxiety disorder, unspecified (principal); E78.00 Pure hypercholesterolemia, unspecified; I10 Essential (primary) hypertension; Z87.442 Personal history of urinary calculi; Z90.710 Acquired absence of both cervix and uterus; F17.210 Nicotine dependence, cigarettes, uncomplicated; F11.90 Opioid use, unspecified, uncomplicated; F13.90 Sedative, hypnotic, or anxiolytic use, unspecified, uncomplicated
CPT/HCPCS: 99284

== ENCOUNTER 2017-08-03 09:49 | Emergency (ER) | payer MEDICAID ==
[~2017-08-03] VITALS: Ht 167.6 cm; Wt 77.3 kg
[2017-08-03] MEDS ORDERED: HYD25 PO (10:04)
[2017-08-03] MEDS ORDERED: CHLO100T24 PO (10:04)
[2017-08-03] MEDS ORDERED: LORazepam 1 MG TABLET PO ONE ×2 (10:15→11:00)
[2017-08-03] MEDS ORDERED: HydrOXYzine PAMOATE 25 MG CAPSULE PO ONE (10:15)
[2017-08-03 12:31] LABS: APPEARANCE,URINE CLOUDY (CLEAR); BILIRUBIN,URINE NEGATIVE (NEGATIVE); GLUCOSE, URINE (UA) NEGATIVE (NEGATIVE); KETONES,URINE NEGATIVE (NEGATIVE); LEUKOCYTE ESTERASE ,URINE MODERATE (NEGATIVE); NITRATE,URINE POSITIVE (NEGATIVE); OCCULT BLOOD,URINE MODERATE (NEGATIVE); PH,URINE 6.5 (5.0-8.0); PROTEIN,URINE NEGATIVE (NEGATIVE); UROBILINOGEN,URINE 0.2 mg/dL (<=1.0)
[2017-08-03 12:42] LABS: BACTERIA,URINE Many /HPF (None Seen); SQUAMOUS EPITHELIAL CELL,UR Few /LPF (None Seen)
[2017-08-03 13:01] VITALS: BP 150/80
== END 2017-08-03 13:03 | disposition home or self-care (01) ==
LOC: EMS 09:50
DX: F41.9 Anxiety disorder, unspecified (principal); E78.00 Pure hypercholesterolemia, unspecified; I10 Essential (primary) hypertension; F17.210 Nicotine dependence, cigarettes, uncomplicated; F13.90 Sedative, hypnotic, or anxiolytic use, unspecified, uncomplicated; F11.90 Opioid use, unspecified, uncomplicated; Z87.442 Personal history of urinary calculi; Z88.5 Allergy status to narcotic agent; Z88.0 Allergy status to penicillin
CPT/HCPCS: 87086; 99284

== ENCOUNTER 2017-08-04 06:56 | Emergency (ER) | payer MEDICAID ==
[~2017-08-04] VITALS: Ht 167.6 cm; Wt 63.6 kg
[~2017-08-04 06:56] MED LIST changes: -AMLO-511 PO; +CHLO100T24 PO; -CIP250 PO; -CLON.1 PO; -DIVA500T35 PO; -FERR-89 PO; +HYD25 PO; -NITR50 PO; -PHEN-857 PO; -PROP10 PO; -QUET25TA PO
[2017-08-04] MEDS ORDERED: LORazepam 1 MG TABLET PO ONE (07:30)
[2017-08-04] MEDS ORDERED: HydrOXYzine HCL 25 MG TABLET PO ONE (07:30)
[2017-08-04] MEDS ORDERED: HydrOXYzine PAMOATE 25 MG CAPSULE PO ONE (08:15)
[2017-08-04 08:27] VITALS: BP 150/71
== END 2017-08-04 08:30 | disposition home or self-care (01) ==
LOC: EMS 06:58
DX: F41.9 Anxiety disorder, unspecified (principal); E78.00 Pure hypercholesterolemia, unspecified; I10 Essential (primary) hypertension; F17.210 Nicotine dependence, cigarettes, uncomplicated; F13.90 Sedative, hypnotic, or anxiolytic use, unspecified, uncomplicated; Z87.442 Personal history of urinary calculi; Z88.5 Allergy status to narcotic agent; Z88.8 Allergy status to other drugs, medicaments and biological substances; Z88.0 Allergy status to penicillin
CPT/HCPCS: 99284

== ENCOUNTER 2017-08-07 06:42 | Inpatient (IN) | payer MEDICARE, MEDICAID ==
[~2017-08-07] VITALS: Ht 167.6 cm; Wt 63.3 kg
[2017-08-07] MEDS ORDERED: LORazepam 2 MG TABLET PO ONE (08:15)
[2017-08-07] MEDS ORDERED: QUEtiapine FUMARATE 25 MG TABLET PO ONE (08:15)
[2017-08-07 08:28] LABS: EOSINOPHILS # (AUTO) 0.02 K/uL (0.00-0.70); EOSINOPHILS % (AUTO) 0.35 % (1.0-6.0); HEMATOCRIT 33.4 % (36-46); HEMOGLOBIN 10.5 g/dL (12.0-16.0); LYMPHOCYTES # (AUTO) 0.7 K/uL (1.0-4.8); LYMPHOCYTES % (AUTO) 12.5 % (22.0-44.0); MEAN CORPUSCULAR HEMOGLOBIN 22.2 pg (26.0-34.0); MEAN CORPUSCULAR HGB CONC 31.3 G/dL (31.0-37.0); MEAN CORPUSCULAR VOLUME 71 fL (80-100); MONOCYTES # (AUTO) 0.2 K/uL (0.1-1.0); MONOCYTES % (AUTO) 3.6 % (2.0-9.0); NEUTROPHILS # (AUTO) 4.6 K/uL (1.8-7.7); NEUTROPHILS % (AUTO) 83.5 % (40.0-70.0); PLATELET COUNT (AUTO) 229 K/uL (150-450); RED BLOOD CELL COUNT(AUTO) 4.71 MIL/uL (4.00-5.20); RED CELL DISTRIBUTION WIDTH 21.5 % (11.5-14.5); WHITE BLOOD COUNT (AUTO) 5.5 K/uL (4.5-11.0)
[2017-08-07 08:38] LABS: ANION GAP 9 mmol/L (8-16); CALCIUM, TOTAL 9.6 mg/dL (8.8-10.5); CARBON DIOXIDE 29 mmol/L (22-29); CHLORIDE 106 mmol/L (98-107); GLOMERULAR FILTR. RATE CALC 55 mL/min (>60); POTASSIUM 3.5 mmol/L (3.5-5.1); SODIUM SERUM 144 mmol/L (136-145); UREA NITROGEN, BLOOD 23 mg/dL (7-18)
[2017-08-07 08:44] LABS: ALANINE AMINOTRANSFERASE 15 U/L (12-78); ALBUMIN 3.5 g/dL (3.4-5.0); ASPARTATE AMINOTRANSFERASE 14 U/L (15-37); BILIRUBIN,TOTAL 0.3 mg/dL (0.1-1.0); TOTAL PROTEIN, SERUM 8.9 g/dL (6.4-8.2)
[2017-08-07 08:47] LABS: RBC MORPHOLOGY COMMENT ABNORMAL RBC MORPH
[2017-08-07 10:35] VITALS: BP 146/75
[2017-08-07] MEDS: HALOPERIDOL 5 MG TABLET PO PRN (11:34)
[2017-08-07] MEDS: LORazepam 2 MG TABLET PO PRN ×2 (11:34→16:07)
[2017-08-07 16:05] VITALS: BP 151/60
[2017-08-07] MEDS: QUEtiapine FUMARATE 25 MG TABLET PO SCH (21:29)
[2017-08-08 04:25] VITALS: BP 145/87
[2017-08-08] MEDS: IBUPROFEN 400 MG TABLET PO PRN (04:29)
[2017-08-08] MEDS: LORazepam 2 MG TABLET PO PRN ×3 (04:29→16:06)
[2017-08-08] MEDS: HALOPERIDOL 5 MG TABLET PO PRN ×2 (05:31→20:41)
[2017-08-08] MEDS: FERROUS SULFATE 325 MG EC TABLET PO SCH ×3 (06:42→19:04)
[2017-08-08 07:14] LABS: HEMOGLOBIN A1C 5.4 % (4.5-6.2)
[2017-08-08 07:42] LABS: THYROID STIMULATING HORMONE 1.04 uIU/mL (0.36-3.74)
[2017-08-08] MEDS: AmLODIPine BESYLATE 5 MG TABLET PO SCH (09:09)
[2017-08-08 09:10] VITALS: BP 150/77
[2017-08-08] MEDS: ACETAMINOPHEN 325 MG TABLET PO PRN (09:12)
[2017-08-08 09:38] VITALS: BP 152/81
[2017-08-08 10:12] VITALS: BP 144/88
[2017-08-08 11:18] LABS: APPEARANCE,URINE CLOUDY (CLEAR); GLUCOSE, URINE (UA) NEGATIVE (NEGATIVE); KETONES,URINE NEGATIVE (NEGATIVE); LEUKOCYTE ESTERASE ,URINE LARGE (NEGATIVE); OCCULT BLOOD,URINE MODERATE (NEGATIVE); PH,URINE 5.5 (5.0-8.0); PROTEIN,URINE NEGATIVE (NEGATIVE)
[2017-08-08 12:35] LABS: ADD UA MICROSCOPIC YES
[2017-08-08 12:39] LABS: RBC,URINE 0-2 /HPF (0-2); SQUAMOUS EPITHELIAL CELL,UR Few /LPF (None Seen); WBC,URINE >100 /HPF (0-5)
[2017-08-08 20:27] VITALS: BP 130/70
[2017-08-08] MEDS: QUEtiapine FUMARATE 25 MG TABLET PO SCH (20:41)
[2017-08-09 03:08] VITALS: BP 128/83
[2017-08-09] MEDS: LORazepam 2 MG TABLET PO PRN ×3 (03:11→16:24)
[2017-08-09] MEDS: FERROUS SULFATE 325 MG EC TABLET PO SCH ×3 (07:36→16:24)
[2017-08-09 08:06] VITALS: BP 152/87
[2017-08-09] MEDS: IBUPROFEN 400 MG TABLET PO PRN ×2 (08:11→16:24)
[2017-08-09] MEDS: CIPROFLOXACIN HCL 250 MG TABLET PO SCH ×2 (08:12→16:24)
[2017-08-09] MEDS: AmLODIPine BESYLATE 5 MG TABLET PO SCH (08:12)
[2017-08-09 09:06] VITALS: BP 148/71
[2017-08-09] MEDS: HALOPERIDOL 5 MG TABLET PO PRN (09:35)
[2017-08-09 11:12] VITALS: BP 151/92
[2017-08-09 16:26] VITALS: BP 141/74
[2017-08-09] MEDS: QUEtiapine FUMARATE 25 MG TABLET PO SCH (22:03)
[2017-08-10 03:40] VITALS: BP 149/86
[2017-08-10] MEDS: HALOPERIDOL 5 MG TABLET PO PRN ×2 (03:43→08:16)
[2017-08-10] MEDS: LORazepam 2 MG TABLET PO PRN ×4 (03:43→20:07)
[2017-08-10] MEDS: FERROUS SULFATE 325 MG EC TABLET PO SCH ×3 (06:43→16:27)
[2017-08-10] MEDS: CIPROFLOXACIN HCL 250 MG TABLET PO SCH ×2 (08:17→16:26)
[2017-08-10] MEDS: AmLODIPine BESYLATE 5 MG TABLET PO SCH (08:17)
[2017-08-10 09:54] VITALS: BP 132/66
[2017-08-10 16:24] VITALS: BP 136/78
[2017-08-10] MEDS: IBUPROFEN 400 MG TABLET PO PRN (16:27)
[2017-08-10] MEDS: QUEtiapine FUMARATE 25 MG TABLET PO SCH (20:07)
[2017-08-11] MEDS: ZOLPIDEM TARTRATE 10 MG TABLET PO PRN ×2 (02:51→22:30)
[2017-08-11 03:25] VITALS: BP 143/93
[2017-08-11] MEDS: LORazepam 2 MG TABLET PO PRN ×3 (04:45→16:18)
[2017-08-11] MEDS: FERROUS SULFATE 325 MG EC TABLET PO SCH ×3 (06:18→18:08)
[2017-08-11 06:45] VITALS: BP 147/89
[2017-08-11 07:30] VITALS: BP 147/89
[2017-08-11] MEDS: CIPROFLOXACIN HCL 250 MG TABLET PO SCH ×2 (09:05→16:18)
[2017-08-11] MEDS: AmLODIPine BESYLATE 5 MG TABLET PO SCH (09:06)
[2017-08-11 09:07] VITALS: BP 136/77
[2017-08-11] MEDS: IBUPROFEN 400 MG TABLET PO PRN (09:07)
[2017-08-11 09:41] VITALS: BP 134/71
[2017-08-11] MEDS: HALOPERIDOL 5 MG TABLET PO PRN (10:43)
[2017-08-11 17:45] VITALS: BP 140/82
[2017-08-11] MEDS: TraZODone HCL 50 MG TABLET PO SCH (21:18)
[2017-08-11] MEDS: QUEtiapine FUMARATE 25 MG TABLET PO SCH (21:18)
[2017-08-12 02:25] VITALS: BP 161/80
[2017-08-12] MEDS: LORazepam 2 MG TABLET PO PRN ×3 (02:27→12:54)
[2017-08-12] MEDS: FERROUS SULFATE 325 MG EC TABLET PO SCH ×3 (07:06→17:26)
[2017-08-12] MEDS: AmLODIPine BESYLATE 5 MG TABLET PO SCH (08:51)
[2017-08-12] MEDS: CIPROFLOXACIN HCL 250 MG TABLET PO SCH ×2 (08:51→16:06)
[2017-08-12] MEDS: HALOPERIDOL 5 MG TABLET PO PRN ×2 (08:54→12:54)
[2017-08-12 09:38] VITALS: BP 141/72
[2017-08-12] MEDS: ACETAMINOPHEN 325 MG TABLET PO PRN (12:52)
[2017-08-12] MEDS ORDERED: BISACODYL 5 MG EC TABLET PO PRN (13:30)
[2017-08-12 16:03] VITALS: BP 140/78
[2017-08-12] MEDS: IBUPROFEN 400 MG TABLET PO PRN (16:04)
[2017-08-12] MEDS: QUEtiapine FUMARATE 25 MG TABLET PO SCH (20:25)
[2017-08-12] MEDS: TraZODone HCL 50 MG TABLET PO SCH (20:26)
[2017-08-13 02:28] VITALS: BP 146/69
[2017-08-13] MEDS: IBUPROFEN 400 MG TABLET PO PRN (02:30)
[2017-08-13] MEDS: LORazepam 1 MG TABLET PO PRN ×2 (04:24→10:38)
[2017-08-13] MEDS: FERROUS SULFATE 325 MG EC TABLET PO SCH ×3 (06:53→17:00)
[2017-08-13 08:00] VITALS: BP 146/90
[2017-08-13] MEDS: AmLODIPine BESYLATE 5 MG TABLET PO SCH (08:11)
[2017-08-13] MEDS: CIPROFLOXACIN HCL 250 MG TABLET PO SCH ×2 (08:11→17:00)
[2017-08-13 17:05] VITALS: BP 134/77
[2017-08-13] MEDS: QUEtiapine FUMARATE 25 MG TABLET PO SCH (20:02)
[2017-08-13] MEDS: TraZODone HCL 50 MG TABLET PO SCH (20:02)
[2017-08-13] MEDS: ZOLPIDEM TARTRATE 10 MG TABLET PO PRN (21:17)
[2017-08-14 04:14] VITALS: BP 146/77
[2017-08-14] MEDS: IBUPROFEN 400 MG TABLET PO PRN (04:15)
[2017-08-14] MEDS: FERROUS SULFATE 325 MG EC TABLET PO SCH ×3 (06:40→17:28)
[2017-08-14] MEDS: LORazepam 1 MG TABLET PO PRN ×2 (07:55→16:11)
[2017-08-14 08:00] VITALS: BP 153/80
[2017-08-14] MEDS: AmLODIPine BESYLATE 5 MG TABLET PO SCH (08:11)
[2017-08-14] MEDS: CIPROFLOXACIN HCL 250 MG TABLET PO SCH ×2 (08:11→16:12)
[2017-08-14] MEDS: ACETAMINOPHEN 325 MG TABLET PO PRN (14:29)
[2017-08-14 16:30] VITALS: BP 105/81
[2017-08-14] MEDS: TraZODone HCL 50 MG TABLET PO SCH (20:11)
[2017-08-14] MEDS: QUEtiapine FUMARATE 25 MG TABLET PO SCH (20:11)
[2017-08-14] MEDS: ZOLPIDEM TARTRATE 10 MG TABLET PO PRN (21:39)
[2017-08-15 03:12] VITALS: BP 152/92
[2017-08-15] MEDS: IBUPROFEN 400 MG TABLET PO PRN ×2 (03:15→16:11)
[2017-08-15] MEDS: FERROUS SULFATE 325 MG EC TABLET PO SCH ×3 (06:59→18:50)
[2017-08-15] MEDS: ACETAMINOPHEN 325 MG TABLET PO PRN (07:44)
[2017-08-15 08:00] VITALS: BP 146/93
[2017-08-15] MEDS: CIPROFLOXACIN HCL 250 MG TABLET PO SCH ×2 (08:28→16:11)
[2017-08-15] MEDS: AmLODIPine BESYLATE 5 MG TABLET PO SCH (08:28)
[2017-08-15] MEDS: LORazepam 1 MG TABLET PO PRN (16:11)
[2017-08-15 16:13] VITALS: BP 139/78
[2017-08-15] MEDS: TraZODone HCL 50 MG TABLET PO SCH (20:08)
[2017-08-15] MEDS: QUEtiapine FUMARATE 25 MG TABLET PO SCH (20:09)
[2017-08-15] MEDS: ZOLPIDEM TARTRATE 10 MG TABLET PO PRN (20:22)
[2017-08-16] MEDS: LORazepam 1 MG TABLET PO PRN ×3 (04:12→13:06)
[2017-08-16] MEDS: FERROUS SULFATE 325 MG EC TABLET PO SCH ×2 (06:33→11:59)
[2017-08-16 08:15] VITALS: BP 149/80
[2017-08-16] MEDS: AmLODIPine BESYLATE 5 MG TABLET PO SCH (09:07)
[2017-08-16] MEDS: HALOPERIDOL 5 MG TABLET PO PRN ×2 (09:08→13:06)
[2017-08-16] MEDS ORDERED: AMLO-511 PO (10:10)
[2017-08-16] MEDS ORDERED: FERR-89 PO (10:11)
[2017-08-16] MEDS ORDERED: QUET25TA PO (10:11)
[2017-08-16] MEDS ORDERED: TRAZ-144 PO (10:11)
== END 2017-08-16 13:40 | disposition home or self-care (01) | DRG 750 ==
LOC: EMS 06:43 → 3EI 09:05
PROVIDERS: ADMIT Psychiatry & Neurology Psychiatry; ATTEND Psychiatry & Neurology Psychiatry
DX: F25.9 Schizoaffective disorder, unspecified (principal); R45.851 Suicidal ideations; E11.9 Type 2 diabetes mellitus without complications; I10 Essential (primary) hypertension; D64.9 Anemia, unspecified; N39.0 Urinary tract infection, site not specified; F40.10 Social phobia, unspecified; F17.210 Nicotine dependence, cigarettes, uncomplicated; E78.00 Pure hypercholesterolemia, unspecified; G47.00 Insomnia, unspecified; M19.90 Unspecified osteoarthritis, unspecified site; W18.30XA Fall on same level, unspecified, initial encounter; F31.9 Bipolar disorder, unspecified; Z87.442 Personal history of urinary calculi; Z96.649 Presence of unspecified artificial hip joint; G89.29 Other chronic pain; M54.9 Dorsalgia, unspecified; Z88.5 Allergy status to narcotic agent; Z88.0 Allergy status to penicillin; Z90.49 Acquired absence of other specified parts of digestive tract; Z71.6 Tobacco abuse counseling
CPT/HCPCS: 80307; 83036; 84443; 87086; 99285; G0480

== ENCOUNTER 2017-08-27 09:15 | Emergency (ER) | payer MEDICARE, MEDICAID ==
[~2017-08-27] VITALS: Ht 167.6 cm; Wt 63.0 kg
[~2017-08-27 09:15] MED LIST changes: +AMLO-511 PO; -CHLO100T24 PO; +FERR-89 PO; -HYD25 PO; +QUET25TA PO; +TRAZ-144 PO
[2017-08-27] MEDS ORDERED: HydrOXYzine HCL 25 MG TABLET PO ONE (10:30)
[2017-08-27 11:12] VITALS: BP 132/74
== END 2017-08-27 11:30 | disposition home or self-care (01) ==
LOC: EMS 09:17
DX: F41.9 Anxiety disorder, unspecified (principal); E78.00 Pure hypercholesterolemia, unspecified; I10 Essential (primary) hypertension; F17.210 Nicotine dependence, cigarettes, uncomplicated; F13.90 Sedative, hypnotic, or anxiolytic use, unspecified, uncomplicated; Z76.0 Encounter for issue of repeat prescription; Z88.5 Allergy status to narcotic agent; Z88.0 Allergy status to penicillin
CPT/HCPCS: 99284

== ENCOUNTER 2017-09-04 10:18 | Emergency (ER) | payer MEDICARE, MEDICAID ==
[~2017-09-04] VITALS: Ht 167.6 cm; Wt 63.6 kg
[2017-09-04 13:47] VITALS: BP 138/72
== END 2017-09-04 13:51 | disposition home or self-care (01) ==
LOC: EMS 10:20
DX: F25.9 Schizoaffective disorder, unspecified (principal); K59.00 Constipation, unspecified; E78.00 Pure hypercholesterolemia, unspecified; I10 Essential (primary) hypertension; F19.10 Other psychoactive substance abuse, uncomplicated; F17.210 Nicotine dependence, cigarettes, uncomplicated; Z87.442 Personal history of urinary calculi; Z88.0 Allergy status to penicillin; Z90.710 Acquired absence of both cervix and uterus; Z88.8 Allergy status to other drugs, medicaments and biological substances
CPT/HCPCS: 99284

== ENCOUNTER 2017-09-11 08:27 | Emergency (ER) | payer MEDICARE, MEDICAID ==
[~2017-09-11] VITALS: Ht 167.6 cm; Wt 63.6 kg
[2017-09-11] MEDS ORDERED: ESCI20TA PO (08:38)
[2017-09-11] MEDS ORDERED: CHLO100T24 PO ×2 (08:38)
[2017-09-11] MEDS ORDERED: MIRT30 PO (08:38)
[2017-09-11] MEDS ORDERED: BUSP15 PO (08:38)
[2017-09-11] MEDS ORDERED: NITR100C13 PO (08:38)
[2017-09-11] MEDS ORDERED: HYDR-4031 PO (08:38)
[2017-09-11 09:42] VITALS: BP 139/71
== END 2017-09-11 09:43 | disposition home or self-care (01) ==
LOC: EMS 08:29
DX: F41.9 Anxiety disorder, unspecified (principal); E78.00 Pure hypercholesterolemia, unspecified; I10 Essential (primary) hypertension; F17.210 Nicotine dependence, cigarettes, uncomplicated; F19.90 Other psychoactive substance use, unspecified, uncomplicated; Z88.0 Allergy status to penicillin; Z88.8 Allergy status to other drugs, medicaments and biological substances
CPT/HCPCS: 99284

== ENCOUNTER 2017-09-11 11:05 | Emergency (ER) | payer MEDICARE, MEDICAID ==
[~2017-09-11] VITALS: Ht 167.6 cm; Wt 61.8 kg
[~2017-09-11 11:05] MED LIST changes: +BUSP15 PO; +CHLO100T24 PO; +ESCI20TA PO; +HYDR-4031 PO; +MIRT30 PO; +NITR100C13 PO
[2017-09-11 11:22] VITALS: BP 126/78
[2017-09-11] MEDS ORDERED: ACETAMINOPHEN 500 MG TABLET PO ONE (11:30)
== END 2017-09-11 11:29 | disposition home or self-care (01) ==
LOC: EMS 11:07
DX: F41.9 Anxiety disorder, unspecified (principal); S16.1XXA Strain of muscle, fascia and tendon at neck level, initial encounter; I10 Essential (primary) hypertension; E78.00 Pure hypercholesterolemia, unspecified; F19.90 Other psychoactive substance use, unspecified, uncomplicated; Z88.0 Allergy status to penicillin; Z88.8 Allergy status to other drugs, medicaments and biological substances; W18.39XA Other fall on same level, initial encounter; Y93.89 Activity, other specified; Y92.89 Other specified places as the place of occurrence of the external cause; Y99.8 Other external cause status
CPT/HCPCS: 99283

== ENCOUNTER 2017-09-16 07:41 | Emergency (ER) | payer MEDICARE, MEDICAID ==
[~2017-09-16] VITALS: Ht 167.6 cm; Wt 59.1 kg
[2017-09-16 09:28] VITALS: BP 151/75
[2017-09-16] MEDS ORDERED: LORazepam 1 MG TABLET PO ONE (09:30)
== END 2017-09-16 11:07 | disposition home or self-care (01) ==
LOC: EMS 07:43
DX: F41.9 Anxiety disorder, unspecified (principal); I10 Essential (primary) hypertension; E78.00 Pure hypercholesterolemia, unspecified; F17.210 Nicotine dependence, cigarettes, uncomplicated; F19.90 Other psychoactive substance use, unspecified, uncomplicated; Z88.1 Allergy status to other antibiotic agents; Z88.8 Allergy status to other drugs, medicaments and biological substances
CPT/HCPCS: 99284

== ENCOUNTER 2017-09-19 09:09 | Emergency (ER) | payer MEDICARE, MEDICAID ==
[~2017-09-19] VITALS: Ht 167.6 cm; Wt 59.1 kg
[2017-09-19 10:25] LABS: EOSINOPHILS # (AUTO) 0.06 K/uL (0.00-0.70); EOSINOPHILS % (AUTO) 1.72 % (1.0-6.0); HEMOGLOBIN 10.3 g/dL (12.0-16.0); LYMPHOCYTES # (AUTO) 1.1 K/uL (1.0-4.8); LYMPHOCYTES % (AUTO) 32.4 % (22.0-44.0); MEAN CORPUSCULAR HEMOGLOBIN 22.7 pg (26.0-34.0); MEAN CORPUSCULAR HGB CONC 31.2 G/dL (31.0-37.0); MEAN CORPUSCULAR VOLUME 73 fL (80-100); MONOCYTES # (AUTO) 0.3 K/uL (0.1-1.0); MONOCYTES % (AUTO) 9.2 % (2.0-9.0); NEUTROPHILS % (AUTO) 56.7 % (40.0-70.0); PLATELET COUNT (AUTO) 192 K/uL (150-450); RED BLOOD CELL COUNT(AUTO) 4.54 MIL/uL (4.00-5.20); RED CELL DISTRIBUTION WIDTH 21.2 % (11.5-14.5); WHITE BLOOD COUNT (AUTO) 3.5 K/uL (4.5-11.0)
[2017-09-19 10:37] LABS: CALCIUM, TOTAL 9.3 mg/dL (8.8-10.5); CREATININE 1.19 mg/dL (0.60-1.30); POTASSIUM 3.7 mmol/L (3.5-5.1)
[2017-09-19 10:43] LABS: BILIRUBIN,TOTAL 0.1 mg/dL (0.1-1.0); TOTAL PROTEIN, SERUM 7.6 g/dL (6.4-8.2)
[2017-09-19] MEDS ORDERED: LORazepam 1 MG TABLET PO ONE (10:45)
[2017-09-19 11:16] LABS: RBC MORPHOLOGY COMMENT ABNORMAL RBC MORPH
[2017-09-19 11:40] LABS: APPEARANCE,URINE CLOUDY (CLEAR); GLUCOSE, URINE (UA) NEGATIVE (NEGATIVE); KETONES,URINE NEGATIVE (NEGATIVE); OCCULT BLOOD,URINE SMALL (NEGATIVE); PH,URINE 5.5 (5.0-8.0); PROTEIN,URINE NEGATIVE (NEGATIVE)
[2017-09-19 11:52] LABS: ADD UA MICROSCOPIC YES; LEUKOCYTE ESTERASE ,URINE MODERATE (NEGATIVE)
[2017-09-19 11:53] LABS: SQUAMOUS EPITHELIAL CELL,UR Moderate /LPF (None Seen); WBC,URINE 26-50 /HPF (0-5)
[2017-09-19] MEDS ORDERED: NITROFURANTOIN/NITROFURAN MAC 100 MG CAPSULE [MACROBID] PO ONE (12:30)
[2017-09-19 12:40] VITALS: BP 130/86
== END 2017-09-19 13:18 | disposition home or self-care (01) ==
LOC: EMS 09:10
DX: F41.9 Anxiety disorder, unspecified (principal); N39.0 Urinary tract infection, site not specified; I10 Essential (primary) hypertension; E78.00 Pure hypercholesterolemia, unspecified; F17.210 Nicotine dependence, cigarettes, uncomplicated; F19.90 Other psychoactive substance use, unspecified, uncomplicated; Z88.0 Allergy status to penicillin; Z88.8 Allergy status to other drugs, medicaments and biological substances
CPT/HCPCS: 87086; 99284; 99406

== ENCOUNTER 2017-09-24 11:26 | Emergency (ER) | payer MEDICARE, MEDICAID ==
[~2017-09-24] VITALS: Ht 167.6 cm; Wt 140.0 kg
[2017-09-24] MEDS ORDERED: LORazepam 2 MG/ML VIAL IM ONE (13:30)
[2017-09-24 14:39] VITALS: BP 125/69
== END 2017-09-24 14:42 | disposition home or self-care (01) ==
LOC: EMS 11:29
DX: F41.9 Anxiety disorder, unspecified (principal); I10 Essential (primary) hypertension; F20.9 Schizophrenia, unspecified; E78.00 Pure hypercholesterolemia, unspecified; F17.210 Nicotine dependence, cigarettes, uncomplicated; F13.90 Sedative, hypnotic, or anxiolytic use, unspecified, uncomplicated; Z87.442 Personal history of urinary calculi; Z88.5 Allergy status to narcotic agent; Z88.0 Allergy status to penicillin
CPT/HCPCS: 96372; 99284; 99406; J2060

== ENCOUNTER 2017-10-07 11:04 | Emergency (ER) | payer MEDICARE, MEDICAID ==
[~2017-10-07] VITALS: Ht 167.6 cm; Wt 63.6 kg
[2017-10-07 13:30] VITALS: BP 148/82
[2017-10-07 13:34] LABS: BASOPHILS # (AUTO) 0.01 K/uL (0.00-0.20); BASOPHILS % (AUTO) 0.3 % (0.0-2.0); EOSINOPHILS # (AUTO) 0.01 K/uL (0.00-0.70); EOSINOPHILS % (AUTO) 0.22 % (1.0-6.0); HEMATOCRIT 35.4 % (36-46); HEMOGLOBIN 10.9 g/dL (12.0-16.0); LYMPHOCYTES % (AUTO) 43.6 % (22.0-44.0); MEAN CORPUSCULAR HEMOGLOBIN 22.1 pg (26.0-34.0); MEAN CORPUSCULAR HGB CONC 30.7 G/dL (31.0-37.0); MEAN CORPUSCULAR VOLUME 72 fL (80-100); MONOCYTES # (AUTO) 0.3 K/uL (0.1-1.0); MONOCYTES % (AUTO) 6.4 % (2.0-9.0); NEUTROPHILS # (AUTO) 2.2 K/uL (1.8-7.7); NEUTROPHILS % (AUTO) 49.5 % (40.0-70.0); PLATELET COUNT (AUTO) 304 K/uL (150-450); RED CELL DISTRIBUTION WIDTH 18.1 % (11.5-14.5)
[2017-10-07 14:07] LABS: CALCIUM, TOTAL 9.4 mg/dL (8.8-10.5); CREATININE 1.19 mg/dL (0.60-1.30); POTASSIUM 3.9 mmol/L (3.5-5.1)
[2017-10-07 14:21] LABS: ALBUMIN 3.3 g/dL (3.4-5.0); BILIRUBIN,TOTAL 0.2 mg/dL (0.1-1.0); TOTAL PROTEIN, SERUM 8.5 g/dL (6.4-8.2)
== END 2017-10-07 14:02 | disposition home or self-care (01) ==
LOC: EMS 11:04
DX: R10.30 Lower abdominal pain, unspecified (principal); R11.2 Nausea with vomiting, unspecified; R19.7 Diarrhea, unspecified; I10 Essential (primary) hypertension; E78.00 Pure hypercholesterolemia, unspecified; F19.90 Other psychoactive substance use, unspecified, uncomplicated; F17.210 Nicotine dependence, cigarettes, uncomplicated; Z88.0 Allergy status to penicillin; Z88.8 Allergy status to other drugs, medicaments and biological substances
CPT/HCPCS: 99284

== ENCOUNTER 2017-10-08 07:00 | Emergency (ER) | payer MEDICARE, MEDICAID ==
[~2017-10-08] VITALS: Ht 167.6 cm; Wt 63.6 kg
[2017-10-08] MEDS ORDERED: QUEtiapine FUMARATE 25 MG TABLET PO ONE (08:30)
[2017-10-08 09:28] VITALS: BP 141/78
== END 2017-10-08 09:38 | disposition home or self-care (01) ==
LOC: EMS 07:02
DX: F41.9 Anxiety disorder, unspecified (principal); E78.00 Pure hypercholesterolemia, unspecified; I10 Essential (primary) hypertension; F20.9 Schizophrenia, unspecified; F17.210 Nicotine dependence, cigarettes, uncomplicated; Z87.442 Personal history of urinary calculi; Z88.0 Allergy status to penicillin; Z88.8 Allergy status to other drugs, medicaments and biological substances; Z79.899 Other long term (current) drug therapy
CPT/HCPCS: 99284

== ENCOUNTER 2017-10-17 09:08 | Inpatient (IN) | payer MEDICARE, MEDICAID ==
[~2017-10-17] VITALS: Ht 167.6 cm; Wt 61.4 kg
[2017-10-17] MEDS ORDERED: QUEtiapine FUMARATE 25 MG TABLET PO ONE (10:00)
[2017-10-17] MEDS ORDERED: HydrOXYzine PAMOATE 50 MG CAPSULE PO ONE (10:00)
[2017-10-17 10:07] LABS: EOSINOPHILS % (AUTO) 0.5 % (1.0-6.0); HEMATOCRIT 35.8 % (36-46); HEMOGLOBIN 11.3 g/dL (12.0-16.0); LYMPHOCYTES # (AUTO) 0.9 K/uL (1.0-4.8); LYMPHOCYTES % (AUTO) 18.9 % (22.0-44.0); MEAN CORPUSCULAR HEMOGLOBIN 22.7 pg (26.0-34.0); MEAN CORPUSCULAR HGB CONC 31.7 G/dL (31.0-37.0); MEAN CORPUSCULAR VOLUME 72 fL (80-100); MONOCYTES # (AUTO) 0.2 K/uL (0.1-1.0); MONOCYTES % (AUTO) 3.9 % (2.0-9.0); NEUTROPHILS # (AUTO) 3.8 K/uL (1.8-7.7); NEUTROPHILS % (AUTO) 76.7 % (40.0-70.0); PLATELET COUNT (AUTO) 224 K/uL (150-450); RED BLOOD CELL COUNT(AUTO) 4.99 MIL/uL (4.00-5.20); RED CELL DISTRIBUTION WIDTH 17.5 % (11.5-14.5)
[2017-10-17 10:18] LABS: ANION GAP 7 mmol/L (8-16); CALCIUM, TOTAL 9.9 mg/dL (8.8-10.5); CARBON DIOXIDE 31 mmol/L (22-29); CHLORIDE 101 mmol/L (98-107); CREATININE 1.31 mg/dL (0.60-1.30); GLOMERULAR FILTR. RATE CALC 49 mL/min (>60); GLUCOSE,RANDOM 110 mg/dL (70-110); POTASSIUM 3.8 mmol/L (3.5-5.1); SODIUM SERUM 139 mmol/L (136-145); UREA NITROGEN, BLOOD 24 mg/dL (7-18)
[2017-10-17 10:24] LABS: ALANINE AMINOTRANSFERASE 15 U/L (12-78); ALBUMIN 3.6 g/dL (3.4-5.0); ALKALINE PHOSPHATASE 101 U/L (46-116); ASPARTATE AMINOTRANSFERASE 17 U/L (15-37); BILIRUBIN,TOTAL 0.2 mg/dL (0.1-1.0)
[2017-10-17] MEDS ORDERED: ZOLPIDEM TARTRATE 10 MG TABLET PO PRN (10:30)
[2017-10-17 11:49] LABS: AMPHET/METH SCREEN,URINE NEGATIVE (NEGATIVE); BARBITURATE SCREEN, URINE NEGATIVE (NEGATIVE); BENZODIAZEPINES SCREEN,URINE NEGATIVE (NEGATIVE); CANNABINOID SCREEN,URINE NEGATIVE (NEGATIVE); COCAINE SCREEN,URINE NEGATIVE (NEGATIVE); METHADONE SCREEN, URINE NEGATIVE (NEGATIVE); OPIATE SCREEN,URINE POSITIVE (NEGATIVE)
[2017-10-17 11:51] LABS: PHENCYCLIDINE SCREEN,URINE NEGATIVE (NEGATIVE)
[2017-10-17] MEDS: LORazepam 1 MG TABLET PO PRN ×3 (12:56→22:48)
[2017-10-17 13:50] VITALS: BP 159/81
[2017-10-17] MEDS: IBUPROFEN 400 MG TABLET PO PRN (14:20)
[2017-10-17] MEDS ORDERED: INFLUENZA VIRUS VACCINE QVS 2017-18 (3YR+)/PF 60 MCG/0.5 ML SYRINGE IM ONE (14:45)
[2017-10-17 16:00] VITALS: BP_SYST 131; BP_SYST 141; BP_DIAS 74; BP_DIAS 96
[2017-10-17] MEDS: CIPROFLOXACIN HCL 500 MG TABLET PO SCH (16:00)
[2017-10-17] MEDS ORDERED: CEPHALEXIN MONOHYDRATE 500 MG CAPSULE PO SCH (17:00)
[2017-10-17] MEDS: QUEtiapine FUMARATE 25 MG TABLET PO SCH (20:19)
[2017-10-17] MEDS: TraZODone HCL 50 MG TABLET PO SCH (20:19)
[2017-10-18] MEDS ORDERED: PNEUMOCOCCAL VACCINE POLYVALENT 0.5 ML VIAL [PPSV23] IM ONE (01:15)
[2017-10-18 05:54] VITALS: BP 148/76
[2017-10-18] MEDS: HALOPERIDOL 5 MG TABLET PO PRN (05:57)
[2017-10-18] MEDS: LORazepam 1 MG TABLET PO PRN ×5 (05:57→19:36)
[2017-10-18] MEDS: IBUPROFEN 400 MG TABLET PO PRN ×2 (07:58→16:05)
[2017-10-18 09:24] VITALS: BP 147/90
[2017-10-18] MEDS: CIPROFLOXACIN HCL 500 MG TABLET PO SCH ×2 (09:51→16:04)
[2017-10-18] MEDS: NICOTINE 7 MG/24 HOUR PATCH TD SCH (09:51)
[2017-10-18 13:10] VITALS: BP 178/105
[2017-10-18] MEDS: ACETAMINOPHEN 325 MG TABLET PO PRN (13:12)
[2017-10-18 14:15] VITALS: BP 142/99
[2017-10-18 16:05] VITALS: BP 142/88
[2017-10-18] MEDS: TraZODone HCL 50 MG TABLET PO SCH (20:05)
[2017-10-18] MEDS: QUEtiapine FUMARATE 25 MG TABLET PO SCH (20:06)
[2017-10-19] MEDS: ONDANSETRON HCL 4 MG TABLET PO PRN (02:42)
[2017-10-19] MEDS: LORazepam 1 MG TABLET PO PRN ×5 (02:42→17:35)
[2017-10-19 03:11] VITALS: BP 137/86
[2017-10-19] MEDS: HALOPERIDOL 5 MG TABLET PO PRN (03:22)
[2017-10-19 05:40] VITALS: BP 140/86
[2017-10-19] MEDS: MAG HYDROX/AL HYDROX/SIMETH 30 ML SUSP UDCUP PO PRN (07:35)
[2017-10-19] MEDS ORDERED: CloNIDine HCL 0.1 MG TABLET PO PRN (08:00)
[2017-10-19] MEDS: AmLODIPine BESYLATE 5 MG TABLET PO SCH (08:12)
[2017-10-19] MEDS: CIPROFLOXACIN HCL 500 MG TABLET PO SCH ×2 (08:12→16:11)
[2017-10-19] MEDS: ACETAMINOPHEN 325 MG TABLET PO PRN ×3 (08:13→20:23)
[2017-10-19] MEDS: NICOTINE 7 MG/24 HOUR PATCH TD SCH (08:14)
[2017-10-19 08:44] VITALS: BP 146/80
[2017-10-19] MEDS: IBUPROFEN 600 MG TABLET PO PRN (15:34)
[2017-10-19 16:00] VITALS: BP 140/84
[2017-10-19] MEDS: QUEtiapine FUMARATE 25 MG TABLET PO SCH (20:13)
[2017-10-19] MEDS: TraZODone HCL 50 MG TABLET PO SCH (20:14)
[2017-10-19 20:22] VITALS: BP 135/82
[2017-10-19 21:08] VITALS: BP 130/70
[2017-10-20 02:35] VITALS: BP 129/85
[2017-10-20] MEDS: IBUPROFEN 600 MG TABLET PO PRN ×2 (02:36→09:14)
[2017-10-20] MEDS: HALOPERIDOL 5 MG TABLET PO PRN (03:33)
[2017-10-20] MEDS: LORazepam 1 MG TABLET PO PRN ×2 (03:33→10:15)
[2017-10-20] MEDS: ACETAMINOPHEN 325 MG TABLET PO PRN ×2 (06:30→15:35)
[2017-10-20] MEDS: MAG HYDROX/AL HYDROX/SIMETH 30 ML SUSP UDCUP PO PRN (06:30)
[2017-10-20] MEDS: ONDANSETRON HCL 4 MG TABLET PO PRN (06:49)
[2017-10-20 07:45] VITALS: BP 160/82
[2017-10-20 08:15] VITALS: BP 143/83
[2017-10-20] MEDS: AmLODIPine BESYLATE 5 MG TABLET PO SCH (08:20)
[2017-10-20] MEDS: CIPROFLOXACIN HCL 500 MG TABLET PO SCH (08:20)
[2017-10-20] MEDS: NICOTINE 7 MG/24 HOUR PATCH TD SCH (08:21)
[2017-10-20] MEDS ORDERED: BISACODYL 10 MG RECTAL RECTAL SUPPOSITORY PR SCH (09:00)
[2017-10-20] MEDS ORDERED: POLYETHYLENE GLYCOL 3350 17 GM PACKET PO SCH (09:00)
[2017-10-20 11:32] VITALS: BP 130/77
[2017-10-20] MEDS ORDERED: BISA10S PR (13:55)
[2017-10-20] MEDS ORDERED: MIRALAX PO (13:55)
[2017-10-20] MEDS ORDERED: CIPR-278 PO (13:55)
== END 2017-10-20 16:40 | disposition home or self-care (01) | DRG 750 ==
LOC: EMS 09:10 → B2S 11:07 → AHU 11:07
PROVIDERS: ADMIT Psychiatry & Neurology Psychiatry; ATTEND Psychiatry & Neurology Psychiatry
DX: F25.9 Schizoaffective disorder, unspecified (principal); I12.9 Hypertensive chronic kidney disease with stage 1 through stage 4 chronic kidney disease, or unspecified chronic kidney disease; F13.10 Sedative, hypnotic or anxiolytic abuse, uncomplicated; D64.9 Anemia, unspecified; F17.200 Nicotine dependence, unspecified, uncomplicated; Z28.21 Immunization not carried out because of patient refusal; E78.00 Pure hypercholesterolemia, unspecified; F31.9 Bipolar disorder, unspecified; F41.9 Anxiety disorder, unspecified; G89.29 Other chronic pain; M19.90 Unspecified osteoarthritis, unspecified site; N18.9 Chronic kidney disease, unspecified; N39.0 Urinary tract infection, site not specified; Z86.73 Personal history of transient ischemic attack (TIA), and cerebral infarction without residual deficits; Z87.442 Personal history of urinary calculi; Z90.710 Acquired absence of both cervix and uterus; Z96.649 Presence of unspecified artificial hip joint; Z88.0 Allergy status to penicillin; Z88.8 Allergy status to other drugs, medicaments and biological substances; Z71.6 Tobacco abuse counseling
CPT/HCPCS: 99285; G0480; Q0162

== ENCOUNTER 2017-10-19 09:27 | Emergency (ER) | payer MEDICARE, MEDICAID ==
[~2017-10-19] VITALS: Ht 167.6 cm; Wt 61.3 kg
[2017-10-19] MEDS ORDERED: CloNIDine HCL 0.1 MG TABLET PO ONE (10:15)
[2017-10-19] MEDS ORDERED: HydrOXYzine PAMOATE 25 MG CAPSULE PO ONE (10:30)
[2017-10-19 10:57] LABS: HEMATOCRIT 34.8 % (36-46); HEMOGLOBIN 10.8 g/dL (12.0-16.0); MEAN CORPUSCULAR HEMOGLOBIN 22.6 pg (26.0-34.0); MEAN CORPUSCULAR HGB CONC 31.1 G/dL (31.0-37.0); MEAN CORPUSCULAR VOLUME 73 fL (80-100); PLATELET COUNT (AUTO) 163 K/uL (150-450); RED BLOOD CELL COUNT(AUTO) 4.79 MIL/uL (4.00-5.20); RED CELL DISTRIBUTION WIDTH 16.9 % (11.5-14.5)
[2017-10-19 10:59] LABS: CALCIUM, TOTAL 9.4 mg/dL (8.8-10.5); CREATININE 1.31 mg/dL (0.60-1.30)
[2017-10-19 11:02] LABS: APPEARANCE,URINE CLOUDY (CLEAR); BILIRUBIN,URINE NEGATIVE (NEGATIVE); GLUCOSE, URINE (UA) NEGATIVE (NEGATIVE); KETONES,URINE NEGATIVE (NEGATIVE); LEUKOCYTE ESTERASE ,URINE SMALL (NEGATIVE); NITRATE,URINE NEGATIVE (NEGATIVE); OCCULT BLOOD,URINE LARGE (NEGATIVE); PH,URINE 6.5 (5.0-8.0); PROTEIN,URINE SEE CONFIRM (NEGATIVE); UROBILINOGEN,URINE 0.2 mg/dL (<=1.0)
[2017-10-19 11:05] LABS: ALBUMIN 3.5 g/dL (3.4-5.0); BILIRUBIN,TOTAL 0.1 mg/dL (0.1-1.0); TOTAL PROTEIN, SERUM 8.6 g/dL (6.4-8.2)
[2017-10-19 11:09] LABS: BACTERIA,URINE Few /HPF (None Seen); RBC,URINE 26-50 /HPF (0-2); SQUAMOUS EPITHELIAL CELL,UR Moderate /LPF (None Seen); SULFOSALICYLIC ACID,URINE 3+ (Negative); YEAST,URINE Rare /HPF (None Seen)
[2017-10-19 11:22] LABS: BAND NEUTROPHILS % (MANUAL) 1 % (1-5); LYMPHOCYTES % (MANUAL) 47 % (22-44); SEGMENTED NEUTROPHILS % 52 % (40-70)
[2017-10-19 11:24] LABS: PLATELET MORPHOLOGY COMMENT GIANT PLTS PRESENT
[2017-10-19 12:13] VITALS: BP 136/70
[2017-10-20] MEDS ORDERED: BISA10S PR (13:55)
[2017-10-20] MEDS ORDERED: MIRALAX PO (13:55)
[2017-10-20] MEDS ORDERED: CIPR-278 PO (13:55)
== END 2017-10-19 12:53 | disposition home or self-care (01) ==
LOC: EMS 09:29
DX: R10.2 Pelvic and perineal pain (principal); E78.00 Pure hypercholesterolemia, unspecified; I10 Essential (primary) hypertension; F17.210 Nicotine dependence, cigarettes, uncomplicated; F19.90 Other psychoactive substance use, unspecified, uncomplicated; Z88.0 Allergy status to penicillin; Z88.8 Allergy status to other drugs, medicaments and biological substances
CPT/HCPCS: 74022; 99285

== ENCOUNTER 2017-10-21 07:48 | Emergency (ER) | payer MEDICARE, MEDICAID ==
[~2017-10-21] VITALS: Ht 167.6 cm; Wt 61.4 kg
[~2017-10-21 07:48] MED LIST changes: +BISA10S PR; -BUSP15 PO; -CHLO100T24 PO; +CIPR-278 PO; -ESCI20TA PO; -FERR-89 PO; -HYDR-4031 PO; +MIRALAX PO; -MIRT30 PO; -NITR100C13 PO
[2017-10-21 09:25] LABS: EOSINOPHILS # (AUTO) 0.04 K/uL (0.00-0.70); EOSINOPHILS % (AUTO) 1.43 % (1.0-6.0); HEMATOCRIT 37.1 % (36-46); HEMOGLOBIN 11.8 g/dL (12.0-16.0); LYMPHOCYTES # (AUTO) 1.2 K/uL (1.0-4.8); MEAN CORPUSCULAR HEMOGLOBIN 22.5 pg (26.0-34.0); MEAN CORPUSCULAR HGB CONC 31.8 G/dL (31.0-37.0); MEAN CORPUSCULAR VOLUME 71 fL (80-100); MONOCYTES # (AUTO) 0.3 K/uL (0.1-1.0); MONOCYTES % (AUTO) 10.1 % (2.0-9.0); NEUTROPHILS # (AUTO) 1.6 K/uL (1.8-7.7); NEUTROPHILS % (AUTO) 51.5 % (40.0-70.0); PLATELET COUNT (AUTO) 206 K/uL (150-450); RED BLOOD CELL COUNT(AUTO) 5.25 MIL/uL (4.00-5.20); RED CELL DISTRIBUTION WIDTH 17.3 % (11.5-14.5)
[2017-10-21 09:33] LABS: AMPHET/METH SCREEN,URINE NEGATIVE (NEGATIVE); BARBITURATE SCREEN, URINE NEGATIVE (NEGATIVE); BENZODIAZEPINES SCREEN,URINE NEGATIVE (NEGATIVE); CANNABINOID SCREEN,URINE NEGATIVE (NEGATIVE); COCAINE SCREEN,URINE NEGATIVE (NEGATIVE); METHADONE SCREEN, URINE NEGATIVE (NEGATIVE); OPIATE SCREEN,URINE POSITIVE (NEGATIVE); PHENCYCLIDINE SCREEN,URINE NEGATIVE (NEGATIVE)
[2017-10-21 09:39] LABS: APPEARANCE,URINE CLOUDY (CLEAR); BILIRUBIN,URINE NEGATIVE (NEGATIVE); GLUCOSE, URINE (UA) NEGATIVE (NEGATIVE); KETONES,URINE NEGATIVE (NEGATIVE); LEUKOCYTE ESTERASE ,URINE NEGATIVE (NEGATIVE); NITRATE,URINE NEGATIVE (NEGATIVE); OCCULT BLOOD,URINE SMALL (NEGATIVE); PROTEIN,URINE SEE CONFIRM (NEGATIVE); UROBILINOGEN,URINE 0.2 mg/dL (<=1.0)
[2017-10-21 09:45] LABS: ANION GAP 7 mmol/L (8-16); CALCIUM, TOTAL 9.8 mg/dL (8.8-10.5); CARBON DIOXIDE 31 mmol/L (22-29); CHLORIDE 104 mmol/L (98-107); CREATININE 1.09 mg/dL (0.60-1.30); GLOMERULAR FILTR. RATE CALC > 60 mL/min (>60); GLUCOSE,RANDOM 103 mg/dL (70-110); POTASSIUM 3.8 mmol/L (3.5-5.1); SODIUM SERUM 142 mmol/L (136-145); UREA NITROGEN, BLOOD 14 mg/dL (7-18)
[2017-10-21 09:50] LABS: ALANINE AMINOTRANSFERASE 17 U/L (12-78); ALBUMIN 3.9 g/dL (3.4-5.0); ALKALINE PHOSPHATASE 105 U/L (46-116); ASPARTATE AMINOTRANSFERASE 18 U/L (15-37); BILIRUBIN,TOTAL 0.3 mg/dL (0.1-1.0); TOTAL PROTEIN, SERUM 9.1 g/dL (6.4-8.2)
[2017-10-21 09:55] LABS: SULFOSALICYLIC ACID,URINE 2+ (Negative)
[2017-10-21 09:57] LABS: BACTERIA,URINE Rare /HPF (None Seen); SQUAMOUS EPITHELIAL CELL,UR Moderate /LPF (None Seen)
[2017-10-21 09:58] VITALS: BP 157/115
[2017-10-21] MEDS ORDERED: ACETAMINOPHEN 325 MG TABLET PO ONE (10:30)
== END 2017-10-21 10:46 | disposition home or self-care (01) ==
LOC: EMS 07:49
DX: F41.9 Anxiety disorder, unspecified (principal); R30.0 Dysuria; E78.00 Pure hypercholesterolemia, unspecified; I10 Essential (primary) hypertension; F20.9 Schizophrenia, unspecified; F17.210 Nicotine dependence, cigarettes, uncomplicated; F13.90 Sedative, hypnotic, or anxiolytic use, unspecified, uncomplicated; Z87.442 Personal history of urinary calculi; Z88.5 Allergy status to narcotic agent; Z88.0 Allergy status to penicillin; Z88.8 Allergy status to other drugs, medicaments and biological substances
CPT/HCPCS: 36415; 80053; 80307; 81001; 85025; 99284; G0480

== ENCOUNTER 2017-10-22 07:24 | Emergency (ER) | payer MEDICARE, MEDICAID ==
[~2017-10-22] VITALS: Ht 170.2 cm; Wt 68.2 kg
[2017-10-22 07:35] VITALS: BP 175/85
== END 2017-10-22 08:07 | disposition left against medical advice (07) ==
LOC: EMS 07:27
DX: F41.9 Anxiety disorder, unspecified (principal); E78.00 Pure hypercholesterolemia, unspecified; I10 Essential (primary) hypertension; F20.9 Schizophrenia, unspecified; F17.210 Nicotine dependence, cigarettes, uncomplicated; F13.90 Sedative, hypnotic, or anxiolytic use, unspecified, uncomplicated; Z88.0 Allergy status to penicillin; Z88.5 Allergy status to narcotic agent; Z87.442 Personal history of urinary calculi
CPT/HCPCS: 99284

== ENCOUNTER 2017-10-23 06:18 | Emergency (ER) | payer MEDICARE, MEDICAID ==
[~2017-10-23] VITALS: Ht 167.6 cm; Wt 61.8 kg
[~2017-10-23 06:18] MED LIST changes: +BUSP15 PO; +CHLO100T24 PO; +ESCI20TA PO; +FERR-89 PO; +HYDR-4031 PO; +MIRT30 PO; +NITR100C13 PO
[2017-10-23 09:42] VITALS: BP 160/80
== END 2017-10-23 10:26 | disposition home or self-care (01) ==
LOC: EMS 06:20
DX: F41.9 Anxiety disorder, unspecified (principal); G89.29 Other chronic pain; E78.00 Pure hypercholesterolemia, unspecified; I10 Essential (primary) hypertension; F20.9 Schizophrenia, unspecified; F17.210 Nicotine dependence, cigarettes, uncomplicated; F13.90 Sedative, hypnotic, or anxiolytic use, unspecified, uncomplicated; Z88.5 Allergy status to narcotic agent; Z88.0 Allergy status to penicillin
CPT/HCPCS: 99284

== ENCOUNTER 2017-10-23 10:54 | Inpatient (IN) | payer MEDICARE, MEDICAID ==
[~2017-10-23] VITALS: Ht 167.6 cm; Wt 59.6 kg
[2017-10-23] MEDS ORDERED: QUEtiapine FUMARATE 25 MG TABLET PO ONE (11:45)
[2017-10-23] MEDS ORDERED: HydrOXYzine PAMOATE 50 MG CAPSULE PO ONE (11:45)
[2017-10-23 11:59] LABS: BASOPHILS # (AUTO) 0.09 K/uL (0.00-0.20); BASOPHILS % (AUTO) 1.6 % (0.0-2.0); EOSINOPHILS # (AUTO) 0.02 K/uL (0.00-0.70); EOSINOPHILS % (AUTO) 0.46 % (1.0-6.0); HEMATOCRIT 35.7 % (36-46); HEMOGLOBIN 11.4 g/dL (12.0-16.0); LYMPHOCYTES # (AUTO) 1.9 K/uL (1.0-4.8); LYMPHOCYTES % (AUTO) 35.2 % (22.0-44.0); MEAN CORPUSCULAR HEMOGLOBIN 22.5 pg (26.0-34.0); MEAN CORPUSCULAR VOLUME 70 fL (80-100); MONOCYTES # (AUTO) 0.3 K/uL (0.1-1.0); MONOCYTES % (AUTO) 5.4 % (2.0-9.0); NEUTROPHILS # (AUTO) 3.1 K/uL (1.8-7.7); NEUTROPHILS % (AUTO) 57.3 % (40.0-70.0); PLATELET COUNT (AUTO) 251 K/uL (150-450); RED BLOOD CELL COUNT(AUTO) 5.09 MIL/uL (4.00-5.20); RED CELL DISTRIBUTION WIDTH 17.4 % (11.5-14.5)
[2017-10-23 12:08] LABS: ANION GAP 11 mmol/L (8-16); CALCIUM, TOTAL 9.8 mg/dL (8.8-10.5); CARBON DIOXIDE 27 mmol/L (22-29); CHLORIDE 104 mmol/L (98-107); CREATININE 1.25 mg/dL (0.60-1.30); GLOMERULAR FILTR. RATE CALC 52 mL/min (>60); GLUCOSE,RANDOM 137 mg/dL (70-110); POTASSIUM 3.6 mmol/L (3.5-5.1); SODIUM SERUM 142 mmol/L (136-145); UREA NITROGEN, BLOOD 26 mg/dL (7-18)
[2017-10-23 12:13] LABS: ALANINE AMINOTRANSFERASE 21 U/L (12-78); ALKALINE PHOSPHATASE 99 U/L (46-116); ASPARTATE AMINOTRANSFERASE 26 U/L (15-37); BILIRUBIN,TOTAL 0.3 mg/dL (0.1-1.0); TOTAL PROTEIN, SERUM 8.9 g/dL (6.4-8.2)
[2017-10-23 12:33] LABS: PLATELET MORPHOLOGY COMMENT GIANT PLTS PRESENT
[2017-10-23] MEDS ORDERED: MINERAL OIL 30 ML UDCUP PO ONE (12:45)
[2017-10-23] MEDS: LORazepam 1 MG TABLET PO PRN (16:20)
[2017-10-23] MEDS ORDERED: ACETAMINOPHEN 325 MG TABLET ONE (16:23)
[2017-10-23] MEDS ORDERED: ACETAMINOPHEN 325 MG TABLET PO ONE (16:30)
[2017-10-23 19:12] VITALS: BP 141/65
[2017-10-23] MEDS: IBUPROFEN 400 MG TABLET PO PRN (19:17)
[2017-10-23] MEDS ORDERED: INFLUENZA VIRUS VACCINE QVS 2017-18 (3YR+)/PF 60 MCG/0.5 ML SYRINGE IM ONE (19:45)
[2017-10-23] MEDS ORDERED: PNEUMOCOCCAL VACCINE POLYVALENT 0.5 ML VIAL [PPSV23] IM ONE (19:45)
[2017-10-23] MEDS: QUEtiapine FUMARATE 25 MG TABLET PO SCH (21:28)
[2017-10-23] MEDS: TraZODone HCL 50 MG TABLET PO SCH (21:28)
[2017-10-24 00:40] VITALS: BP 120/72
[2017-10-24] MEDS: LORazepam 1 MG TABLET PO PRN ×3 (00:42→16:42)
[2017-10-24 01:20] VITALS: BP 120/72
[2017-10-24] MEDS: IBUPROFEN 400 MG TABLET PO PRN ×3 (01:20→21:35)
[2017-10-24 06:20] VITALS: BP 122/71
[2017-10-24] MEDS: ACETAMINOPHEN 325 MG TABLET PO PRN (06:20)
[2017-10-24] MEDS: NICOTINE 14 MG/24 HOUR PATCH TD SCH (08:09)
[2017-10-24 08:42] LABS: AMPHET/METH SCREEN,URINE NEGATIVE (NEGATIVE); BARBITURATE SCREEN, URINE NEGATIVE (NEGATIVE); BENZODIAZEPINES SCREEN,URINE NEGATIVE (NEGATIVE); CANNABINOID SCREEN,URINE NEGATIVE (NEGATIVE); COCAINE SCREEN,URINE NEGATIVE (NEGATIVE); METHADONE SCREEN, URINE NEGATIVE (NEGATIVE); OPIATE SCREEN,URINE NEGATIVE (NEGATIVE)
[2017-10-24 09:22] LABS: PHENCYCLIDINE SCREEN,URINE NEGATIVE (NEGATIVE)
[2017-10-24] MEDS ORDERED: BISACODYL 10 MG RECTAL RECTAL SUPPOSITORY PR PRN (12:00)
[2017-10-24] MEDS ORDERED: MAGNESIUM CITRATE 300 ML ORAL SOLUTION PO PRN (12:00)
[2017-10-24 13:26] LABS: APPEARANCE,URINE CLOUDY (CLEAR); BILIRUBIN,URINE NEGATIVE (NEGATIVE); GLUCOSE, URINE (UA) NEGATIVE (NEGATIVE); KETONES,URINE NEGATIVE (NEGATIVE); LEUKOCYTE ESTERASE ,URINE SMALL (NEGATIVE); NITRATE,URINE NEGATIVE (NEGATIVE); OCCULT BLOOD,URINE SMALL (NEGATIVE); PH,URINE 5.5 (5.0-8.0); PROTEIN,URINE NEGATIVE (NEGATIVE); UROBILINOGEN,URINE 0.2 mg/dL (<=1.0)
[2017-10-24 14:01] LABS: BACTERIA,URINE None Seen /HPF (None Seen); SQUAMOUS EPITHELIAL CELL,UR Many /LPF (None Seen)
[2017-10-24 14:02] LABS: CALCIUM OXALATE CRYSTALS,UR Many /LPF (None Seen)
[2017-10-24] MEDS: CIPROFLOXACIN HCL 250 MG TABLET PO SCH (16:42)
[2017-10-24] MEDS: DOCUSATE SODIUM 100 MG CAPSULE PO SCH (16:42)
[2017-10-24 19:09] VITALS: BP 131/39
[2017-10-24] MEDS: TraZODone HCL 50 MG TABLET PO SCH (21:34)
[2017-10-24] MEDS: QUEtiapine FUMARATE 25 MG TABLET PO SCH (21:34)
[2017-10-25] MEDS: IBUPROFEN 400 MG TABLET PO PRN (03:55)
[2017-10-25] MEDS: HALOPERIDOL 5 MG TABLET PO PRN ×2 (05:07→11:52)
[2017-10-25] MEDS: NICOTINE 14 MG/24 HOUR PATCH TD SCH (07:42)
[2017-10-25] MEDS: CIPROFLOXACIN HCL 250 MG TABLET PO SCH ×2 (07:42→16:14)
[2017-10-25] MEDS: DOCUSATE SODIUM 100 MG CAPSULE PO SCH ×2 (07:43→16:14)
[2017-10-25] MEDS: AmLODIPine BESYLATE 2.5 MG TABLET PO SCH (07:43)
[2017-10-25] MEDS: ACETAMINOPHEN 325 MG TABLET PO PRN ×2 (07:58→16:14)
[2017-10-25 08:58] VITALS: BP 166/87
[2017-10-25 16:12] VITALS: BP 159/96
[2017-10-25] MEDS: TraZODone HCL 50 MG TABLET PO SCH (20:15)
[2017-10-25] MEDS: QUEtiapine FUMARATE 25 MG TABLET PO SCH (20:15)
[2017-10-26 00:42] VITALS: BP 164/99
[2017-10-26] MEDS: ZOLPIDEM TARTRATE 10 MG TABLET PO PRN (00:42)
[2017-10-26] MEDS: IBUPROFEN 400 MG TABLET PO PRN ×2 (00:42→09:50)
[2017-10-26] MEDS: ACETAMINOPHEN 325 MG TABLET PO PRN ×3 (06:22→20:08)
[2017-10-26] MEDS: NICOTINE 14 MG/24 HOUR PATCH TD SCH (09:49)
[2017-10-26] MEDS: AmLODIPine BESYLATE 2.5 MG TABLET PO SCH (09:49)
[2017-10-26] MEDS: CIPROFLOXACIN HCL 250 MG TABLET PO SCH ×2 (09:49→16:10)
[2017-10-26] MEDS: DOCUSATE SODIUM 100 MG CAPSULE PO SCH ×2 (09:49→16:10)
[2017-10-26] MEDS: HALOPERIDOL 5 MG TABLET PO PRN (09:49)
[2017-10-26 09:52] VITALS: BP 166/88
[2017-10-26 16:08] VITALS: BP 159/98
[2017-10-26] MEDS: TraZODone HCL 50 MG TABLET PO SCH (20:08)
[2017-10-26] MEDS: QUEtiapine FUMARATE 25 MG TABLET PO SCH (20:08)
[2017-10-27 00:06] VITALS: BP 162/98
[2017-10-27] MEDS: HALOPERIDOL 5 MG TABLET PO PRN ×2 (00:08→09:00)
[2017-10-27] MEDS: ZOLPIDEM TARTRATE 10 MG TABLET PO PRN (00:08)
[2017-10-27] MEDS: IBUPROFEN 400 MG TABLET PO PRN ×3 (00:08→19:50)
[2017-10-27 08:50] VITALS: BP 148/88
[2017-10-27 08:55] VITALS: BP 148/88
[2017-10-27] MEDS: AmLODIPine BESYLATE 2.5 MG TABLET PO SCH (08:56)
[2017-10-27] MEDS: DOCUSATE SODIUM 100 MG CAPSULE PO SCH ×2 (08:56→16:57)
[2017-10-27] MEDS: CIPROFLOXACIN HCL 250 MG TABLET PO SCH ×2 (08:56→16:57)
[2017-10-27] MEDS: NICOTINE 14 MG/24 HOUR PATCH TD SCH (08:58)
[2017-10-27] MEDS: ACETAMINOPHEN 325 MG TABLET PO PRN (14:17)
[2017-10-27 17:30] VITALS: BP 147/95
[2017-10-27 19:45] VITALS: BP 141/81
[2017-10-27] MEDS: QUEtiapine FUMARATE 25 MG TABLET PO SCH (20:02)
[2017-10-27] MEDS: TraZODone HCL 50 MG TABLET PO SCH (20:02)
[2017-10-27 20:45] VITALS: BP 136/78
[2017-10-28 00:15] VITALS: BP 167/99
[2017-10-28] MEDS: ZOLPIDEM TARTRATE 10 MG TABLET PO PRN (00:31)
[2017-10-28] MEDS: ACETAMINOPHEN 325 MG TABLET PO PRN ×2 (00:32→08:43)
[2017-10-28 06:15] VITALS: BP 171/96
[2017-10-28] MEDS: IBUPROFEN 400 MG TABLET PO PRN (06:17)
[2017-10-28 08:41] VITALS: BP 170/89
[2017-10-28] MEDS: HALOPERIDOL 5 MG TABLET PO PRN (08:43)
[2017-10-28] MEDS: DOCUSATE SODIUM 100 MG CAPSULE PO SCH ×2 (08:43→16:46)
[2017-10-28] MEDS: AmLODIPine BESYLATE 2.5 MG TABLET PO SCH (08:43)
[2017-10-28] MEDS: CIPROFLOXACIN HCL 250 MG TABLET PO SCH ×2 (08:43→16:46)
[2017-10-28] MEDS: NICOTINE 14 MG/24 HOUR PATCH TD SCH (08:50)
[2017-10-28 15:59] VITALS: BP 164/84
[2017-10-28 16:01] VITALS: BP 164/84
[2017-10-28] MEDS ORDERED: CloNIDine HCL 0.1 MG TABLET PO PRN (20:00)
[2017-10-28] MEDS: TraZODone HCL 50 MG TABLET PO SCH (21:06)
[2017-10-28] MEDS: QUEtiapine FUMARATE 25 MG TABLET PO SCH (21:06)
[2017-10-29 00:45] VITALS: BP 148/83
[2017-10-29] MEDS: ACETAMINOPHEN 325 MG TABLET PO PRN (00:48)
[2017-10-29] MEDS: HALOPERIDOL 5 MG TABLET PO PRN ×2 (04:31→19:21)
[2017-10-29] MEDS: AmLODIPine BESYLATE 2.5 MG TABLET PO SCH (07:49)
[2017-10-29 08:15] VITALS: BP 164/88
[2017-10-29] MEDS: DOCUSATE SODIUM 100 MG CAPSULE PO SCH ×2 (09:22→16:19)
[2017-10-29] MEDS: CIPROFLOXACIN HCL 250 MG TABLET PO SCH ×2 (09:22→16:19)
[2017-10-29] MEDS: NICOTINE 14 MG/24 HOUR PATCH TD SCH (09:24)
[2017-10-29 10:11] VITALS: BP 164/88
[2017-10-29] MEDS: IBUPROFEN 400 MG TABLET PO PRN (16:20)
[2017-10-29 16:21] VITALS: BP 163/84
[2017-10-29] MEDS: TraZODone HCL 50 MG TABLET PO SCH (20:15)
[2017-10-29] MEDS: QUEtiapine FUMARATE 25 MG TABLET PO SCH (20:15)
[2017-10-30 03:10] VITALS: BP 141/100
[2017-10-30] MEDS: IBUPROFEN 400 MG TABLET PO PRN ×3 (03:11→18:49)
[2017-10-30] MEDS: CIPROFLOXACIN HCL 250 MG TABLET PO SCH ×2 (08:22→16:24)
[2017-10-30] MEDS: DOCUSATE SODIUM 100 MG CAPSULE PO SCH ×2 (08:23→16:24)
[2017-10-30] MEDS: AmLODIPine BESYLATE 2.5 MG TABLET PO SCH (08:23)
[2017-10-30] MEDS: NICOTINE 14 MG/24 HOUR PATCH TD SCH (08:28)
[2017-10-30 09:03] VITALS: BP 147/102
[2017-10-30 09:16] VITALS: BP 142/102
[2017-10-30] MEDS: HALOPERIDOL 5 MG TABLET PO PRN (16:49)
[2017-10-30] MEDS: QUEtiapine FUMARATE 25 MG TABLET PO SCH (20:21)
[2017-10-30] MEDS: TraZODone HCL 50 MG TABLET PO SCH (20:21)
[2017-10-31 05:44] VITALS: BP 147/71
[2017-10-31] MEDS: IBUPROFEN 400 MG TABLET PO PRN (05:44)
[2017-10-31 08:00] VITALS: BP 150/87
[2017-10-31] MEDS: AmLODIPine BESYLATE 2.5 MG TABLET PO SCH (08:28)
[2017-10-31] MEDS: DOCUSATE SODIUM 100 MG CAPSULE PO SCH ×2 (08:28→16:44)
[2017-10-31] MEDS: CIPROFLOXACIN HCL 250 MG TABLET PO SCH (08:28)
[2017-10-31] MEDS: NICOTINE 14 MG/24 HOUR PATCH TD SCH (10:52)
[2017-10-31 17:37] VITALS: BP 134/91
[2017-10-31] MEDS: QUEtiapine FUMARATE 25 MG TABLET PO SCH (20:35)
[2017-10-31] MEDS: TraZODone HCL 50 MG TABLET PO SCH (20:35)
[2017-11-01 03:08] VITALS: BP 150/76
[2017-11-01] MEDS: ACETAMINOPHEN 325 MG TABLET PO PRN (03:12)
[2017-11-01 08:51] VITALS: BP 149/88
[2017-11-01] MEDS: DOCUSATE SODIUM 100 MG CAPSULE PO SCH ×2 (08:53→17:15)
[2017-11-01] MEDS: AmLODIPine BESYLATE 10 MG TABLET PO SCH (08:53)
[2017-11-01] MEDS: IBUPROFEN 400 MG TABLET PO PRN ×2 (08:54→17:15)
[2017-11-01] MEDS: NICOTINE 14 MG/24 HOUR PATCH TD SCH (08:56)
[2017-11-01 17:15] VITALS: BP 145/95
[2017-11-01] MEDS: TraZODone HCL 50 MG TABLET PO SCH (20:37)
[2017-11-01] MEDS: QUEtiapine FUMARATE 25 MG TABLET PO SCH (20:37)
[2017-11-02 02:25] VITALS: BP 165/81
[2017-11-02] MEDS: HALOPERIDOL 5 MG TABLET PO PRN (05:54)
[2017-11-02 08:55] VITALS: BP 126/97
[2017-11-02] MEDS: DOCUSATE SODIUM 100 MG CAPSULE PO SCH ×2 (08:59→17:17)
[2017-11-02] MEDS: AmLODIPine BESYLATE 10 MG TABLET PO SCH (08:59)
[2017-11-02] MEDS: IBUPROFEN 400 MG TABLET PO PRN ×2 (08:59→17:18)
[2017-11-02] MEDS: NICOTINE 14 MG/24 HOUR PATCH TD SCH (09:02)
[2017-11-02 09:19] VITALS: BP 136/97
[2017-11-02 16:59] VITALS: BP 160/91
[2017-11-02 17:18] VITALS: BP 158/87
[2017-11-02] MEDS: QUEtiapine FUMARATE 25 MG TABLET PO SCH (20:56)
[2017-11-02] MEDS: TraZODone HCL 50 MG TABLET PO SCH (20:56)
[2017-11-03 00:40] VITALS: BP 155/71
[2017-11-03] MEDS: HALOPERIDOL 5 MG TABLET PO PRN (00:51)
[2017-11-03] MEDS: ZOLPIDEM TARTRATE 10 MG TABLET PO PRN (00:51)
[2017-11-03 08:00] VITALS: BP 167/93
[2017-11-03] MEDS: AmLODIPine BESYLATE 10 MG TABLET PO SCH (08:59)
[2017-11-03] MEDS: NICOTINE 14 MG/24 HOUR PATCH TD SCH (08:59)
[2017-11-03] MEDS: HydrALAZINE HCL 25 MG TABLET PO SCH ×2 (09:00→16:54)
[2017-11-03] MEDS: DOCUSATE SODIUM 100 MG CAPSULE PO SCH ×2 (09:00→16:56)
[2017-11-03] MEDS ORDERED: QUET25TA PO (15:18)
[2017-11-03] MEDS ORDERED: AMLO-512 PO (15:19)
[2017-11-03] MEDS ORDERED: TRAZ-144 PO ×2 (15:19)
[2017-11-03] MEDS ORDERED: DSS100 PO (15:20)
[2017-11-03] MEDS ORDERED: HYDR25TA84 PO (15:20)
== END 2017-11-03 17:00 | disposition home or self-care (01) | DRG 750 ==
LOC: EMS 10:56 → 3EI 16:42
PROVIDERS: ADMIT Psychiatry & Neurology Psychiatry; ATTEND Psychiatry & Neurology Psychiatry
DX: F25.0 Schizoaffective disorder, bipolar type (principal); R45.851 Suicidal ideations; N18.3 Chronic kidney disease, stage 3 (moderate); Z91.14 Patient's other noncompliance with medication regimen; D64.9 Anemia, unspecified; I12.9 Hypertensive chronic kidney disease with stage 1 through stage 4 chronic kidney disease, or unspecified chronic kidney disease; F13.10 Sedative, hypnotic or anxiolytic abuse, uncomplicated; E78.00 Pure hypercholesterolemia, unspecified; G47.00 Insomnia, unspecified; K59.09 Other constipation; M19.90 Unspecified osteoarthritis, unspecified site; F17.210 Nicotine dependence, cigarettes, uncomplicated; F41.1 Generalized anxiety disorder; F40.10 Social phobia, unspecified; N39.0 Urinary tract infection, site not specified; Z79.899 Other long term (current) drug therapy; Z71.6 Tobacco abuse counseling; Z86.73 Personal history of transient ischemic attack (TIA), and cerebral infarction without residual deficits; Z87.442 Personal history of urinary calculi; Z90.710 Acquired absence of both cervix and uterus; Z96.649 Presence of unspecified artificial hip joint; Z88.0 Allergy status to penicillin; Z88.8 Allergy status to other drugs, medicaments and biological substances; Z28.21 Immunization not carried out because of patient refusal
CPT/HCPCS: 80307; 87081; 99285; G0480

== ENCOUNTER 2017-11-13 17:30 | Emergency (ER) | payer MEDICARE, MEDICAID ==
[~2017-11-13] VITALS: Ht 162.6 cm; Wt 50.0 kg
[~2017-11-13 17:30] MED LIST changes: -AMLO-511 PO; +AMLO-512 PO; -BISA10S PR; -BUSP15 PO; -CHLO100T24 PO; -CIPR-278 PO; +DSS100 PO; -ESCI20TA PO; -FERR-89 PO; -HYDR-4031 PO; +HYDR25TA84 PO; -MIRALAX PO; -MIRT30 PO; -NITR100C13 PO
[2017-11-13] MEDS ORDERED: PHENAZOPYRIDINE HCL 100 MG TABLET PO ONE (19:45)
[2017-11-13] MEDS ORDERED: ACETAMINOPHEN 500 MG TABLET PO ONE (19:45)
[2017-11-13] MEDS ORDERED: SODIUM CHLORIDE 0.9% 1,000 ML IV ONE (20:00)
[2017-11-13] MEDS ORDERED: HydrOXYzine PAMOATE 25 MG CAPSULE PO ONE (21:00)
[2017-11-13 21:08] LABS: APPEARANCE,URINE TURBID (CLEAR); BILIRUBIN,URINE NEGATIVE (NEGATIVE); GLUCOSE, URINE (UA) NEGATIVE (NEGATIVE); KETONES,URINE NEGATIVE (NEGATIVE); LEUKOCYTE ESTERASE ,URINE MODERATE (NEGATIVE); NITRATE,URINE POSITIVE (NEGATIVE); OCCULT BLOOD,URINE LARGE (NEGATIVE); PH,URINE 5.5 (5.0-8.0); PROTEIN,URINE SEE CONFIRM (NEGATIVE)
[2017-11-13 21:25] VITALS: BP 119/82
[2017-11-13 21:40] LABS: SULFOSALICYLIC ACID,URINE 3+ (Negative)
[2017-11-13 21:41] LABS: RBC,URINE >100 /HPF (0-2)
[2017-11-13 21:42] LABS: SQUAMOUS EPITHELIAL CELL,UR Few /LPF (None Seen); WBC,URINE 51-100 /HPF (0-5)
[2017-11-13 21:43] LABS: BACTERIA,URINE Many /HPF (None Seen)
== END 2017-11-13 22:20 | disposition home or self-care (01) ==
LOC: EMS 17:34
DX: F41.9 Anxiety disorder, unspecified (principal); N39.0 Urinary tract infection, site not specified; I10 Essential (primary) hypertension; E78.00 Pure hypercholesterolemia, unspecified; F17.210 Nicotine dependence, cigarettes, uncomplicated; F19.90 Other psychoactive substance use, unspecified, uncomplicated; Z88.0 Allergy status to penicillin; Z88.8 Allergy status to other drugs, medicaments and biological substances
CPT/HCPCS: 51702; 81001; 87077; 87086; 87186; 96360; 99284; J7030

== ENCOUNTER 2017-11-14 11:20 | Emergency (ER) | payer MEDICARE, MEDICAID ==
[~2017-11-14] VITALS: Ht 162.6 cm; Wt 54.0 kg
[2017-11-14] MEDS ORDERED: LORazepam 2 MG/ML VIAL IM ONE (11:45)
[2017-11-14 11:54] LABS: BASOPHILS % (AUTO) 0.5 % (0.0-2.0); EOSINOPHILS % (AUTO) 0.4 % (1.0-6.0); HEMATOCRIT 29.7 % (36-46); HEMOGLOBIN 9.3 g/dL (12.0-16.0); LYMPHOCYTES # (AUTO) 1.2 K/uL (1.0-4.8); LYMPHOCYTES % (AUTO) 18.6 % (22.0-44.0); MEAN CORPUSCULAR HEMOGLOBIN 22.1 pg (26.0-34.0); MEAN CORPUSCULAR HGB CONC 31.5 G/dL (31.0-37.0); MEAN CORPUSCULAR VOLUME 70 fL (80-100); MONOCYTES # (AUTO) 0.5 K/uL (0.1-1.0); MONOCYTES % (AUTO) 7.5 % (2.0-9.0); NEUTROPHILS # (AUTO) 4.5 K/uL (1.8-7.7); PLATELET COUNT (AUTO) 267 K/uL (150-450); RED BLOOD CELL COUNT(AUTO) 4.23 MIL/uL (4.00-5.20); RED CELL DISTRIBUTION WIDTH 16.5 % (11.5-14.5)
[2017-11-14 12:01] LABS: ANION GAP 8 mmol/L (8-16); CALCIUM, TOTAL 8.9 mg/dL (8.8-10.5); CARBON DIOXIDE 30 mmol/L (22-29); CHLORIDE 108 mmol/L (98-107); CREATININE 1.04 mg/dL (0.60-1.30); GLOMERULAR FILTR. RATE CALC > 60 mL/min (>60); GLUCOSE,RANDOM 109 mg/dL (70-110); POTASSIUM 3.5 mmol/L (3.5-5.1); SODIUM SERUM 146 mmol/L (136-145); UREA NITROGEN, BLOOD 16 mg/dL (7-18)
[2017-11-14 12:06] LABS: ALANINE AMINOTRANSFERASE 19 U/L (12-78); ALBUMIN 2.5 g/dL (3.4-5.0); ALKALINE PHOSPHATASE 89 U/L (46-116); ASPARTATE AMINOTRANSFERASE 15 U/L (15-37); BILIRUBIN,TOTAL 0.2 mg/dL (0.1-1.0); TOTAL PROTEIN, SERUM 7.8 g/dL (6.4-8.2)
[2017-11-14 14:18] LABS: AMPHET/METH SCREEN,URINE NEGATIVE (NEGATIVE); BARBITURATE SCREEN, URINE NEGATIVE (NEGATIVE); BENZODIAZEPINES SCREEN,URINE NEGATIVE (NEGATIVE); CANNABINOID SCREEN,URINE NEGATIVE (NEGATIVE); COCAINE SCREEN,URINE NEGATIVE (NEGATIVE); METHADONE SCREEN, URINE NEGATIVE (NEGATIVE); OPIATE SCREEN,URINE NEGATIVE (NEGATIVE)
[2017-11-14 14:19] LABS: PHENCYCLIDINE SCREEN,URINE NEGATIVE (NEGATIVE)
[2017-11-14 14:24] LABS: APPEARANCE,URINE CLOUDY (CLEAR); BILIRUBIN,URINE NEGATIVE (NEGATIVE); GLUCOSE, URINE (UA) NEGATIVE (NEGATIVE); KETONES,URINE NEGATIVE (NEGATIVE); LEUKOCYTE ESTERASE ,URINE MODERATE (NEGATIVE); NITRATE,URINE POSITIVE (NEGATIVE); OCCULT BLOOD,URINE TRACE (NEGATIVE); PH,URINE 6.5 (5.0-8.0); PROTEIN,URINE SEE CONFIRM (NEGATIVE)
[2017-11-14 14:32] LABS: BACTERIA,URINE Moderate /HPF (None Seen); SQUAMOUS EPITHELIAL CELL,UR Few /LPF (None Seen); WBC,URINE 26-50 /HPF (0-5)
[2017-11-14 14:33] LABS: CALCIUM OXALATE CRYSTALS,UR Few /LPF (None Seen)
[2017-11-14] MEDS ORDERED: CIPROFLOXACIN HCL 250 MG TABLET PO ONE (14:45)
[2017-11-14] MEDS ORDERED: PHENAZOPYRIDINE HCL 100 MG TABLET PO ONE (14:45)
[2017-11-14 15:46] VITALS: BP 131/73
== END 2017-11-14 16:14 | disposition home or self-care (01) ==
LOC: EMS 11:24
DX: F41.9 Anxiety disorder, unspecified (principal); N39.0 Urinary tract infection, site not specified; F20.9 Schizophrenia, unspecified; E78.00 Pure hypercholesterolemia, unspecified; I10 Essential (primary) hypertension; F17.210 Nicotine dependence, cigarettes, uncomplicated; F19.90 Other psychoactive substance use, unspecified, uncomplicated; Z88.0 Allergy status to penicillin; Z88.8 Allergy status to other drugs, medicaments and biological substances
CPT/HCPCS: 36415; 80053; 80307; 81001; 85025; 87077; 87086; 87186; 96372; 99284; 99406; G0480; J2060

== ENCOUNTER 2017-11-15 07:14 | Emergency (ER) | payer MEDICARE, MEDICAID ==
[~2017-11-15] VITALS: Ht 167.6 cm; Wt 59.1 kg
[2017-11-15 09:12] LABS: BASOPHILS % (AUTO) 0.3 % (0.0-2.0); EOSINOPHILS % (AUTO) 0.5 % (1.0-6.0); HEMATOCRIT 29.2 % (36-46); HEMOGLOBIN 9.3 g/dL (12.0-16.0); LYMPHOCYTES % (AUTO) 14.4 % (22.0-44.0); MEAN CORPUSCULAR HEMOGLOBIN 21.9 pg (26.0-34.0); MEAN CORPUSCULAR HGB CONC 31.9 G/dL (31.0-37.0); MEAN CORPUSCULAR VOLUME 69 fL (80-100); MONOCYTES # (AUTO) 0.4 K/uL (0.1-1.0); MONOCYTES % (AUTO) 5.6 % (2.0-9.0); NEUTROPHILS # (AUTO) 5.3 K/uL (1.8-7.7); NEUTROPHILS % (AUTO) 79.2 % (40.0-70.0); PLATELET COUNT (AUTO) 283 K/uL (150-450); RED BLOOD CELL COUNT(AUTO) 4.26 MIL/uL (4.00-5.20); RED CELL DISTRIBUTION WIDTH 16.2 % (11.5-14.5)
[2017-11-15 09:22] LABS: CALCIUM, TOTAL 9.4 mg/dL (8.8-10.5); CREATININE 1.22 mg/dL (0.60-1.30); POTASSIUM 3.5 mmol/L (3.5-5.1)
[2017-11-15 09:27] LABS: ALBUMIN 2.6 g/dL (3.4-5.0); BILIRUBIN,TOTAL 0.2 mg/dL (0.1-1.0); TOTAL PROTEIN, SERUM 8.2 g/dL (6.4-8.2)
[2017-11-15 11:19] VITALS: BP 156/65
== END 2017-11-15 11:37 | disposition home or self-care (01) ==
LOC: EMS 07:18
DX: F41.9 Anxiety disorder, unspecified (principal); D64.9 Anemia, unspecified; R30.0 Dysuria; E78.00 Pure hypercholesterolemia, unspecified; I10 Essential (primary) hypertension; F20.9 Schizophrenia, unspecified; F17.210 Nicotine dependence, cigarettes, uncomplicated; F13.90 Sedative, hypnotic, or anxiolytic use, unspecified, uncomplicated; Z88.0 Allergy status to penicillin; Z88.5 Allergy status to narcotic agent
CPT/HCPCS: 99284